=== PATIENT | male | born 1955 | race African-American/Black ===

== ENCOUNTER 2016-10-13 08:24 | Inpatient (IN) | payer MEDICAID ==
[~2016-10-13] VITALS: Ht 172.7 cm; Wt 66.5 kg
[2016-10-13] VITALS (24 sets, daily range): BP systolic 91–150; BP diastolic 56–94
[~2016-10-13 08:24] MED LIST: ALBUTEROL FS 2.5 MG/3 ML VIAL.NEB ONE
[2016-10-13] MEDS ORDERED: IPRATROPIUM NEB FS 0.5 MG/2.5 ML AMPUL.NEB ONE (08:25)
[2016-10-13] MEDS ORDERED: ALBUTEROL FS 2.5 MG/3 ML VIAL.NEB CONTNEB ONE (08:30)
[2016-10-13] MEDS ORDERED: IV NS 0.9% 500 ML IV ONE ×2 (08:30→08:31)
[2016-10-13] MEDS ORDERED: LEVOFLOXACIN 750 MG /D5W 150ML 750 MG in PREMIX 1 EA IV SCH (08:30)
[2016-10-13] MEDS ORDERED: IPRATROPIUM NEB FS 0.5 MG/2.5 ML AMPUL.NEB NEB ONE (08:30)
[2016-10-13] MEDS ORDERED: methylPREDNISolone SOD SUCC 125 MG/2ML VIAL IV ONE (08:30)
[2016-10-13] MEDS ORDERED: IV SET PRIMARY PUMP SET 1 EA INFUS.SET MC ONE ×3 (08:31→11:54)
[2016-10-13] MEDS ORDERED: methylPREDNISolone SOD SUCC 125 MG/2ML VIAL ONE (08:31)
[2016-10-13] MEDS ORDERED: LEVOFLOXACIN 750 MG /D5W 150ML 150 ML IV ONE (08:31)
[2016-10-13 08:41] LABS: ABG BASE EXCESS 1.7 mmol/L; ABG OXYGEN SATURATION 95.6 % (92.0-98.5); ABG PCO2 81.6 mmHg (35.0-45.0); ABG PH 7.213 (7.350-7.450); ABG PO2 92.1 mmHg (75.0-100.0); ABG TOTAL HEMOGLOBIN 14.1 G/dL (13.5-18.0); AaDO2 99.3 mmHg; COHb 0.7 % (0.5-1.5); MetHb 0.3 % (0.0-1.5); O2Hb 94.6 % (94.0-97.0); SITE, ABG Left Radial; VENT MODE, BG 6L MASK
--- NOTE | 2016-10-13 08:43 | NUR ---
[id number] FROM 4 SEASONS: SOB, HYPOXIA SINCE 744. ALBUTEROL GIVEN IN FIELD. PT AAO X3. PT WHEEZING. PT PLACED IN GOWN AND MONITOR. DR CRUZ AT BEDSIDE. RT AT BEDSIDE. RN AT BEDSIDE.
--- NOTE | 2016-10-13 08:51 | NUR ---
PT PLACED ON BIPAP 15/5, RATE 11, FIO2 50%. CONTINUE TO MONITOR.
[2016-10-13 09:10] LABS: CALCIUM, SERUM 8.9 mg/dL (8.5-10.1); CARBON DIOXIDE 34 mmol/L (21-32); CHLORIDE 103 mmol/L (98-107); CREATININE 0.7 mg/dL (0.6-1.3); GFR 138 mL/min (>60); GLUCOSE 153 mg/dL (74-106); POTASSIUM 4.4 mmol/L (3.5-5.1); SODIUM SERUM 142 mmol/L (136-145); UREA NITROGEN, BLOOD 9 mg/dL (7-18)
[2016-10-13] MEDS ORDERED: NA P133E RC (09:14)
[2016-10-13] MEDS ORDERED: VIT1CAPS32 PO (09:14)
[2016-10-13] MEDS ORDERED: FLUT10.62 INH (09:14)
[2016-10-13] MEDS ORDERED: FLUT1DIS INH (09:14)
[2016-10-13] MEDS ORDERED: AMLO10TA2 PO (09:14)
[2016-10-13] MEDS ORDERED: PANT40TA2 PO (09:14)
[2016-10-13] MEDS ORDERED: HYDR-552 PO (09:14)
[2016-10-13] MEDS ORDERED: ASPI81TA2 PO (09:14)
[2016-10-13] MEDS ORDERED: HYDR12.55 PO (09:14)
[2016-10-13] MEDS ORDERED: SERT25TA5 PO (09:14)
[2016-10-13] MEDS ORDERED: MAGN400O6 PO (09:14)
[2016-10-13] MEDS ORDERED: LEVE1000 PO (09:14)
[2016-10-13] MEDS ORDERED: ALBU2.5V13 INH (09:14)
[2016-10-13] MEDS ORDERED: ACET-868 PO (09:14)
[2016-10-13 09:18] LABS: TROPONIN I < 0.017 ng/mL (0.00-0.056)
[2016-10-13 09:25] LABS: ALANINE AMINOTRANSFERASE 35 U/L (12-78); ALBUMIN 3.7 g/dL (3.4-5.0); ALKALINE PHOSPHATASE 103 U/L (46-116); ASPARTATE AMINOTRANSFERASE 35 U/L (15-37); B-TYPE NATRIURETIC PEPTIDE 62 PG/ML (0-125); BILIRUBIN,DIRECT 0.1 mg/dL (0.0-0.2); BILIRUBIN,TOTAL 0.3 mg/dL (0.2-1.0); TOTAL PROTEIN, SERUM 8.3 g/dL (6.4-8.2)
[2016-10-13] MEDS ORDERED: PIPERACILLIN /TAZOBACTAM 3.375 G in IV D5W 50 ML IV ONE (09:30)
--- NOTE | 2016-10-13 09:30 | NUR ---
PT VERBALIZES RELIEF WITH BIPAP. CONTINUE TO MONITOR.
[2016-10-13 09:37] LABS: BASOPHILS % (AUTO) 0.4 % (0.0-2.0); EOSINOPHILS # (AUTO) 0.4 /CMM (0.0-0.7); EOSINOPHILS % (AUTO) 5.2 % (0.0-6.0); HEMATOCRIT 41 % (39-51); HEMOGLOBIN 13.3 g/dL (13.5-17.5); LYMPHOCYTES # (AUTO) 2.8 /CMM (0.8-4.8); LYMPHOCYTES % (AUTO) 35.6 % (20.0-44.0); MEAN CORPUSCULAR HEMOGLOBIN 29 PG (26.0-33.0); MEAN CORPUSCULAR HGB CONC 32 g/dl (31.0-36.0); MEAN CORPUSCULAR VOLUME 91 fL (80-96); MONOCYTES # (AUTO) 1.2 /CMM (0.1-1.30); MONOCYTES % (AUTO) 15.1 % (2.0-12.0); NEUTROPHILS # (AUTO) 3.5 /CMM (1.8-8.9); NEUTROPHILS % (AUTO) 43.7 % (43.0-81.0); PLATELET COUNT (AUTO) 251 /CMM (150-450); RED BLOOD CELL COUNT(AUTO) 4.52 MIL/uL (4.5-6.0)
[2016-10-13 09:51] LABS: EOSINOPHILS % (MANUAL) 5 % (0-4); LYMPHOCYTES % (MANUAL) 31 % (16-48); MONOCYTES % (MANUAL) 14 % (0-11.0); NEUTROPHILS % (MANUAL) 50 (42-76)
[2016-10-13 09:52] LABS: PLATELET ESTIMATE ADEQUATE
--- NOTE | 2016-10-13 10:08 | NUR ---
REPORT GIVEN TO SAM WOLF FOR CONTINUITY OF CARE.
--- NOTE | 2016-10-13 10:30 | NUR ---
SAMPLE WASHER NOTES RECEIVED PATIENT FROM ER DUE TO COPD EXACERBATION , AOX3 , DENIES DISCOMFORT AT THIS TIME , SPO2 OF 97% VIA BIPAP WITH SETTINGS OF 15/5 , RATE 12 FIO2 50% , ST 115 ON BEDSIDE MONITOR , SKIN ASSESSMENT DONE NO WOUNDS NOTED , SKIN IS INTACT , IV OF L FA # 18 AND R HAND # 18 PATENT AND INTACT SL , ALL NEEDS ATTENDED , BED ON LOW AND LOCKED POSITION , SIDE RAILS X2 ,CALL LIGHT WITHIN REACH , HOB @ 35 , WILL CONTINUE TO MONITOR
[2016-10-13] MEDS ORDERED: ONDANSETRON HCL/PF 4 MG/2 ML VIAL IVP PRN (11:00)
[2016-10-13] MEDS ORDERED: Z GUARD REMEDY 2 OZ OINT TP PRN (11:00)
[2016-10-13] MEDS ORDERED: ACETAMINOPHEN 325 MG TABLET PO PRN (11:00)
[2016-10-13] MEDS ORDERED: MAGNESIUM HYDROXIDE 30 ML UDC PO PRN (11:00)
[2016-10-13] MEDS ORDERED: MAG HYDROX/AL HYDROX/SIMETH 30 ML UDC PO PRN (11:00)
[2016-10-13] MEDS ORDERED: NA PHOS,M-B/NA PHOS,DI-BA 1 EA ENEMA RC PRN (11:30)
[2016-10-13] MEDS ORDERED: SECONDARY IV SET 1 EA INFUS.SET MC ONE (11:54)
[2016-10-13] MEDS: PANTOPRAZOLE 40 MG VIAL IV SCH (12:00)
[2016-10-13] MEDS: methylPREDNISolone SOD SUCC 125 MG/2ML VIAL IV SCH ×2 (12:00→16:03)
[2016-10-13] MEDS ORDERED: ALBUTEROL FS 2.5 MG/0.5 ML VIAL.NEB INH SCH (12:00)
[2016-10-13] MEDS: IV NS 0.9% 1,000 ML IV PRN ×2 (12:01→22:57)
[2016-10-13 12:20] LABS: ABG BASE EXCESS 3.2 mmol/L; ABG OXYGEN SATURATION 95.1 % (92.0-98.5); ABG PCO2 76.2 mmHg (35.0-45.0); ABG PH 7.251 (7.350-7.450); ABG PO2 90.4 mmHg (75.0-100.0); ABG TOTAL HEMOGLOBIN 13.4 G/dL (13.5-18.0); AaDO2 180.4 mmHg; COHb 0.9 % (0.5-1.5); MetHb 0.8 % (0.0-1.5); O2Hb 93.5 % (94.0-97.0); SITE, ABG Right Radial; VENT MODE, BG ST 15/5 BUR 12
[2016-10-13] MEDS: IPRATROPIUM NEB FS 0.5 MG/2.5 ML AMPUL.NEB NEB SCH ×4 (12:26→23:52)
[2016-10-13] MEDS: ALBUTEROL HALF STRENGTH 1.25 MG/3 ML VIAL.NEB NEB SCH ×4 (12:27→23:52)
--- NOTE | 2016-10-13 12:29 | NUR ---
AIRPLANE COVER MAKER NOTES RT VERNA RELAYED ABG RESULT TO DR MASCORRO , ORDERED TO CHANGE BIPAP SETTINGS TO 22/5 , FIO2 50% RATE OF 12 , ABG AFTER TWO HOURS , ORDERS CARRIED OUT
[2016-10-13] MEDS: LEVOFLOXACIN 750 MG /D5W 150ML 750 MG in PREMIX 1 EA IV SCH (12:31)
--- NOTE | 2016-10-13 13:58 | NUR ---
ART STUDIO TEACHER NOTES SPOKE WITH JAX INGRAM PUBLICATIONS INSPECTOR , NOTIFIED REGARDING HYDRODIURIL 12.5 DAILY PRN PARAMETERS , PER PUBLICATIONS INSPECTOR GIVE MEDICATION IF SBP GREATER THAN 160 , PT ALSO HAS A CRANBERRY EXTRACT , PER PHARMACY THEY DON'T CARRY THAT MEDICATION , PER MD DISCONTINUE CRANBERRY EXTRACT
--- NOTE | 2016-10-13 14:30 | NUR ---
SENIOR PATIENT ACCOUNT REPRESENTATIVE NOTES ABG RELAYED TO DR MASCORRO , NOTIFIED PT ON BIPAP 03/11 RATE 12 FIO2 50 , PER MD CHANGE FIO2 TO 30% , ORDERED CARRIED OUT .
[2016-10-13 14:56] LABS: ABG BASE EXCESS 2.1 mmol/L; ABG OXYGEN SATURATION 98.8 % (92.0-98.5); ABG PCO2 68.6 mmHg (35.0-45.0); ABG PO2 220.3 mmHg (75.0-100.0); ABG TOTAL HEMOGLOBIN 12.9 G/dL (13.5-18.0); COHb 0.6 % (0.5-1.5); O2Hb 97.2 % (94.0-97.0); SITE, ABG Right Radial; VENT MODE, BG ST 22/5 BUR 12
[2016-10-13] MEDS ORDERED: FLUTICASONE 110MCG 1 EA INHALER IH SCH (17:00)
--- NOTE | 2016-10-13 19:30 | NUR ---
RN INITIAL NOTES RECEIVED PT AWAKE ON BED, A/O X3. ON BIPAP, RATE 12, 30% FIO2, SATURATING WELL, NO S/S OF RESP DISTRESS. CURRENTLY ST ON THE MONITOR, HR 100'S. PT IS ON DIAPER AND ABLE TO USE URINAL NEEDED. LEFT FOREARM 18G AND RIGHT HAND 18G WITH NS @ 75MLS/HR, FLUSHED AND PATENT, NO S/S OF INFILTRATION/INFECTION, DRESSING CDI. BED LOW AND LOCKED, SIDERAILS UP, CALL LIGHT WITHIN REACH. WILL MONITOR CLOSELY
[2016-10-13] MEDS: LEVETIRACETAM (250 MG) 250 MG TABLET PO SCH (20:03)
[2016-10-13] MEDS: HEPARIN SODIUM, PORCINE 5000 UNITS/1 ML VIAL SQ SCH (20:04)
[2016-10-13] MEDS: FLUTICASONE/SALMETEROL DISKUS IH SCH (20:04)
[2016-10-13] MEDS: HYDROCODONE/APAP 5/325MG 1 EACH TABLET PO PRN (20:45)
[2016-10-13] MEDS ORDERED: LORAZEPAM INJ 2 MG/ML VIAL ONE (22:47)
[2016-10-13] MEDS: LORAZEPAM INJ 2 MG/ML VIAL IV PRN (22:57)
[2016-10-14] VITALS (42 sets, daily range): BP systolic 99–153; BP diastolic 60–103
[2016-10-14] MEDS: ALBUTEROL HALF STRENGTH 1.25 MG/3 ML VIAL.NEB NEB SCH ×6 (03:03→22:59)
[2016-10-14] MEDS: IPRATROPIUM NEB FS 0.5 MG/2.5 ML AMPUL.NEB NEB SCH ×6 (03:03→22:59)
[2016-10-14] MEDS: HYDROCODONE/APAP 5/325MG 1 EACH TABLET PO PRN (03:36)
[2016-10-14 04:39] LABS: BASOPHILS % (AUTO) 0.1 % (0.0-2.0); EOSINOPHILS % (AUTO) 0.3 % (0.0-6.0); HEMATOCRIT 35 % (39-51); HEMOGLOBIN 11.4 g/dL (13.5-17.5); LYMPHOCYTES # (AUTO) 1.3 /CMM (0.8-4.8); MEAN CORPUSCULAR HEMOGLOBIN 30 PG (26.0-33.0); MEAN CORPUSCULAR HGB CONC 32 g/dl (31.0-36.0); MEAN CORPUSCULAR VOLUME 92 fL (80-96); MONOCYTES # (AUTO) 0.5 /CMM (0.1-1.30); MONOCYTES % (AUTO) 6.6 % (2.0-12.0); NEUTROPHILS # (AUTO) 6.4 /CMM (1.8-8.9); PLATELET COUNT (AUTO) 226 /CMM (150-450); RED BLOOD CELL COUNT(AUTO) 3.84 MIL/uL (4.5-6.0); WHITE BLOOD COUNT (AUTO) 8.3 K/uL (4.3-11.0)
[2016-10-14 04:59] LABS: CALCIUM, SERUM 8.9 mg/dL (8.5-10.1); CREATININE 0.7 mg/dL (0.6-1.3); MAGNESIUM 1.8 mg/dL (1.8-2.4); PHOSPHORUS 3.4 mg/dL (2.5-4.9); POTASSIUM 4.4 mmol/L (3.5-5.1)
[2016-10-14 05:05] LABS: THYROID STIMULATING HORMONE 0.196 uIU/mL (0.358-3.74)
[2016-10-14] MEDS ORDERED: LORAZEPAM INJ 2 MG/ML VIAL ONE (05:12)
[2016-10-14] MEDS: LORAZEPAM INJ 2 MG/ML VIAL IV PRN ×3 (05:17→17:00)
--- NOTE | 2016-10-14 08:00 | NUR ---
SUPERVISOR CARTON AND CAN SUPPLY NOTE: RECEIVE PATIENT IN BED AWAKE AN ALERT TO SELF, CONFUSED AND AGITATED REMOVING BIPAP. BIPAP SETTINGS R 12 22/5 30%, SPO2 WNL HOWEVER PATIENT DESATURATES EASILY WHEN BIPAP IS REMOVED. STACHYCARDIA ON MONITOR HR 120'S. PATIENT NOTED WITH DIAPER AND RHAND 20G RUNNING NS @75ML/HR, IV PATENT AND INTACT. PATIENT REORIENTED AND MADE COMFORTABLE IN BED, RT AT BEDSIDE. SAFETY MEASURES OBSERVED. CALL LIGHT PLACED WITHIN REACH. ONGOING MONITORING
[2016-10-14] MEDS: PANTOPRAZOLE 40 MG VIAL IV SCH (08:21)
[2016-10-14] MEDS: methylPREDNISolone SOD SUCC 125 MG/2ML VIAL IV SCH ×3 (08:22→17:14)
[2016-10-14] MEDS: ASPIRIN 81 MG TAB.CHEW PO SCH (08:22)
[2016-10-14] MEDS: FLUTICASONE/SALMETEROL DISKUS IH SCH ×2 (08:22→21:00)
[2016-10-14] MEDS: LEVETIRACETAM (250 MG) 250 MG TABLET PO SCH ×2 (08:23→20:56)
[2016-10-14] MEDS: AMLODIPINE BESYLATE 10 MG TABLET PO SCH (08:23)
[2016-10-14] MEDS: SERTRALINE HCL 25 MG TABLET PO SCH (08:23)
[2016-10-14] MEDS: HEPARIN SODIUM, PORCINE 5000 UNITS/1 ML VIAL SQ SCH ×2 (08:23→20:58)
[2016-10-14 08:56] LABS: ABG BASE EXCESS 3.7 mmol/L; ABG OXYGEN SATURATION 93.6 % (92.0-98.5); ABG PCO2 62.3 mmHg (35.0-45.0); ABG PH 7.319 (7.350-7.450); ABG PO2 74.7 mmHg (75.0-100.0); ABG TOTAL HEMOGLOBIN 12.3 G/dL (13.5-18.0); COHb 0.4 % (0.5-1.5); MetHb 0.6 % (0.0-1.5); O2Hb 92.7 % (94.0-97.0); SITE, ABG Right Radial; VENT MODE, BG ST 22/5 BUR 12
[2016-10-14] MEDS ORDERED: Medication Not On Formulary EA (Vit C/Vitamin E Acetate/Cranb (Cranberry Concentrate Sof PO SCH (09:00)
[2016-10-14] MEDS ORDERED: HYDROCHLOROTHIAZIDE 25 MG TABLET PO PRN (09:00)
--- NOTE | 2016-10-14 09:00 | NUR ---
SLITTER CREASER SLOTTER HELPER NOTE: ABG DONE, RESULT REPORTED TO DR. MASCORRO. PATIENT CONTINUES ON BIPAP. NOTED WITH ONGOING CONFUSION AND AGITATION, REORIENTATION PROVIDED. BIPAP ADJUSTED. SAFETY MAINTAINED, CALL LIGHT WITHIN REACH. ONGOING MONITORING
--- NOTE | 2016-10-14 10:30 | NUR ---
OIL SPREADER OPERATOR NOTE: PATIENT CONTINUES TO BE CONFUSED, REMOVING BIPAP MORE FREQUENTLY, UNABLE TO REORIENT AT THIS TIME. RECEIVED ORDER FROM DR. MASCORRO FOR BILATERAL SOFT WRIST RESTRAINTS. BED BATH GIVEN, PATIENT CLEAN AND DRY. ALL LINENS CHANGED. EDUCATION PROVIDED TO PATIENT AND RESTRAINTS APPLIED. SAFETY MAINTAINED. ONGOING MONITORING
--- NOTE | 2016-10-14 11:26 | NUR ---
QUARTZ MINER BLASTING NOTE: PATIENT NOTED TO BE VERY AGITATED, LEGS OUT OF BED, PATIENT ASSISTED BACK INTO BED, REORIENTED. NOTED WITH INCREASED WORK OF BREATHING HR 130'S SPO2 91%. CHARGE NURSE AT BEDSIDE, RT AT BEDSIDE. PATIENT STATES THAT HE IS ANXIOUS. ATIVAN 0.5MG IVP ADMINISTERED PER ORDER IN AGREEMENT WITH CHARGE NURSE. SAFETY MAINTAINED. CLOSE MONITORING OF PATIENT.
--- NOTE | 2016-10-14 11:44 | NUR ---
VAC PRESS OPERATOR NOTE: DR. TRAN AT BEDSIDE MADE AWARE OF PATIENT'S CONDITION, AND INFORMED THAT PATIENT HAS RECEIVED ATIVAN 0.5MG, RECEIVED ORDER FOR ANOTHER ATIVAN 0.5MG TO BE ADMINISTERED ONCE NOW. MEDICATION ADMINISTERED ORDERED. ONGOING MONITORING.
[2016-10-14] MEDS ORDERED: LORAZEPAM INJ 2 MG/ML VIAL IV ONE (12:00)
[2016-10-14] MEDS: IV NS 0.9% 1,000 ML IV PRN (12:30)
[2016-10-14] MEDS: LEVOFLOXACIN 750 MG /D5W 150ML 750 MG in PREMIX 1 EA IV SCH (12:30)
--- NOTE | 2016-10-14 14:50 | NUR ---
PT ORALLY INTUBATED BY ER WITH 7.0 ET-TUBE SECURED AT 24CM. B/S EQUAL POSITIVE CO2 DETECTION. PATIENT PLACED ON MECH. VENT SETTINGS ORDERED ALARMS SET AND AUDIBLE. AMBUBAG AT HEAD OF BED. VENT PLUGGED INTO RED OUTLET.
--- NOTE | 2016-10-14 14:52 | NUR ---
ICU INTUBATION NOTE: DR. MASCORRO AT BEDSIDE. PATIENT NOTED TO BE ALERT TO SELF WITH INCREASED WORK OF BREATHING, TACHYPNEIC, TACHYCARDIA HR 140'S. SPO2 91% ON BIPAP SUPPORT. RECEIVED ORDER FOR INTUBATION. CALL MADE TO ER DOCTOR AND RT. RECEIVED ORDER FROM ER DOCTOR TO ADMINISTER ETOMIDATE 20MG AND ROCURONIUM 80MG. MEDICATION DRAWN AND ADMINISTERED PER ORDER. PATIENT INTUBATED WITH ETT 7.0 24 CMS AT THE LIP. OGTUBE INSERTED, STAT CHEST XRAY ORDERED AND DONE. PATIENT ON VENT WITH AC 16 TV 550 FIO2 40% AND PEEP OF 5. RECEIVED ORDER FROM DR. MASCORRO FOR DIPRIVAN DRIP. DR. TRAN MADE AWARE AND RECEIVED ORDER FOR MCKINLEY CATHETER FOR STRICT I&O MONITORING AND OGT PLACEMENT.ONGOING MONITORING.
[2016-10-14] MEDS ORDERED: ETOMIDATE 2 MG/ML VIAL IV ONE ×2 (14:58)
[2016-10-14] MEDS ORDERED: ROCURONIUM BROMIDE 50 MG/5 ML IV ONE (14:58)
[2016-10-14] MEDS ORDERED: IV SET PRIMARY PUMP SET 1 EA INFUS.SET MC ONE (15:29)
[2016-10-14] MEDS: PROPOFOL 100 ML IV PRN ×2 (16:00→20:44)
--- NOTE | 2016-10-14 16:00 | NUR ---
REACTOR FUELING SUPERVISOR NOTE: PER ORDER DIPRIVAN DRIP STARTED AT 5MCG/KG/MIN AND WILL TITRATE PER PROTOCOL IN ORDER TO KEEP PATIENT CALM AND COMFORTABLE. ONGOING MONITORING.
[2016-10-14 16:11] LABS: ABG BASE EXCESS 3.4 mmol/L; ABG OXYGEN SATURATION 97.6 % (92.0-98.5); ABG PCO2 51.9 mmHg (35.0-45.0); ABG PH 7.375 (7.350-7.450); AaDO2 119.5 mmHg; COHb 1.3 % (0.5-1.5); MetHb 0.9 % (0.0-1.5); O2Hb 95.5 % (94.0-97.0); SITE, ABG Right Brachial; VENT MODE, BG AC 16 550 40 +5
--- NOTE | 2016-10-14 16:31 | NUR ---
POULTRY VACCINATOR NOTE: RECEIVED CXR REPORT WITH ETT 7CM ABOVE PRISCILLA, RESULT REPORTED TO DR. MASCORRO RECEIVED ORDER TO ADVANCE ETT IN 3 CM. ABG IN AM AND CXR IN AM. RT MADE AWARE AND ETT ADVANCED. PATIENT RESTING COMFORTABLY IN BED. VSS, HR 118. ONGOING MONITORING.
--- NOTE | 2016-10-14 17:00 | NUR ---
HONING MACHINE OPERATOR PRODUCTION NOTE: ETT 7 NOTED TO BE 26.5CM AT THE LIP. NO DISTRESS NOTED. VS STABLE. ONGOING MONITORING
--- NOTE | 2016-10-14 17:00 | NUR ---
ET-TUBE ADVANCED TO 26.5CM PER MD ORDER.
--- NOTE | 2016-10-14 18:00 | NUR ---
MILITARY SCIENCE TEACHER NOTE: RECEIVED CALL FROM [facility] AND CRITICAL LAB REPORT THAT PATIENT IS MRSA POSITIVE, CALL MADE TO DR. TRAN AND INFORMED OF RESULT. RECEIVED TELEPHONE ORDER FOR BACTROBAN BID. ORDER READ BACK AND VERIFIED. WILL CARRY OUT.
--- NOTE | 2016-10-14 18:17 | NUR ---
ASSISTANT STORE MANAGER SALES NOTE: PATIENT RESTING IN BED INTUBATED WITH ETT 7/ 26.5CMS AT THE LIP WITH VENT SETTINGS AC 16 TV 550 FIO2 40% AND PEEP 5, NO DISTRESS NOTED. VS STABLE AT THIS TIME. SR ON TELE MONITOR. PATIENT SEDATED ON DIPRIVAN AT 50MCG/KG/MIN. [id number] RUNNING NS @ 75ML/HR, LFA 20G RUNNING DIPRIVAN. MCKINLEY CATHETER DRAINING CLEAR YELLOW URINE TO GRAVITY. BILATERAL SOFT WRIST RESTRAINTS IN PLACE TO PREVENT UNPLANNED EXTUBATION. SKIN AND CIRCULATION CHECK DONE, SAFETY MAINTAINED. PATIENT TURNED AND REPOSITIONED AND KEPT CLEAN AND DRY. EXTREMITIES OFFLOADED. ONGOING MONITORING.
--- NOTE | 2016-10-14 20:27 | NUR ---
AUTO SERVICE WRITER. INITIAL ASSESSMENT. RECEIVED THE PT REST ON THE BED. ORALLY INTUBATED. SEDATED EARL DIPRIVAN.ETT #7, LIP 26.5,AC 16,TV 550,FIO2 40%, PEEP 5. SAT 98%/ CARDIAC MONITIR SHOWING NSR. IV RT HAND 20G. IVF NS 75 ML/H,DIPRIVAN 50MCG/KG/MIN. FC PATENT. URINE DRAINING. OGT INTACT. CLAMPED. HOB ELEVATED. NPO, TAMIA SOFT WRIST RESTRAINT CHECKED AND RELEASED. NO INJURY OR REDNESS NOTED.PT IS NPO. TURN AND REPOSITION Q2H. WILL CONTINUE TO MONITOR VITALS.
[2016-10-14] MEDS: MUPIROCIN OINT 2% 22 GM TUBE SCH (20:59)
--- NOTE | 2016-10-14 22:00 | NUR ---
HUMAN RESOURCE ASSISTANT. ADVIR NOT GIVEN. PT ORALLY INTUBATED. PT GETTING BREATHING TREATMENT
[2016-10-15] VITALS (47 sets, daily range): BP systolic 92–134; BP diastolic 58–91
[2016-10-15] MEDS: PROPOFOL 100 ML IV PRN ×6 (00:15→21:13)
[2016-10-15] MEDS ORDERED: IV SET PRIMARY PUMP SET 1 EA INFUS.SET MC ONE ×2 (01:50→12:06)
[2016-10-15] MEDS: IV NS 0.9% 1,000 ML IV PRN ×2 (02:16→17:55)
--- NOTE | 2016-10-15 02:20 | NUR ---
TERMITE TREATER HELPER. AM CARE. ORAL CARE, BED BATH GIVEN. LINEN CHANGED. REMAINING SAME VENT SETTING TOLERATED WELL. SAT 99%. NO ACUTE DISTRESS NOTED. STOCK CHECKERER SHOWING NSR WITH PACS, IV RT HAND 20G. IVF NS 75 ML/H, DIPRIVAN 50 MCG/KG/MIN.TAMIA SOFT WRIST RESTRAINT CHECKED AND RELEASED. NO INJURY OR REDNESS NOTED RT NARE NGT INTACT. CLAMPED. HOB ELEVATED. NPO. AFEBRILE. TURN AND REPOSITION Q2H. WILL CONTINUE TO MONITOR VITALS.
[2016-10-15] MEDS: IPRATROPIUM NEB FS 0.5 MG/2.5 ML AMPUL.NEB NEB SCH ×6 (03:28→23:42)
[2016-10-15] MEDS: ALBUTEROL HALF STRENGTH 1.25 MG/3 ML VIAL.NEB NEB SCH ×6 (03:28→23:42)
[2016-10-15 05:00] LABS: BASOPHILS % (AUTO) 0.3 % (0.0-2.0); HEMATOCRIT 37 % (39-51); HEMOGLOBIN 12.2 g/dL (13.5-17.5); LYMPHOCYTES # (AUTO) 1.1 /CMM (0.8-4.8); LYMPHOCYTES % (AUTO) 10.2 % (20.0-44.0); MEAN CORPUSCULAR HEMOGLOBIN 30 PG (26.0-33.0); MEAN CORPUSCULAR HGB CONC 33 g/dl (31.0-36.0); MEAN CORPUSCULAR VOLUME 91 fL (80-96); MONOCYTES % (AUTO) 9.3 % (2.0-12.0); NEUTROPHILS # (AUTO) 8.4 /CMM (1.8-8.9); NEUTROPHILS % (AUTO) 80.2 % (43.0-81.0); PLATELET COUNT (AUTO) 245 /CMM (150-450); RDW COEFFICIENT OF VARIATION 13.6 (11.5-15.0); RED BLOOD CELL COUNT(AUTO) 4.11 MIL/uL (4.5-6.0); WHITE BLOOD COUNT (AUTO) 10.5 K/uL (4.3-11.0)
[2016-10-15 05:15] LABS: CALCIUM, SERUM 8.7 mg/dL (8.5-10.1); CREATININE 0.6 mg/dL (0.6-1.3); PHOSPHORUS 1.8 mg/dL (2.5-4.9); POTASSIUM 3.7 mmol/L (3.5-5.1)
--- NOTE | 2016-10-15 08:00 | NUR ---
ETCHER ENAMELING NOTE: ADVAIR NOTE GIVEN, PATIENT INTUBATED.
--- NOTE | 2016-10-15 08:00 | NUR ---
RN TRANSITIONAL NOTE: RECEIVED PATIENT RESTING IN BED INTUBATED WITH ETT 7/ 26.5CMS AT THE LIP WITH VENT SETTINGS AC 16 TV 550 FIO2 40% AND PEEP 5, TOLERATING WELL NO DISTRESS NOTED. VS STABLE AT THIS TIME. SR WITH PAC'S ON TELE MONITOR. PATIENT SEDATED ON DIPRIVAN AT 50MCG/KG/MIN. RHAND 20G RUNNING NS @ 75ML/HR, LFA 20G RUNNING DIPRIVAN. OGTUBE PATENT AND INTACT PLACEMENT VERIFIED, CLAMPED PATIENT IS NPO. MCKINLEY CATHETER DRAINING CLEAR YELLOW URINE TO GRAVITY. BILATERAL SOFT WRIST RESTRAINTS IN PLACE TO PREVENT UNPLANNED EXTUBATION. SKIN AND CIRCULATION CHECK DONE, SAFETY MAINTAINED. PATIENT TURNED AND REPOSITIONED AND KEPT CLEAN AND DRY. EXTREMITIES OFFLOADED. ONGOING MONITORING.
[2016-10-15] MEDS: HEPARIN SODIUM, PORCINE 5000 UNITS/1 ML VIAL SQ SCH ×2 (08:31→21:06)
[2016-10-15] MEDS: ASPIRIN 81 MG TAB.CHEW PO SCH (08:31)
[2016-10-15] MEDS: PANTOPRAZOLE 40 MG VIAL IV SCH (08:32)
[2016-10-15] MEDS: LEVETIRACETAM (250 MG) 250 MG TABLET PO SCH ×2 (08:32→21:06)
[2016-10-15] MEDS: methylPREDNISolone SOD SUCC 125 MG/2ML VIAL IV SCH ×3 (08:32→17:02)
[2016-10-15] MEDS: SERTRALINE HCL 25 MG TABLET PO SCH (08:32)
[2016-10-15] MEDS: FLUTICASONE/SALMETEROL DISKUS IH SCH (08:34)
[2016-10-15] MEDS: AMLODIPINE BESYLATE 10 MG TABLET PO SCH (08:34)
[2016-10-15] MEDS: MUPIROCIN OINT 2% 22 GM TUBE SCH ×2 (08:35→21:06)
--- NOTE | 2016-10-15 08:45 | NUR ---
FOAM RUBBER FABRICATOR NOTE: SEDATION VACATION PROVIDED. PATIENT NOTED TO BE ALERT AND ORIENTED TO PERSON AND PLACE ABLE TO FOLLOW COMMANDS. VS STABLE HOWEVER PATIENT VERY UNCOMFORTABLE SITTING UP. SEDATION INITIATED AND TITRATED PER PROTOCOL. DR. MASCORRO MADE AWARE OF PATIENT'S NEUROLOGIC STATUS. ONGOING MONITORING
[2016-10-15 09:04] LABS: ABG BASE EXCESS 5.7 mmol/L; ABG PCO2 42.9 mmHg (35.0-45.0); ABG PH 7.464 (7.350-7.450); ABG TOTAL HEMOGLOBIN 12.5 G/dL (13.5-18.0); AaDO2 99.9 mmHg; COHb 0.3 % (0.5-1.5); O2Hb 96.7 % (94.0-97.0); SITE, ABG Right Radial
--- NOTE | 2016-10-15 11:27 | NUR ---
POST ABG RESULTS DR MASCORRO ORDERED VENT CHANGES AC12, VT 500, +5. VENT ALARMS CHECKED + AUDIBLE. RN AWARE. Addendum: 10/15/16 at 1128 by RAMÍREZ DONOVAN RT Amended: Links added.
[2016-10-15] MEDS: LEVOFLOXACIN 750 MG /D5W 150ML 750 MG in PREMIX 1 EA IV SCH (12:14)
--- NOTE | 2016-10-15 13:43 | NUR ---
WOUND CARE CONSULT: PT PRESENTS WITH INTACT SKIN. PT TO BE TURNED AND REPOSITIONED EVERY 2 HRS PT CONDITION PERMITS, HEELS FLOATED. MCKINLEY IN USE. PT INTUBATED AT THIS TIME. ALL SKIN PROTECTION MEASURES DISCUSSED WITH NURSING STAFF. MD IN AGREEMENT WITH PLAN OF CARE.
[2016-10-15] MEDS ORDERED: K PHOS NEUTRAL 250 MG TABLET NG ONE (18:00)
--- NOTE | 2016-10-15 18:45 | NUR ---
FRICTION SAW OPERATOR NOTE: PATIENT RESTING IN BED INTUBATED WITH ETT / 26.5CMS AT THE LIP WITH VENT SETTINGS ORDERED NO DISTRESS NOTED. VS STABLE AT THIS TIME. SR ON TELE MONITOR. PATIENT SEDATED ON DIPRIVAN AT 50MCG/KG/MIN. RHAND 20G RUNNING NS @ 75ML/HR, LFA 20G RUNNING DIPRIVAN. MCKINLEY CATHETER DRAINING CLEAR YELLOW URINE TO GRAVITY. BILATERAL SOFT WRIST RESTRAINTS IN PLACE TO PREVENT UNPLANNED EXTUBATION. SKIN AND CIRCULATION CHECK DONE, SAFETY MAINTAINED. PATIENT TURNED AND REPOSITIONED AND KEPT CLEAN AND DRY. EXTREMITIES OFFLOADED. ONGOING MONITORING.
--- NOTE | 2016-10-15 19:09 | NUR ---
BATCH ATTENDANT. INITIAL ASSESSMENT. RECEIVED THE PT REST ON THE BED. ORALLY INTUBATED. ETT #7, LIP 26,AC 12,TV 500,FIO2 40%, PEEP 5. SAT 98%. RED LEADER SHOWING NSR. IV RT HAND 20G. IVF NS 75 ML/H, DIPRIVAN 50MCG/KG/MIN. OGT INTACT. CLAMPED. FC PATENT. URINE DRAINING. AFEBRILE. TURN AND REPOSITION Q2H. WILL CONTINUE TO MONITOR VITALS.
[2016-10-16] VITALS (63 sets, daily range): BP systolic 40–136; BP diastolic 19–93
[2016-10-16] MEDS: PROPOFOL 100 ML IV PRN ×6 (01:58→22:14)
--- NOTE | 2016-10-16 03:33 | NUR ---
TRAINING MANAGER. AM CARE. ORAL CARE, BED BATH GIVEN. LINEN CHANGED. REMAINING SAME VENT SETTING TOLERATED WELL.SAT 98%. NO ACUTE DISTRESS NOTED. MATTRESS FILLER SHOWING NSR. IV RT HAND 20G IVF NS 75L/ ML/H PRIVAN 50MCG/KG/MIN. FC PATENT. URINE DRAINING. TAMIA SOFT WRIST RESTRAINT CHECKED AND RELEASED. NO INJURY OR REDNESS NOTED. WILL CONTINUE TO MONITOR VITALS.
[2016-10-16] MEDS: ALBUTEROL HALF STRENGTH 1.25 MG/3 ML VIAL.NEB NEB SCH ×6 (03:55→23:39)
[2016-10-16] MEDS: IPRATROPIUM NEB FS 0.5 MG/2.5 ML AMPUL.NEB NEB SCH ×6 (03:55→23:39)
[2016-10-16] MEDS ORDERED: IV SET PRIMARY PUMP SET 1 EA INFUS.SET MC ONE ×2 (04:48→13:24)
[2016-10-16 05:18] LABS: CALCIUM, SERUM 8.5 mg/dL (8.5-10.1); CREATININE 0.6 mg/dL (0.6-1.3); PHOSPHORUS 3.1 mg/dL (2.5-4.9); POTASSIUM 3.7 mmol/L (3.5-5.1)
[2016-10-16] MEDS: PANTOPRAZOLE 40 MG VIAL IV SCH (08:36)
[2016-10-16] MEDS: methylPREDNISolone SOD SUCC 125 MG/2ML VIAL IV SCH ×3 (08:37→17:06)
[2016-10-16] MEDS: LEVETIRACETAM (250 MG) 250 MG TABLET PO SCH ×2 (08:37→21:08)
[2016-10-16] MEDS: ASPIRIN 81 MG TAB.CHEW PO SCH (08:37)
[2016-10-16] MEDS: AMLODIPINE BESYLATE 10 MG TABLET PO SCH (08:37)
[2016-10-16] MEDS: SERTRALINE HCL 25 MG TABLET PO SCH (08:37)
[2016-10-16] MEDS: HEPARIN SODIUM, PORCINE 5000 UNITS/1 ML VIAL SQ SCH ×2 (08:45→21:09)
[2016-10-16] MEDS: MUPIROCIN OINT 2% 22 GM TUBE SCH ×2 (08:45→21:08)
--- NOTE | 2016-10-16 10:16 | NUR ---
CUSTOMER DEVELOPMENT MANAGER. PT WEANING TRAIL FAILED. PT BACK ON SAME VENT SETTINGS. WILL CONTINUE TO MONITOR VITALS.
--- NOTE | 2016-10-16 12:00 | NUR ---
RN NOTES RECEIVED PT ON BED , INTUBATED, INTUBATED. ETT #7, LIP 26,AC 12,TV 500,FIO2 40%, PEEP 5. SAT 99%. CYBERATHLETE SHOWING ST IN 100'S ,IVF NS 75 ML/H RUNNING VIA R HAND IV SITE G20 , DIPRIVAN 50MCG/KG/MIN RUNNING VIA L FA IV SITE # 20 , SITES CDI, OGT INTACT CLAMPED. MCKINLEY DRAINING TO GRAVITY , PATENT. VSS STABLE , TURN AND REPOSITION Q2H. SR UP X3, WILL CONTINUE TO MONITOR PT CLOSELY AND NOTIFY MD FOR ANY SIGNIFICANT CHANGES .
[2016-10-16] MEDS: LEVOFLOXACIN 750 MG /D5W 150ML 750 MG in PREMIX 1 EA IV SCH (13:11)
--- NOTE | 2016-10-16 15:00 | NUR ---
RN NOTES VSS STABLE , PT APPEARS COMFORTABLE . DIPRIVAN AT 50 MCG/KG/MIN. CONTINUE TO MONITOR.
[2016-10-16] MEDS: IV NS 0.9% 1,000 ML IV PRN (15:57)
--- NOTE | 2016-10-16 18:11 | NUR ---
RN NOTES PT STABLE, STILL INTUBATED, TOLERATING CURRENT VENT SETTING WELL, IVF NS AT 75 RUNNING VIA R HAND IV SITE , DIPRIVAN AT 50MCG/ KG/ MIN RUNNING VIA L FA IV SITE, ELÍAS RAINING TO GRAVITY WELL, SR UP x3, BED LOCKED AND IN LOW POSITION ,MEDICATED PER MD ORDER , NO SIGNIFICANT CHANGES NOTED ON THIS SHIFT .
--- NOTE | 2016-10-16 19:30 | NUR ---
RN INITIAL NOTES RECEIVED PT SEDATED ON BED WITH DIPRIVAN 50MCG/KG/MIN, STILL ABLE TO MOVE AT TIMES, BILATERAL SOFT WRIST RESTRAINTS SECURED. CURRENTLY SR ON THE MONITOR, HR 90'S. ON VENT, AC 12, TV 500, 40% FIO2, PEEP 5, ETT 01/07, NO S/S OF RESP DISTRESS, SATURATING WELL. PT WAS ABLE TO PULL OUT HIS OGT, WILL REINSERT A NEW ONE. MCKINLEY CATH INTACT. ON DIAPERS. RIGHT HAND 20G AND LEFT FOREARM 20G WITH NS @ 75MLS/HR, BOTH FLUSHED AND PATENT, NO S/S OF INFILTRATION/INFECTION, DRESSINGS CDI. BED LOW AND LOCKED, SIDERAILS UP. WILL MONITOR
[2016-10-16] MEDS: LORAZEPAM INJ 2 MG/ML VIAL IV PRN (21:09)
[2016-10-16] MEDS: ACETYLCYSTEINE 10% SOLN 400 MG/4 ML VIAL NEB SCH (23:39)
[2016-10-17] VITALS (35 sets, daily range): BP systolic 99–137; BP diastolic 73–90
[2016-10-17] MEDS ORDERED: IV SET PRIMARY PUMP SET 1 EA INFUS.SET MC ONE ×4 (02:16→20:09)
[2016-10-17] MEDS: PROPOFOL 100 ML IV PRN ×6 (02:26→22:47)
[2016-10-17] MEDS: IPRATROPIUM NEB FS 0.5 MG/2.5 ML AMPUL.NEB NEB SCH ×6 (03:44→23:00)
[2016-10-17] MEDS: ALBUTEROL HALF STRENGTH 1.25 MG/3 ML VIAL.NEB NEB SCH ×6 (03:44→23:00)
[2016-10-17] MEDS: IV NS 0.9% 1,000 ML IV PRN ×2 (05:14→15:42)
[2016-10-17 05:18] LABS: CALCIUM, SERUM 8.5 mg/dL (8.5-10.1); CREATININE 0.6 mg/dL (0.6-1.3); POTASSIUM 3.3 mmol/L (3.5-5.1)
--- NOTE | 2016-10-17 07:00 | NUR ---
PARKING LOT CHAUFFEUR- PARKING LOT CHAUFFEUR NOTE: RECEIVED PT RESTING, SEDATED IN BED, INTUBATED WITH ETT TUBE 7, 26 CM AT THE LIP. ON MECHANICAL VENT, SETTINGS ORDERED, RESPIRATIONS EVEN AND UNLABORED, NO DISTRESS NOTED. BEDSIDE MONITOR REVEALS SINUS RHYTHM, HR= 85. TWO IVS PRESENT: RIGHT HAND 20G RUNNING NS @ 75 MLS/HR AND LFA 20G RUNNING DIPRIVAN AT 50 MCG/MIN. MCKINLEY CATHETER DRAINING TO GRAVITY CLEAR YELLOW URINE. PT CONTINUES ON BILATERAL SOFT WRIST RESTRAINTS. SAFETY MEASURES TAKEN: BED LOCKED AND IN LOW POSITION, SIDE RAILS UP X2 AND BED ALARM ON, WILL CONTINUE TO MONITOR. Addendum: 10/18/16 at 1334 by LISSY WOLF RN OG TUBE PRESENT AND CLAMPED. Addendum: 10/18/16 at 1542 by LISSY WOLF RN PLEASE DISREGARD DATE: NOTE WAS FOR 10/18/16 AT 0700..
[2016-10-17] MEDS: ACETYLCYSTEINE 10% SOLN 400 MG/4 ML VIAL NEB SCH ×3 (07:11→23:00)
--- NOTE | 2016-10-17 07:30 | NUR ---
RN INITIAL NOTES PT IN BED, SEDATED WITH DIP 50 MCG BUT STILL ABLE TO MOVE, WILL GIVE ATIVAN OR CONTACT MD IF NEEDED TO INCREASE DIP. PT HAS ETT 01/07, AC 12, TV 500, FIO2 40%, PEEP 5, TOLERATING WELL; PT ALSO HAS OGT, CDI, FLUSHING WELL, NO RESIDUAL, OGT CLAMPED. ON TELE MONITOR WITH SR 80'S. NO SIGNS OF DISTRESS NOTED. PT HAS BILATERAL SOFT WRIST RESTRAINTS, TWO FINGER SPACE WITH GOOD BLOOD CIRCULATION. SKIN CDI. PT HAS MCKINLEY CATH, CDI, CLEAR YELLOW URINE DRAINING. IV ON RIGHT HAND 20G AND LFA 20G WITH NS @ 75 CC/HR, BOTH FLUSHED AND PATENT, NO S/S OF INFILTRATION/INFECTION, DRESSINGS CDI. CALL LIGHT WITHIN EASY REACH, SAFETY MEASURES MAINTAINED, WILL CONTINUE TO MONITOR AND FOLLOW MD ORDERS.
[2016-10-17 08:57] LABS: ABG BASE EXCESS 5.8 mmol/L; ABG OXYGEN SATURATION 98.9 % (92.0-98.5); ABG PCO2 39.3 mmHg (35.0-45.0); ABG PH 7.493 (7.350-7.450); ABG PO2 201.4 mmHg (75.0-100.0); ABG TOTAL HEMOGLOBIN 13.2 G/dL (13.5-18.0); AaDO2 38.6 mmHg; MetHb 0.8 % (0.0-1.5); O2Hb 97.1 % (94.0-97.0); SITE, ABG Right Radial; VENT MODE, BG AC 12 500 40% +5
[2016-10-17] MEDS: LEVETIRACETAM (250 MG) 250 MG TABLET PO SCH ×2 (09:07→20:16)
[2016-10-17] MEDS: ASPIRIN 81 MG TAB.CHEW PO SCH (09:07)
[2016-10-17] MEDS: SERTRALINE HCL 25 MG TABLET PO SCH (09:07)
[2016-10-17] MEDS: PANTOPRAZOLE 40 MG VIAL IV SCH (09:07)
[2016-10-17] MEDS: methylPREDNISolone SOD SUCC 125 MG/2ML VIAL IV SCH ×3 (09:07→16:12)
[2016-10-17] MEDS: MUPIROCIN OINT 2% 22 GM TUBE SCH ×2 (09:08→20:16)
[2016-10-17] MEDS: AMLODIPINE BESYLATE 10 MG TABLET PO SCH (09:08)
[2016-10-17] MEDS: HEPARIN SODIUM, PORCINE 5000 UNITS/1 ML VIAL SQ SCH ×2 (09:09→20:15)
--- NOTE | 2016-10-17 09:19 | NUR ---
RT NOTE: REPORTED ABG RESULTS TO NURSE (PAMELA)
[2016-10-17] MEDS: POTASSIUM CL. PREMIX PERIPHER. 50 ML IV SCH ×2 (11:46→12:33)
[2016-10-17] MEDS: LEVOFLOXACIN 750 MG /D5W 150ML 750 MG in PREMIX 1 EA IV SCH (13:17)
--- NOTE | 2016-10-17 16:41 | NUR ---
RT NOTE: PATIENT RECEIVED ORALLY INTUBATED WITH 7.0 ETT SECURED WITH AT 26 CM MID LIP LINE ON [facility] VENT. MOVED ETT FROM LEFT TO RIGHT VIA ANCHORFAST PER POLICY. ALARMS VERIFIED AND AUDIBLE. SUCTIONED AND LAVAGED MODERATE AMOUNT OF THICK/ BLOOD TINGED SECRETIONS. VENT PLUGGED INTO RED OUTLET. AMBU BAG AT [facility].
--- NOTE | 2016-10-17 18:58 | NUR ---
RN CLOSING NOTES PT IN STABLE CONDITION, ALL MD ORDERS CARRIED OUT, VSS, AFEBRILE, IV'S CDI, NO SIGNS OF INFECTION/INFILTRATION, F/C CDI, DRAINING CLEAR YELLOW/GREEN URINE. ETT INTACT, TOLERATING VENT SETTINGS WELL. CALL LIGHT WITHIN EASY REACH, SAFETY MEASURES MAINTAINED, REPORT GIVEN TO NIGHT NURSE FOR CONTINUITY OF CARE. DIP @ 50 MCG AND NS @ 75 RUNNING.
[2016-10-17] MEDS: HYDROCODONE/APAP 5/325MG 1 EACH TABLET PO PRN (21:22)
--- NOTE | 2016-10-17 22:23 | NUR ---
rn:icu: pt grimacing and moving upper extremities despite Diprivan running at 50 mcg/kg/min. bilat soft wrist restraints in place. pt medicated for pain per md orders. will continue to monitor closely.
[2016-10-17] MEDS: LORAZEPAM INJ 2 MG/ML VIAL IV PRN (22:47)
[2016-10-18] VITALS (30 sets, daily range): BP systolic 88–128; BP diastolic 60–89
[2016-10-18] MEDS: PROPOFOL 100 ML IV PRN ×2 (03:16→07:38)
[2016-10-18] MEDS: IPRATROPIUM NEB FS 0.5 MG/2.5 ML AMPUL.NEB NEB SCH ×6 (03:19→23:27)
[2016-10-18] MEDS: ALBUTEROL HALF STRENGTH 1.25 MG/3 ML VIAL.NEB NEB SCH ×6 (03:19→23:27)
[2016-10-18] MEDS: IV NS 0.9% 1,000 ML IV PRN ×2 (04:23→17:24)
[2016-10-18 05:35] LABS: CALCIUM, SERUM 8.3 mg/dL (8.5-10.1); CREATININE 0.6 mg/dL (0.6-1.3); POTASSIUM 3.3 mmol/L (3.5-5.1)
--- NOTE | 2016-10-18 07:00 | NUR ---
LODGING HOUSE KEEPER- RECEIVED PT RESTING, SEDATED IN BED, INTUBATED WITH ETT TUBE 7, 26 CM AT THE LIP. ON MECHANICAL VENT, SETTINGS ORDERED, RESPIRATIONS EVEN AND UNLABORED, NO DISTRESS NOTED. BEDSIDE MONITOR REVEALS SINUS RHYTHM, HR= 85. TWO IVS PRESENT: RIGHT HAND 20G RUNNING NS @ 75 MLS/HR AND LFA 20G RUNNING DIPRIVAN AT 50 MCG/MIN. MCKINLEY CATHETER DRAINING TO GRAVITY CLEAR YELLOW URINE. OG TUBE PRESENT AND CURRENTLY CLAMPED. PT CONTINUES ON BILATERAL SOFT WRIST RESTRAINTS. SAFETY MEASURES TAKEN: BED LOCKED AND IN LOW POSITION, SIDE RAILS UP X2 AND BED ALARM ON, WILL CONTINUE TO MONITOR.
[2016-10-18] MEDS ORDERED: IV SET PRIMARY PUMP SET 1 EA INFUS.SET MC ONE ×2 (07:32→09:15)
[2016-10-18] MEDS: ACETYLCYSTEINE 10% SOLN 400 MG/4 ML VIAL NEB SCH ×3 (07:54→23:27)
[2016-10-18] MEDS: ASPIRIN 81 MG TAB.CHEW PO SCH (08:11)
[2016-10-18] MEDS: methylPREDNISolone SOD SUCC 125 MG/2ML VIAL IV SCH ×3 (08:11→17:25)
[2016-10-18] MEDS: PANTOPRAZOLE 40 MG VIAL IV SCH (08:11)
[2016-10-18] MEDS: LEVETIRACETAM (250 MG) 250 MG TABLET PO SCH ×2 (08:12→20:49)
[2016-10-18] MEDS: HEPARIN SODIUM, PORCINE 5000 UNITS/1 ML VIAL SQ SCH ×2 (08:12→20:50)
[2016-10-18] MEDS: AMLODIPINE BESYLATE 10 MG TABLET PO SCH (08:12)
[2016-10-18] MEDS: SERTRALINE HCL 25 MG TABLET PO SCH (08:12)
[2016-10-18] MEDS: MUPIROCIN OINT 2% 22 GM TUBE SCH ×2 (08:13→20:56)
--- NOTE | 2016-10-18 08:45 | NUR ---
VP PLATFORMS- DIPRIVAN DECREASED TO 40 MCG/MIN. PT ABLE TO NOD HEAD AND WIGGLE TOES. 0915- DIPRIVAN DECREASED TO 30 MG/MIN. VITAL SIGNS STABLE. 929- DR. LYON AT BEDSIDE. UPDATED MD WITH PT'S PLAN TO WEAN OFF VENTILATOR TODAY. MD AWARE. NO NEW ORDERS OBTAINED AT THIS TIME. 0945- DIPRIVAN DECREASED TO 20 MCG/MIN. PT TOLERATING THUS FAR. 1010- DIPRIVAN DECREASED TO 10 MCG/MIN. PT PLACED ON SIMV MODE. 1040- DIPRIVAN TURNED OFF. PT AWAKE, ALERT, ABLE TO FOLLOW SIMPLE COMMANDS. 1200- PT EXTUBATED BY RT AND PLACED ON 2L NC, SATURATING BETWEEN 90-94%. WILL CONTINUE TO MONITOR.
[2016-10-18] MEDS ORDERED: DC PROPOFOL WHEN EXTUBATED XX PRN (09:00)
[2016-10-18] MEDS: POTASSIUM CL. PREMIX PERIPHER. 50 ML IV SCH ×2 (09:20→10:20)
[2016-10-18] MEDS ORDERED: POTASSIUM CHLORIDE 20 MEQ POWDER PACKET GT SCH (10:00)
[2016-10-18 11:48] LABS: ABG BASE EXCESS 4.1 mmol/L; ABG OXYGEN SATURATION 95.8 % (92.0-98.5); ABG PCO2 43.9 mmHg (35.0-45.0); ABG PH 7.436 (7.350-7.450); ABG PO2 80.8 mmHg (75.0-100.0); ABG TOTAL HEMOGLOBIN 13.2 G/dL (13.5-18.0); AaDO2 153.9 mmHg; COHb 0.5 % (0.5-1.5); MetHb 0.8 % (0.0-1.5); O2Hb 94.6 % (94.0-97.0); SITE, ABG Right Radial; VENT MODE, BG SIMV PSV 12; VT, ABG 450 mL
--- NOTE | 2016-10-18 12:04 | NUR ---
PT EXTUBATED PER MD ORDER. PLACED ON 2LPM N/C ZERO RESP. DISTRESS NOTED AT THIS TIME. B/S EQUAL. ZERO STRIDOR NOTED.
[2016-10-18] MEDS ORDERED: SECONDARY IV SET 1 EA INFUS.SET MC ONE (12:46)
[2016-10-18] MEDS: LEVOFLOXACIN 750 MG /D5W 150ML 750 MG in PREMIX 1 EA IV SCH (12:51)
--- NOTE | 2016-10-18 16:00 | NUR ---
ROUGH PLANER TENDER- BILATERAL SOFT WRIST RESTRAINTS REMOVED AND DISCONTINUED PT NOT PULLING/REMOVING ANY LINES. PT NOT ATTEMPTING TO GET OUT OF THE BED, COMPLIANT WITH TREATMENT SO FAR. SAFETY ROUNDS COMPLETED. WILL CONTINUE TO MONITOR.
--- NOTE | 2016-10-18 17:00 | NUR ---
INSOLE CHANNELER- GAVE PT ICE CHIPS & JELLO. PT FREE OF S/S OF ASPIRATION, TOLERATED FEEDING WELL. WILL CONTINUE TO MONITOR.
--- NOTE | 2016-10-18 19:15 | NUR ---
STAFF COMMAND AND CONTROL OFFICER: RECEIVED PT ALERT AND AWAKE WT RESTLESSNESS. ABLE TO FOLLOW SIMPLE COMMANDS. ON 2L [address] ON ROTARY KILN OPERATOR WT HR IN THE 120s-130s. TACHYPNEIC WT RR IN THE 30s. 02 SAT 93%. SAFETY PRECAUTION NOTED. WILL CONTINUE TO MONITOR.
[2016-10-18] MEDS: ALBUTEROL HALF STRENGTH 1.25 MG/3 ML VIAL.NEB NEB PRN (20:03)
[2016-10-18] MEDS: IPRATROPIUM NEB FS 0.5 MG/2.5 ML AMPUL.NEB NEB PRN (20:03)
[2016-10-18] MEDS: LORAZEPAM INJ 2 MG/ML VIAL IV PRN (20:06)
--- NOTE | 2016-10-18 20:45 | NUR ---
BRIDGE ATTACHER: PLACED ON 12LPM 02 AT 40% FI02 VIA VENTURI MASK. BILAT. SOFT WRIST RESTRAINTS IN PLACE DUE TO TRYING TO PULL IV TUBINGS AND MASK. NOTED WT GOOD CIRCULATION AND NO SKIN BREAKDOWN. WILL CONTINUE TO MONITOR.
[2016-10-18] MEDS: HYDROCODONE/APAP 5/325MG 1 EACH TABLET PO PRN (20:50)
[2016-10-18 21:16] LABS: ABG BASE EXCESS 0.2 mmol/L; ABG OXYGEN SATURATION 93.2 % (92.0-98.5); ABG PCO2 58.2 mmHg (35.0-45.0); ABG PH 7.297 (7.350-7.450); ABG TOTAL HEMOGLOBIN 13.5 G/dL (13.5-18.0); AaDO2 145.3 mmHg; COHb 0.8 % (0.5-1.5); MetHb 0.9 % (0.0-1.5); O2Hb 91.6 % (94.0-97.0); SITE, ABG Right Radial; VENT MODE, BG VENTURI 40%
--- NOTE | 2016-10-18 21:17 | NUR ---
ABG DONE RN NOTIFIED
--- NOTE | 2016-10-18 21:40 | NUR ---
PT PLACED ON BIPAP. RN NOTIFIED AND CABLE INSTALLATION MANAGER. WILL CONTINUE TO MONITOR.
[2016-10-19] VITALS (34 sets, daily range): BP systolic 89–144; BP diastolic 61–95
[2016-10-19] MEDS: ALBUTEROL HALF STRENGTH 1.25 MG/3 ML VIAL.NEB NEB SCH ×7 (03:03→22:19)
[2016-10-19] MEDS: IPRATROPIUM NEB FS 0.5 MG/2.5 ML AMPUL.NEB NEB SCH ×7 (03:04→22:19)
[2016-10-19 05:20] LABS: BASOPHILS % (AUTO) 0.2 % (0.0-2.0); HEMATOCRIT 40 % (39-51); LYMPHOCYTES # (AUTO) 1.2 /CMM (0.8-4.8); LYMPHOCYTES % (AUTO) 7.2 % (20.0-44.0); MEAN CORPUSCULAR HEMOGLOBIN 30 PG (26.0-33.0); MEAN CORPUSCULAR HGB CONC 33 g/dl (31.0-36.0); MEAN CORPUSCULAR VOLUME 91 fL (80-96); MONOCYTES # (AUTO) 1.5 /CMM (0.1-1.30); MONOCYTES % (AUTO) 9.2 % (2.0-12.0); NEUTROPHILS % (AUTO) 83.4 % (43.0-81.0); PLATELET COUNT (AUTO) 296 /CMM (150-450); RDW COEFFICIENT OF VARIATION 13.8 (11.5-15.0); RED BLOOD CELL COUNT(AUTO) 4.37 MIL/uL (4.5-6.0); WHITE BLOOD COUNT (AUTO) 16.8 K/uL (4.3-11.0)
[2016-10-19 05:37] LABS: CALCIUM, SERUM 8.3 mg/dL (8.5-10.1); CREATININE 0.7 mg/dL (0.6-1.3); MAGNESIUM 2.2 mg/dL (1.8-2.4); PHOSPHORUS 2.1 mg/dL (2.5-4.9)
--- NOTE | 2016-10-19 05:57 | NUR ---
OFF BIPAP. PLACED ON 4L NC. RN NOTIFIED.
--- NOTE | 2016-10-19 06:35 | NUR ---
SUBSYSTEMS ENGINEER: PT. TOLERATED BIPAP SETTINGS THROUGHOUT THE NIGHT WT 02 SAT ABOVE 96%. HR IMPROVED IN LOW 100s AND EVEN SR AT TIMES IN THE 90s. MORE ALERT AND AWAKE. CALM AND COOPERATIVE AT THIS TIME. OFF BIPAP AND NOW ON 4L 02 VIA NC AND WT NO ACUTE DISTRESS. VERBALIZED HE WAS HUNGRY. GIVEN JUICY KANDACE WT WATER AND ABLE TO SWALLOW WT NO S/S OF ASPIRATION. HOB ELEVATED AT ALL TIMES. RESTRAINTS RELEASED WT NO EPISODES OF TRYING TO PULL TUBINGS. SAFETY PRECAUTION NOTED. WILL ENDORSE TO DAY SHIFT FOR CONTINUITY OF CARE.
[2016-10-19] MEDS: IV NS 0.9% 1,000 ML IV PRN (06:45)
--- NOTE | 2016-10-19 07:15 | NUR ---
RN INITIAL NOTES PT IN BED, A/O X2, FOLLOWS COMMANDS, HOB ELEVATED 35 DEGREES, ON NC 3L, PT SEEMS SOB, WILL HAVE RAMÍREZ RT CHANGE NC TO BIPAP. ON TELE MONITOR WITH ST LOW 100'S; DENIES CHEST PAIN. SKIN CDI. PT HAS MCKINLEY CATH, CDI, CLEAR YELLOW URINE DRAINING. IV ON LEFT HAND 20G AND LFA 20G WITH NS @ 75 CC/HR, BOTH FLUSHED AND PATENT, NO S/S OF INFILTRATION/INFECTION, DRESSINGS CDI. CALL LIGHT WITHIN EASY REACH, SAFETY MEASURES MAINTAINED, WILL CONTINUE TO MONITOR AND FOLLOW MD ORDERS.
--- NOTE | 2016-10-19 07:30 | NUR ---
RN NOTES PT PUT BACK ON BIPAP D/T SOB, WILL CONTINUE TO MONITOR.
[2016-10-19] MEDS: ACETYLCYSTEINE 10% SOLN 400 MG/4 ML VIAL NEB SCH ×3 (07:44→22:19)
[2016-10-19] MEDS: ASPIRIN 81 MG TAB.CHEW PO SCH (08:00)
[2016-10-19] MEDS: methylPREDNISolone SOD SUCC 125 MG/2ML VIAL IV SCH ×2 (08:00→12:37)
[2016-10-19] MEDS: LEVETIRACETAM (250 MG) 250 MG TABLET PO SCH ×2 (08:00→20:05)
[2016-10-19] MEDS: SERTRALINE HCL 25 MG TABLET PO SCH (08:00)
[2016-10-19] MEDS: AMLODIPINE BESYLATE 10 MG TABLET PO SCH (08:00)
[2016-10-19] MEDS: PANTOPRAZOLE 40 MG VIAL IV SCH (08:00)
--- NOTE | 2016-10-19 08:00 | NUR ---
RN NOTES PT SEEMS FOR CALM, WILL TRY TO SWITCH BACK TO NC 3L.
[2016-10-19] MEDS: MUPIROCIN OINT 2% 22 GM TUBE SCH ×2 (08:01→20:05)
[2016-10-19] MEDS: HEPARIN SODIUM, PORCINE 5000 UNITS/1 ML VIAL SQ SCH ×2 (08:02→20:05)
--- NOTE | 2016-10-19 08:10 | NUR ---
RN NOTES PT STATES HE FEELS SOB, HE IS TACHYPNEIC (25-30 BPM), WILL PUT BIPAP BACK ON.
[2016-10-19] MEDS ORDERED: POTASSIUM CHLORIDE 20 MEQ POWDER PACKET PO ONE (09:30)
[2016-10-19] MEDS: POTASSIUM CL. PREMIX PERIPHER. 50 ML IV SCH ×2 (09:59→11:13)
--- NOTE | 2016-10-19 11:32 | NUR ---
RN NOTES PT LOOKS MORE COMFORTABLE, STATES HE FEELS BETTER. WILL SWITCH BACK TO NC 3L.
--- NOTE | 2016-10-19 11:46 | NUR ---
RN NOTES PT BACK ON BIPAP, HR 142, PT STATES HE FEELS SOB AND THAT IT'S DIFFICULT TO BREATH.
[2016-10-19] MEDS ORDERED: TERBUTALINE SULFATE 1 MG/ML VIAL SQ PRN (12:30)
[2016-10-19] MEDS: LEVOFLOXACIN 750 MG /D5W 150ML 750 MG in PREMIX 1 EA IV SCH (12:37)
[2016-10-19] MEDS: IV 1/2NS 1000 ML 1,000 ML IV SCH (13:38)
[2016-10-19] MEDS ORDERED: K PHOS NEUTRAL 250 MG TABLET PO ONE (15:30)
--- NOTE | 2016-10-19 19:19 | NUR ---
RN CLOSING NOTES PT IN STABLE CONDITION, ALL MD ORDERS CARRIED OUT, TOLERATING BIPAP WELL, NO DISTRESS. MCKINLEY CATH CDI. IV'S CDI, NO SIGNS OF INFECTION/INFILTRATION. VSS, AFEBRILE. CALL LIGHT WITHIN EASY REACH, SAFETY MEASURES MAINTAINED, REPORT GIVEN TO MAGGIE FOR KEI.
[2016-10-20] VITALS (31 sets, daily range): BP systolic 80–142; BP diastolic 29–86
[2016-10-20] MEDS: IPRATROPIUM NEB FS 0.5 MG/2.5 ML AMPUL.NEB NEB SCH ×8 (01:59→22:30)
[2016-10-20] MEDS: ALBUTEROL HALF STRENGTH 1.25 MG/3 ML VIAL.NEB NEB SCH ×8 (01:59→22:30)
[2016-10-20] MEDS: LORAZEPAM INJ 2 MG/ML VIAL IV PRN (04:17)
[2016-10-20] MEDS: HYDROCODONE/APAP 5/325MG 1 EACH TABLET PO PRN ×2 (04:18→19:47)
[2016-10-20 05:09] LABS: BASOPHILS # (AUTO) 0.1 /CMM (0.0-0.2); BASOPHILS % (AUTO) 0.7 % (0.0-2.0); EOSINOPHILS % (AUTO) 0.2 % (0.0-6.0); HEMATOCRIT 39 % (39-51); HEMOGLOBIN 12.8 g/dL (13.5-17.5); LYMPHOCYTES # (AUTO) 2.1 /CMM (0.8-4.8); LYMPHOCYTES % (AUTO) 12.9 % (20.0-44.0); MEAN CORPUSCULAR HEMOGLOBIN 30 PG (26.0-33.0); MEAN CORPUSCULAR HGB CONC 33 g/dl (31.0-36.0); MEAN CORPUSCULAR VOLUME 91 fL (80-96); MONOCYTES # (AUTO) 1.3 /CMM (0.1-1.30); NEUTROPHILS # (AUTO) 12.8 /CMM (1.8-8.9); NEUTROPHILS % (AUTO) 78.2 % (43.0-81.0); PLATELET COUNT (AUTO) 308 /CMM (150-450); RDW COEFFICIENT OF VARIATION 13.6 (11.5-15.0); RED BLOOD CELL COUNT(AUTO) 4.27 MIL/uL (4.5-6.0); WHITE BLOOD COUNT (AUTO) 16.4 K/uL (4.3-11.0)
[2016-10-20 05:21] LABS: CALCIUM, SERUM 8.3 mg/dL (8.5-10.1); CREATININE 0.6 mg/dL (0.6-1.3); MAGNESIUM 1.8 mg/dL (1.8-2.4); PHOSPHORUS 1.9 mg/dL (2.5-4.9); POTASSIUM 3.5 mmol/L (3.5-5.1)
--- NOTE | 2016-10-20 07:15 | NUR ---
RN INITIAL NOTES PT IN BED, A/O X2, FOLLOWS COMMANDS, HOB ELEVATED 35 DEGREES, ON BIPAP, TOLERATING WELL. ON TELE MONITOR WITH SR-ST, HR 90'S-LOW 100'S; DENIES CHEST PAIN. SKIN CDI. PT HAS MCKINLEY CATH, CDI, CLEAR YELLOW URINE DRAINING. IV ON LEFT HAND 20G AND LFA 20G WITH 1/2 NS @ 50 CC/HR, BOTH FLUSHED AND PATENT, NO S/S OF INFILTRATION/INFECTION, DRESSINGS CDI. CALL LIGHT WITHIN EASY REACH, SAFETY MEASURES MAINTAINED, WILL CONTINUE TO MONITOR AND FOLLOW MD ORDERS.
[2016-10-20] MEDS: ACETYLCYSTEINE 10% SOLN 400 MG/4 ML VIAL NEB SCH ×3 (07:26→23:49)
--- NOTE | 2016-10-20 07:50 | NUR ---
RN NOTES PT TAKEN OFF BIPAP AND ON TO NC 3L, TOLERATING WELL, NO SOB, NO SIGNS OF DISTRESS, PT STATES HE FEELS FINE, O2 SAT STEADY 96%. WILL CONTINUE TO MONITOR.
--- NOTE | 2016-10-20 08:00 | NUR ---
RT PATIENT REMOVED FROM BIPAP TO EAT BREAKFAST. PLACED ON 3L N/C WITH NO SOB AT THIS TIME. RN AWARE
[2016-10-20] MEDS: MUPIROCIN OINT 2% 22 GM TUBE SCH ×2 (09:20→20:52)
[2016-10-20] MEDS: PANTOPRAZOLE 40 MG VIAL IV SCH (09:20)
[2016-10-20] MEDS: ASPIRIN 81 MG TAB.CHEW PO SCH (09:20)
[2016-10-20] MEDS: LEVETIRACETAM (250 MG) 250 MG TABLET PO SCH ×2 (09:20→20:53)
[2016-10-20] MEDS: IV 1/2NS 1000 ML 1,000 ML IV SCH (09:21)
[2016-10-20] MEDS: SERTRALINE HCL 25 MG TABLET PO SCH (09:21)
[2016-10-20] MEDS: AMLODIPINE BESYLATE 10 MG TABLET PO SCH (09:21)
[2016-10-20] MEDS: predniSONE 20 MG TABLET PO SCH (09:21)
[2016-10-20] MEDS: HEPARIN SODIUM, PORCINE 5000 UNITS/1 ML VIAL SQ SCH ×2 (09:23→20:53)
--- NOTE | 2016-10-20 09:44 | NUR ---
RN NOTES PT STILL ON NC 3L, TOLERATING WELL, NO SOB/DISTRESS, O2 SAT STILL STEADY 96%.
[2016-10-20 10:11] LABS: ABG BASE EXCESS 8.2 mmol/L; ABG OXYGEN SATURATION 96.2 % (92.0-98.5); ABG PCO2 55.1 mmHg (35.0-45.0); ABG PH 7.414 (7.350-7.450); ABG PO2 86.6 mmHg (75.0-100.0); ABG TOTAL HEMOGLOBIN 13.1 G/dL (13.5-18.0); AaDO2 62.6 mmHg; COHb 1.1 % (0.5-1.5); MetHb 0.8 % (0.0-1.5); O2Hb 94.4 % (94.0-97.0); SITE, ABG Right Radial; VENT MODE, BG 3 L NASAL CANNULA
[2016-10-20] MEDS: LEVOFLOXACIN 750 MG /D5W 150ML 750 MG in PREMIX 1 EA IV SCH (12:25)
[2016-10-20] MEDS ORDERED: K PHOS NEUTRAL 250 MG TABLET PO ONE (14:00)
--- NOTE | 2016-10-20 14:25 | NUR ---
RN NOTES TRIED SEDATION VACATION AGAIN AND PT WAS SLOWLY BUT SURELY ABLE TO OPEN HIS EYES (DID NOT KEEP THEM OPEN FOR LONG) AND WAS ABLE TO SQUEEZE MY HAND WITH BOTH HANDS. AFTER REINSURANCE THAT HE IS MENTALLY THERE, I TURNED THE DIPRIVAN BACK ON AND DECREASED IT FROM 60 TO 50 MCG. WILL CONTINUE TO MONITOR AND INCREASE/DECREASE NEEDED. PT IN STABLE CONDITION OVERALL.
--- NOTE | 2016-10-20 19:28 | NUR ---
RN CLOSING NOTES PT IN STABLE CONDITION, ALL MD ORDERS CARRIED OUT, VSS, AFEBRILE, IV'S CDI, NO SIGNS OF INFECTION/INFILTRATION, MCKINLEY CATH DRAINING TRISHA CLEAR URINE. TOLERATING NC WELL. CALL LIGHT WITHIN EASY REACH, SAFETY MEASURES MAINTAINED, REPORT GIVEN TO NIGHT NURSE SUBHASH FOR KEI. Addendum: 10/20/16 at 1928 by MACY DOSS RN NIGHT NURSE IS KANA Riddle
--- NOTE | 2016-10-20 22:00 | NUR ---
ROENTGENOLOGY TEACHER - REC'D PT. IN RM #[id number], C/O ABD. PAIN. 8/10 PAIN SCALE. NORCO-ONE TAB/PO ADM. FOR COMFORT. PT'S VERBAL TONE WAS MEAN & AGGRESSIVE, HOWEVER PT. APOLOGIZED FOR BEING "HARSH" HE SAID. HEART MONITOR SHOWS QY=846 W/PAC'S. SBP'S ARE IN THE LOW 100'S-90'S. AFEBRILE. A COMP. BEDBATH WAS ADM. AT 22:00 DUE TO [employer] PT.CLEANED BY 2 RN ASSIST. ORAL,PEGGY & SKIN CARE ADM.
[2016-10-20] MEDS: ALBUTEROL HALF STRENGTH 1.25 MG/3 ML VIAL.NEB NEB PRN (23:49)
[2016-10-20] MEDS: IPRATROPIUM NEB FS 0.5 MG/2.5 ML AMPUL.NEB NEB PRN (23:49)
[2016-10-21] VITALS (27 sets, daily range): BP systolic 88–138; BP diastolic 34–92
[2016-10-21] MEDS: IPRATROPIUM NEB FS 0.5 MG/2.5 ML AMPUL.NEB NEB SCH ×7 (02:07→23:19)
[2016-10-21] MEDS: ALBUTEROL HALF STRENGTH 1.25 MG/3 ML VIAL.NEB NEB SCH ×7 (02:07→23:19)
[2016-10-21] MEDS: HYDROCODONE/APAP 5/325MG 1 EACH TABLET PO PRN ×3 (02:10→21:09)
[2016-10-21 05:19] LABS: EOSINOPHILS % (AUTO) 0.1 % (0.0-6.0); HEMATOCRIT 39 % (39-51); HEMOGLOBIN 12.7 g/dL (13.5-17.5); LYMPHOCYTES # (AUTO) 2.9 /CMM (0.8-4.8); LYMPHOCYTES % (AUTO) 20.5 % (20.0-44.0); MEAN CORPUSCULAR HEMOGLOBIN 30 PG (26.0-33.0); MEAN CORPUSCULAR HGB CONC 33 g/dl (31.0-36.0); MEAN CORPUSCULAR VOLUME 91 fL (80-96); MONOCYTES # (AUTO) 1.1 /CMM (0.1-1.30); MONOCYTES % (AUTO) 7.4 % (2.0-12.0); NEUTROPHILS # (AUTO) 10.3 /CMM (1.8-8.9); PLATELET COUNT (AUTO) 270 /CMM (150-450); RDW COEFFICIENT OF VARIATION 13.1 (11.5-15.0); RED BLOOD CELL COUNT(AUTO) 4.25 MIL/uL (4.5-6.0); WHITE BLOOD COUNT (AUTO) 14.3 K/uL (4.3-11.0)
[2016-10-21 05:34] LABS: CALCIUM, SERUM 8.1 mg/dL (8.5-10.1); CREATININE 0.6 mg/dL (0.6-1.3); PHOSPHORUS 2.7 mg/dL (2.5-4.9); POTASSIUM 3.3 mmol/L (3.5-5.1)
--- NOTE | 2016-10-21 06:00 | NUR ---
CROP ROLLER - PT. C/O ABD. PAIN. NORCO 5/325/ONE TAB/PO ADM. PT. FELL ASLEEP QUICKLY. 6AM BEDBATH ADM. DUE TO [employer] PT.IS MUCH CALMER & NICER TO STAFF. PT.REMAINS ON O2/4L/NC W/O2 SATS >92%. 2-PIV'S ARE PATENT TO FLUSH. NO EDEMA. ALL PULSES PALPABLE X 4 EXT. MCKINLEY CATH TO GRAVITY W/ 1350 CC OUT FOR SEAT MENDER. CONT.POC.
[2016-10-21] MEDS: IV 1/2NS 1000 ML 1,000 ML IV SCH (06:25)
[2016-10-21] MEDS: ACETYLCYSTEINE 10% SOLN 400 MG/4 ML VIAL NEB SCH ×3 (07:41→23:19)
--- NOTE | 2016-10-21 08:00 | NUR ---
LIME PLANT OPERATOR NOTE: RECEIVED PATIENT ALERT AND ORIENTED X2, FOLLOWS COMMANDS. ON 4L 02 VIA NC NO DISTRESS NOTED. SR ON TELE MONITOR WITH OCCASIONAL PAC'S. PATIENT DENIES PAIN AT THIS TIME. IV ON LEFT HAND 20G AND LFA 20G WITH 1/2 NS @ 50 CC/HR, BOTH FLUSHED AND PATENT, NO S/S OF INFILTRATION/INFECTION, DRESSINGS CDI. PT HAS MCKINLEY CATH WITH CLEAR YELLOW URINE DRAINING TO GRAVITY. PATIENT KEPT CLEAN AND DRY, TURNED AND REPOSITIONED. CALL LIGHT WITHIN EASY REACH, SAFETY MEASURES MAINTAINED, WILL CONTINUE TO MONITOR.
[2016-10-21] MEDS: predniSONE 20 MG TABLET PO SCH (08:26)
[2016-10-21] MEDS: MUPIROCIN OINT 2% 22 GM TUBE SCH ×2 (08:26→21:04)
[2016-10-21] MEDS: LEVETIRACETAM (250 MG) 250 MG TABLET PO SCH ×2 (08:26→21:04)
[2016-10-21] MEDS: SERTRALINE HCL 25 MG TABLET PO SCH (08:26)
[2016-10-21] MEDS: ASPIRIN 81 MG TAB.CHEW PO SCH (08:26)
[2016-10-21] MEDS: PANTOPRAZOLE 40 MG VIAL IV SCH (08:26)
[2016-10-21] MEDS: AMLODIPINE BESYLATE 10 MG TABLET PO SCH (08:27)
[2016-10-21] MEDS ORDERED: POTASSIUM CHLORIDE 20 MEQ TAB.PRT.SR PO ONE (11:00)
--- NOTE | 2016-10-21 11:00 | NUR ---
ASSISTANT TECHNICIAN NOTE: DR. STEELE AT BEDSIDE, PATIENT IN STABLE CONDITION VSS. RECEIVED ORDER FOR 2GRAMS OF IV MAGNESIUM, AND 80MEQ OF KDUR. ORDER VERIFIED AND WILL CARRY OUT.
[2016-10-21] MEDS: Magnesium 1GM/D5W 100ML PREMIX 100 ML IV SCH ×2 (11:10→12:37)
[2016-10-21] MEDS: LEVOFLOXACIN 750 MG /D5W 150ML 750 MG in PREMIX 1 EA IV SCH (12:37)
--- NOTE | 2016-10-21 18:59 | NUR ---
CENTRAL STERILE SUPPLY TECHNICIAN NOTE: PATIENT RESTING COMFORTABLY IN BED. ALERT AND ORIENTED X3, ON 4L 02 VIA NC. NO DISTRESS NOTED THROUGHOUT SHIFT. SR- ST ON TELE MONITOR. PIV'S PATENT AND INTACT RUNNIGN 1./NS AT 50ML/HR. KDUR AND 2GRAMS OF MAG ADMINISTERED. PATIENT TOLERATED MEALS WELL. BED BATH GIVEN, TURNED AND REPOSITIONED AND EXTREMITIES OFFLOADED. SKIN CARE RENDERED. SKIN INTACT. SAFETY MAINTAINED. PER DR. MASCORRO'S ORDER PATIENT TO BE TRANSFERRED TO TELE WHEN ROOM IS AVAILABLE. WILL ENDORSE FOR CONTINUITY OF CARE.
[2016-10-21] MEDS: HEPARIN SODIUM, PORCINE 5000 UNITS/1 ML VIAL SQ SCH (21:13)
[2016-10-21] MEDS: LORAZEPAM INJ 2 MG/ML VIAL IV PRN (21:21)
[2016-10-22] VITALS (11 sets, daily range): BP systolic 99–155; BP diastolic 51–82
--- NOTE | 2016-10-22 01:00 | NUR ---
ORNAMENT SETTER - REC'D PT. IN A VERY BAD MOOD, RN ATTEMPTED TO GIVE PT. HIS MEDS, EVEN THE "PAIN MED" HE REQUESTED. PT. THREW A WHOLE PITCHER OF WATER AT RN. HE STATED, "I JUST WANT THE F^*#EN RESP. THERAPIST. JUN CHARLES CAME TO PT'S BEDSIDE. PT.IS SATTING 100% ON O2/3L/NC, BUT HE HIMSELF REQUESTED THE BIPAP. SO JUN RT PLACED BIPAP ON PT. AT 21:15 PM. SETTINGS WERE I:E=20:5, RATE OF 12 & 40%. PT. ENDED UP TAKING THE REST OF HIS MEDS AROUND 22:15. NORCO 3/325 ONE TAB PO WAS ADM. PT.C/O OF ABD PAIN. 8?10 PAIN SCALE,. ATIVAN ONE MG SLOW IVP WAS ALSO ADM.AT 21:21 FOR ANXIETY. AFEBRILE. HEART MONITOR SHOWS SR/ST, SBP'S ARE LABILE=90'S-150'S. PIV'S X 2 ARE PATENT TO FLUSH. 0.45%NS IS INFUSING AT 50CC/HR VIA GARIBAY PUMP. ALL PULSES PALPABLE X 4 EXT. MCKINLEY CATH TO GRAVITY. CONT. POC.
[2016-10-22] MEDS: IPRATROPIUM NEB FS 0.5 MG/2.5 ML AMPUL.NEB NEB SCH ×6 (01:53→15:56)
[2016-10-22] MEDS: ALBUTEROL HALF STRENGTH 1.25 MG/3 ML VIAL.NEB NEB SCH ×6 (01:54→15:56)
--- NOTE | 2016-10-22 05:03 | NUR ---
TELEMEDICINE PHYSICIAN - PT.IS TELE STATUS. ROOM READY. PT.IS TO GO TO BED #329. TELEPHONE REPORT WAS PHONED AT 05:00 TO ANABELLA Dobson BELONGINGS,CHART & MEDS ARE W/PT. VSS. MCKINLEY PUT OUT 825CC/THIS SHIFT. AM LABS DRAWN & SENT. TRANSFER DONE IN COMPUTER. CONT. POC.
[2016-10-22 05:15] LABS: EOSINOPHILS # (AUTO) 0.1 /CMM (0.0-0.7); EOSINOPHILS % (AUTO) 0.4 % (0.0-6.0); HEMATOCRIT 41 % (39-51); HEMOGLOBIN 13.5 g/dL (13.5-17.5); LYMPHOCYTES # (AUTO) 1.9 /CMM (0.8-4.8); MEAN CORPUSCULAR HEMOGLOBIN 30 PG (26.0-33.0); MEAN CORPUSCULAR HGB CONC 33 g/dl (31.0-36.0); MEAN CORPUSCULAR VOLUME 92 fL (80-96); MONOCYTES % (AUTO) 6.4 % (2.0-12.0); NEUTROPHILS # (AUTO) 12.6 /CMM (1.8-8.9); NEUTROPHILS % (AUTO) 81.2 % (43.0-81.0); PLATELET COUNT (AUTO) 296 /CMM (150-450); RDW COEFFICIENT OF VARIATION 13.7 (11.5-15.0); RED BLOOD CELL COUNT(AUTO) 4.48 MIL/uL (4.5-6.0); WHITE BLOOD COUNT (AUTO) 15.5 K/uL (4.3-11.0)
[2016-10-22 05:17] LABS: CALCIUM, SERUM 8.3 mg/dL (8.5-10.1); CREATININE 0.7 mg/dL (0.6-1.3); MAGNESIUM 2.2 mg/dL (1.8-2.4); PHOSPHORUS 1.8 mg/dL (2.5-4.9)
[2016-10-22 05:28] LABS: INR 1.01 (0.87-1.13); PROTHROMBIN TIME 10.8 SECS (9.5-12.7)
[2016-10-22] MEDS: IV 1/2NS 1000 ML 1,000 ML IV SCH (05:33)
[2016-10-22] MEDS: IPRATROPIUM NEB FS 0.5 MG/2.5 ML AMPUL.NEB NEB PRN (05:34)
[2016-10-22] MEDS: ALBUTEROL HALF STRENGTH 1.25 MG/3 ML VIAL.NEB NEB PRN (05:34)
--- NOTE | 2016-10-22 05:45 | NUR ---
RN NOTE; RECEIVED PT FROM ICU IN STABLE CONDITION. ALERT, OX4. BREATHING EVENLY. NO SOB. NO DISTRESS. RT MARISA ON THE FLOOR MADE AWARE . PT WAS SEEN BY THE RT AND BREATHING TX WAS GIVEN . WAS PLACED ON A HEART MONITOR, VS: WNL. REMAINED ON O2 AT 4LPM VIA NC ALFONSO WELL. BODY CHECK DONE. F/C IN PLACE DRAINING CLEAR YELLOW URINE. PT DENIED ANY PAIN OR DISCOMFORT AT THIS TIME. CLEANED AND DRIED. CALL LIGHT WITHIN REACH. WILL CONT TO MONITOR .
--- NOTE | 2016-10-22 06:49 | NUR ---
RN NOTE; PT IN BED AWAKE AND ALERT. BREATHING EVENLY. NO SOB. NO DISTRESS. NO C/O PAIN OR DISCOMFORT . REMAINED STABLE . NEEDS ATTENDED .CALL LIGHT WITHIN REACH. WILL CONT TO MONITOR AND WILL ENDORSE TO AM SHIFT FOR KEI.
--- NOTE | 2016-10-22 07:10 | NUR ---
MS RN NOTE: RECEIVED PATIENT WHILE RESTING IN BED, A/O X 3. PATIENT BREATHING EVEN AND UNLABORED ON 4L O2 VIA NC. NO SOB, NO DISTRESS. PATIENT REMAINS COMFORTABLE, ALL NEEDS ATTENDED TO, SAFETY MEASURES IN PLACE, WILL CONTINUE TO MONITOR.
[2016-10-22] MEDS: ACETYLCYSTEINE 10% SOLN 400 MG/4 ML VIAL NEB SCH ×2 (07:26→15:56)
--- NOTE | 2016-10-22 08:20 | NUR ---
MOBILE SALES EXPERT NOTE: PATIENT ASSISTED TO BATHROOM WITH FWW. AMBULATORY BUT WEAK AND UNSTEADY. ASSISTED BACK TO BED WELL. MORNING MEDICATIONS ADMINISTERED, WILL CONTINUE TO MONITOR.
[2016-10-22] MEDS: predniSONE 20 MG TABLET PO SCH (08:40)
[2016-10-22] MEDS: LEVETIRACETAM (250 MG) 250 MG TABLET PO SCH (08:40)
[2016-10-22] MEDS: ASPIRIN 81 MG TAB.CHEW PO SCH (08:40)
[2016-10-22] MEDS: PANTOPRAZOLE 40 MG VIAL IV SCH (08:40)
[2016-10-22] MEDS: SERTRALINE HCL 25 MG TABLET PO SCH (08:40)
[2016-10-22] MEDS: MUPIROCIN OINT 2% 22 GM TUBE SCH (08:41)
[2016-10-22] MEDS: AMLODIPINE BESYLATE 10 MG TABLET PO SCH (08:42)
[2016-10-22] MEDS: HEPARIN SODIUM, PORCINE 5000 UNITS/1 ML VIAL SQ SCH (08:43)
[2016-10-22] MEDS ORDERED: Sodium Phosphate 15 MMOL in IV D5W 250 ML IV ONE ×4 (11:30)
[2016-10-22] MEDS ORDERED: PRED20TA PO ×2 (11:38)
[2016-10-22] MEDS ORDERED: PRED10TA PO (11:38)
[2016-10-22] MEDS ORDERED: LEVO750T21 PO (11:38)
[2016-10-22] MEDS ORDERED: MUPI22OI7 (11:38)
[2016-10-22] MEDS ORDERED: SECONDARY IV SET 1 EA INFUS.SET MC ONE (13:01)
[2016-10-22] MEDS: LEVOFLOXACIN 750 MG /D5W 150ML 750 MG in PREMIX 1 EA IV SCH (13:05)
[2016-10-22] MEDS ORDERED: IV SET PRIMARY PUMP SET 1 EA INFUS.SET MC ONE (13:29)
--- NOTE | 2016-10-22 14:30 | NUR ---
MS RN NOTE: PATIENT PARTICIPATED WITH PT, TOLERATED FAIRLY. WILL CONTINUE TO MONITOR.
--- NOTE | 2016-10-22 16:30 | NUR ---
MS RN NOTE: CLARIFIED WITH DR. MASCORRO, PATIENT IS CLEAR FOR DISCHARGE TO SNF, WILL PROCEED WITH DISCHARGE PROCESS.
--- NOTE | 2016-10-22 17:00 | NUR ---
MS RN NOTE: MCKINLEY CATH DISCONTINUED PER MD. BALLOON DEFLATED, MCKINLEY CATH TAKEN OUT WITH NO COMPLICATIONS, WILL CONTINUE TO MONITOR.
--- NOTE | 2016-10-22 17:30 | NUR ---
MS RN NOTE: REPORT GIVEN TO SAMI WOLF AT [facility] FOR DISCHARGE. WILL PROCEED WITH DISCHARGE PROCESS, ANTICIPATING EMT PRECISION AIRCRAFT SYSTEMS ASSEMBLER AROUND 1800
--- NOTE | 2016-10-22 18:47 | NUR ---
MS RN NOTE: PATIENTS DISCHARGE ORDERED BY DR. STEELE. PATIENT REMAINS STABLE. EXIT CARE COMPLETED, ALL FORMS SIGNED AND COPIES PLACED IN CHART. PATIENT'S BELONGINGS IN PLACE. DISCHARGE TEACHING PROVIDED TO PATIENT REGARDING NEW MEDICATIONS. PATIENT'S IV'S ON LEFT FOREARM AND LEFT HAND REMOVED AND SITES SECURED. TELE MONITOR REMOVED AND RETURNED TO STATION. PATIENT TO BE PICKED UP BY EMT IN ABOUT 10 MINUTES. ALL NEEDS MET. WILL CONTINUE TO MONITOR UNTIL EMT ARRIVE.
--- NOTE | 2016-10-22 19:11 | NUR ---
MS RN NOTE: EMT ARRIVED TO BEDSIDE. REPORT GIVEN TO EMT. ALL NEEDS MET. PATIENT DISCHARGED TO [facility] VIA STRETCHER IN STABLE CONDITION.
== END 2016-10-22 19:50 | DRG 140 ==
LOC: ER 08:27 → ICU 10:02 → MED 10-22 05:20 → TELE 10-22 06:54
PROVIDERS: ADMIT Contractor; ATTEND Contractor
PROC: 5A09457 Assistance with Respiratory Ventilation, 24-96 Consecutive Hours, Continuous Positive Airway Pressure (ICD-10-PCS; principal; 2016-10-13)
PROC: 0BH17EZ Insertion of Endotracheal Airway into Trachea, Via Natural or Artificial Opening (ICD-10-PCS; 2016-10-14)
PROC: 5A1945Z Respiratory Ventilation, 24-96 Consecutive Hours (ICD-10-PCS; 2016-10-14)
DX: J44.0 Chronic obstructive pulmonary disease with (acute) lower respiratory infection (principal); J96.22 Acute and chronic respiratory failure with hypercapnia; E87.2 Acidosis; J44.1 Chronic obstructive pulmonary disease with (acute) exacerbation; J20.9 Acute bronchitis, unspecified; D64.9 Anemia, unspecified; I10 Essential (primary) hypertension; K21.9 Gastro-esophageal reflux disease without esophagitis; N40.0 Benign prostatic hyperplasia without lower urinary tract symptoms; G40.909 Epilepsy, unspecified, not intractable, without status epilepticus; F32.9 Major depressive disorder, single episode, unspecified; T38.0X5A Adverse effect of glucocorticoids and synthetic analogues, initial encounter; Y92.009 Unspecified place in unspecified non-institutional (private) residence as the place of occurrence of the external cause; D72.829 Elevated white blood cell count, unspecified; E87.6 Hypokalemia; F17.200 Nicotine dependence, unspecified, uncomplicated; D63.8 Anemia in other chronic diseases classified elsewhere
CPT/HCPCS: 31720; 36415; 36600; 71010-TC; 80048-TC; 80061-TC; 80076-TC; 82803-TC; 83605-TC; 83735-TC; 83880; 84100-TC; 84443-TC; 84484-TC; 85025-TC; 85730-TC; 87040-TC; 87070-TC; 87081-TC; 93307-TC; 94003-TC; 94640-TC; 94760-TC; 94762-TC; 94799-TC; 97001-TC; A4216; A4606; A9563; C9113; J1644; J1956; J2060; J2543; J2930; J3105; J3475; J3480; J3490; J7030; J7040; J7060; Z7610

== ENCOUNTER 2017-01-19 17:15 | Inpatient (IN) | payer MEDICAID ==
[2017-01-19] VITALS (9 sets, daily range): BP systolic 107–129; BP diastolic 72–90
[~2017-01-19] VITALS: Ht 185.4 cm; Wt 60.8 kg
[~2017-01-19 17:15] MED LIST changes: +ACET-868 PO; +ALBU2.5V13 INH; -ALBUTEROL FS 2.5 MG/3 ML VIAL.NEB ONE; +AMLO10TA2 PO; +ASPI81TA2 PO; +FLUT10.62 INH; +FLUT1DIS INH; +HYDR-552 PO; +HYDR12.55 PO; +LEVE1000 PO; +LEVO750T21 PO; +MAGN400O6 PO; +MUPI22OI7; +NA P133E RC; +PANT40TA2 PO; +PRED10TA PO; +PRED20TA PO; +SERT25TA5 PO; +VIT1CAPS32 PO
[2017-01-19] MEDS ORDERED: ALBUTEROL FS 2.5 MG/3 ML VIAL.NEB CONTNEB ONE (17:30)
[2017-01-19] MEDS ORDERED: IPRATROPIUM NEB FS 0.5 MG/2.5 ML AMPUL.NEB NEB ONE (17:30)
[2017-01-19] MEDS ORDERED: ASPIRIN 300 MG/SUPP.RECT RC ONE ×2 (17:30→17:35)
[2017-01-19] MEDS ORDERED: IV NS 0.9% 1,000 ML BAG IV ONE ×2 (17:30→18:30)
[2017-01-19] MEDS ORDERED: ACETAMINOPHEN 650 MG/SUPP.RECT RC ONE ×2 (17:30→17:33)
[2017-01-19] MEDS ORDERED: ALBUTEROL FS 2.5 MG/3 ML VIAL.NEB ONE (17:36)
[2017-01-19] MEDS ORDERED: IPRATROPIUM NEB FS 0.5 MG/2.5 ML AMPUL.NEB ONE (17:37)
[2017-01-19 17:52] LABS: INR 1.09 (0.87-1.13); PROTHROMBIN TIME 11.4 SECS (9.5-12.7)
[2017-01-19 17:54] LABS: HEMATOCRIT 32 % (39-51); HEMOGLOBIN 10.7 g/dL (13.5-17.5); MEAN CORPUSCULAR HEMOGLOBIN 27 PG (26.0-33.0); MEAN CORPUSCULAR HGB CONC 33 g/dl (31.0-36.0); MEAN CORPUSCULAR VOLUME 82 fL (80-96); PLATELET COUNT (AUTO) 333 /CMM (150-450); RDW COEFFICIENT OF VARIATION 18.8 (11.5-15.0); RED BLOOD CELL COUNT(AUTO) 3.96 MIL/uL (4.5-6.0); WHITE BLOOD COUNT (AUTO) 6.6 K/uL (4.3-11.0)
[2017-01-19] MEDS ORDERED: PIPERACILLIN /TAZOBACTAM 3.375 G in IV D5W 50 ML IV ONE (18:00)
[2017-01-19] MEDS ORDERED: VANCOMYCIN 1 GM in IV D5W 250 ML IV ONE (18:00)
[2017-01-19 18:04] LABS: ALANINE AMINOTRANSFERASE 12 U/L (12-78); ALBUMIN 2.5 g/dL (3.4-5.0); ALKALINE PHOSPHATASE 48 U/L (46-116); ASPARTATE AMINOTRANSFERASE 16 U/L (15-37); BILIRUBIN,DIRECT 0.4 mg/dL (0.0-0.2); BILIRUBIN,TOTAL 0.7 mg/dL (0.2-1.0); CALCIUM, SERUM 8.2 mg/dL (8.5-10.1); CARBON DIOXIDE 31 mmol/L (21-32); CHLORIDE 98 mmol/L (98-107); CREATININE 1.5 mg/dL (0.6-1.3); GLUCOSE 107 mg/dL (74-106); SODIUM SERUM 138 mmol/L (136-145); TOTAL PROTEIN, SERUM 7.5 g/dL (6.4-8.2); UREA NITROGEN, BLOOD 41 mg/dL (7-18)
[2017-01-19 18:06] LABS: TROPONIN I < 0.017 ng/mL (0.00-0.056)
[2017-01-19 18:09] LABS: POTASSIUM 2.7 mmol/L (3.5-5.1)
[2017-01-19 18:14] LABS: APPEARANCE,URINE Clear (CLEAR); BILIRUBIN,URINE Negative (NEGATIVE); BLOOD, URINE Trace-intact Ery/uL (NEGATIVE); COLOR,URINE Yellow (YELLOW); KETONES,URINE Negative (NEGATIVE); LEUKOCYTE ESTERASE ,URINE Negative (NEGATIVE); NITRITE, URINE Negative (NEGATIVE); PROTEIN,URINE 30 mg/dl (NEGATIVE); UGLUCOSE Negative (NEGATIVE); UROBILINOGEN,URINE 0.2 EU/dL (0.2)
[2017-01-19 18:16] LABS: ABG BASE EXCESS 3.4 mmol/L; ABG OXYGEN SATURATION 95.9 % (92.0-98.5); ABG PCO2 49.9 mmHg (35.0-45.0); ABG PH 7.384 (7.350-7.450); ABG PO2 89.1 mmHg (75.0-100.0); AaDO2 211.3 mmHg; COHb 0.4 % (0.5-1.5); MetHb 0.3 % (0.0-1.5); O2Hb 95.2 % (94.0-97.0); SITE, ABG Right Radial; VENT MODE, BG 8lpm mask
[2017-01-19] MEDS ORDERED: POTASSIUM CL. PREMIX PERIPHER. 100 ML ONE (18:33)
[2017-01-19 18:38] LABS: BACTERIA,URINE Few /HPF (None Seen); SQUAMOUS EPITHELIAL CELL,UR Few /HPF (None Seen); WBC,URINE 0-2 /HPF (0-3)
[2017-01-19 18:39] LABS: MUCUS,URINE Few /LPF (None Seen); URINE AMORPHOUS URATE Moderate /HPF (None Seen)
[2017-01-19 18:43] LABS: BAND % (MANUAL) 3 % (0.0-5.0); LYMPHOCYTES % (MANUAL) 13 % (16-48); MONOCYTES % (MANUAL) 6 % (0-11.0); NEUTROPHILS % (MANUAL) 78 (42-76)
[2017-01-19] MEDS: POTASSIUM CL. PREMIX PERIPHER. 50 ML IV SCH ×4 (18:48→22:40)
[2017-01-19] MEDS ORDERED: ONDANSETRON HCL/PF 4 MG/2 ML VIAL IVP PRN (19:30)
[2017-01-19] MEDS: PANTOPRAZOLE 40 MG TABLET.DR PO SCH (19:30)
[2017-01-19] MEDS ORDERED: MAG HYDROX/AL HYDROX/SIMETH 30 ML UDC PO PRN (19:30)
[2017-01-19] MEDS ORDERED: MAGNESIUM HYDROXIDE 30 ML UDC PO PRN (19:30)
[2017-01-19] MEDS ORDERED: ZOLPIDEM TARTRATE 5 MG TABLET PO PRN (19:30)
[2017-01-19] MEDS ORDERED: Z GUARD REMEDY 2 OZ OINT TP PRN (19:30)
[2017-01-19] MEDS ORDERED: MIDAZOLAM HCL 2 MG/2ML VIAL ONE (19:40)
[2017-01-19] MEDS ORDERED: FEE PK DOSING 1 MIN EA MC ONE (20:00)
[2017-01-19] MEDS ORDERED: CIPROFLOXACIN IV RTU 0 ML IV ONE (20:49)
[2017-01-19] MEDS ORDERED: ACETYLCYSTEINE 20% ORAL SOLN 6,000 MG/30 ML VIAL PO SCH (21:00)
[2017-01-19] MEDS ORDERED: IOHEXOL-300 100 ML VIAL IV ONE (21:00)
[2017-01-19] MEDS ORDERED: PIPERACILLIN /TAZOBACTAM 4.5 G in IV D5W 50 ML IV SCH (21:00)
[2017-01-19] MEDS ORDERED: IV NS 0.9% 250 ML IV ONE (21:00)
[2017-01-19] MEDS: IV NS 0.9% 1,000 ML IV PRN (21:30)
[2017-01-19] MEDS: ENOXAPARIN SODIUM 40 MG/0.4 ML DISP.SYRIN SQ SCH (21:35)
[2017-01-20] VITALS (54 sets, daily range): BP systolic 90–129; BP diastolic 43–79
[2017-01-20] MEDS: POTASSIUM CL. PREMIX PERIPHER. 50 ML IV SCH ×4 (00:10→11:56)
[2017-01-20] MEDS: PIPERACILLIN /TAZOBACTAM 3.375 G in IV D5W 50 ML IV SCH ×5 (00:18→23:22)
[2017-01-20] MEDS ORDERED: POTASSIUM CL. PREMIX PERIPHER. 50 ML ONE (01:14)
[2017-01-20 04:46] LABS: HEMATOCRIT 32 % (39-51); HEMOGLOBIN 10.7 g/dL (13.5-17.5); MEAN CORPUSCULAR HEMOGLOBIN 28 PG (26.0-33.0); MEAN CORPUSCULAR HGB CONC 33 g/dl (31.0-36.0); MEAN CORPUSCULAR VOLUME 84 fL (80-96); PLATELET COUNT (AUTO) 272 /CMM (150-450); RDW COEFFICIENT OF VARIATION 18.7 (11.5-15.0); RED BLOOD CELL COUNT(AUTO) 3.83 MIL/uL (4.5-6.0); WHITE BLOOD COUNT (AUTO) 8.1 K/uL (4.3-11.0)
[2017-01-20 05:06] LABS: ALBUMIN 2.1 g/dL (3.4-5.0); BILIRUBIN,TOTAL 0.7 mg/dL (0.2-1.0); CALCIUM, SERUM 8.1 mg/dL (8.5-10.1); CREATININE 1.2 mg/dL (0.6-1.3); MAGNESIUM 1.3 mg/dL (1.8-2.4); PHOSPHORUS 2.8 mg/dL (2.5-4.9); POTASSIUM 3.3 mmol/L (3.5-5.1); TOTAL PROTEIN, SERUM 7.1 g/dL (6.4-8.2)
[2017-01-20] MEDS ORDERED: VANCOMYCIN 0.75 GM in IV D5W 250 ML IV SCH (06:00)
[2017-01-20] MEDS: PANTOPRAZOLE 40 MG TABLET.DR PO SCH (07:30)
[2017-01-20] MEDS ORDERED: BENA40TA2 PO (08:14)
[2017-01-20] MEDS ORDERED: GLYC1SUP77 RC (08:14)
[2017-01-20] MEDS ORDERED: HYDR-3658 PO (08:14)
[2017-01-20] MEDS ORDERED: TAMS-12 PO (08:14)
[2017-01-20] MEDS ORDERED: BACL10TA PO (08:14)
[2017-01-20] MEDS ORDERED: LOPE2CAP40 PO (08:14)
[2017-01-20] MEDS ORDERED: ALPR0.5T PO (08:16)
[2017-01-20] MEDS ORDERED: DIPH50CA37 PO (08:50)
[2017-01-20] MEDS ORDERED: BISA10SU8 RC (08:50)
[2017-01-20 09:31] LABS: ABG BASE EXCESS 2.3 mmol/L; ABG OXYGEN SATURATION 96.3 % (92.0-98.5); ABG PCO2 52.6 mmHg (35.0-45.0); ABG PH 7.351 (7.350-7.450); ABG PO2 95.3 mmHg (75.0-100.0); COHb 0.3 % (0.5-1.5); MetHb 0.9 % (0.0-1.5); O2Hb 95.1 % (94.0-97.0); SITE, ABG Right Radial; VENT MODE, BG BIPAP 15/5
[2017-01-20] MEDS: LEVETIRACETAM (500MG) 1,000 MG in IV NS 0.9% 100 ML IV SCH ×2 (10:06→20:32)
[2017-01-20] MEDS: IPRATROPIUM NEB FS 0.5 MG/2.5 ML AMPUL.NEB NEB SCH ×3 (11:11→20:00)
[2017-01-20] MEDS: ALBUTEROL HALF STRENGTH 1.25 MG/3 ML VIAL.NEB NEB SCH ×3 (11:11→20:00)
[2017-01-20] MEDS: Magnesium 1GM/D5W 100ML PREMIX 100 ML IV SCH ×4 (11:23→14:15)
[2017-01-20] MEDS: ACETAMINOPHEN 325 MG TABLET PO PRN ×2 (16:33→23:34)
[2017-01-20] MEDS: VANCOMYCIN 1 GM in IV D5W 250 ML IV SCH (17:38)
[2017-01-20] MEDS: IV NS 0.9% 1,000 ML IV PRN (20:31)
[2017-01-20] MEDS: ENOXAPARIN SODIUM 40 MG/0.4 ML DISP.SYRIN SQ SCH (20:31)
[2017-01-20] MEDS: MUPIROCIN OINT 2% 22 GM TUBE SCH (20:34)
[2017-01-21] VITALS (25 sets, daily range): BP systolic 108–139; BP diastolic 58–92
[2017-01-21] MEDS: IPRATROPIUM NEB FS 0.5 MG/2.5 ML AMPUL.NEB NEB SCH ×5 (02:27→23:43)
[2017-01-21] MEDS: ALBUTEROL HALF STRENGTH 1.25 MG/3 ML VIAL.NEB NEB SCH ×5 (02:27→23:43)
[2017-01-21 04:58] LABS: HEMATOCRIT 29 % (39-51); HEMOGLOBIN 9.5 g/dL (13.5-17.5); MEAN CORPUSCULAR HEMOGLOBIN 28 PG (26.0-33.0); MEAN CORPUSCULAR HGB CONC 33 g/dl (31.0-36.0); MEAN CORPUSCULAR VOLUME 83 fL (80-96); PLATELET COUNT (AUTO) 259 /CMM (150-450); RDW COEFFICIENT OF VARIATION 19.3 (11.5-15.0); RED BLOOD CELL COUNT(AUTO) 3.44 MIL/uL (4.5-6.0); WHITE BLOOD COUNT (AUTO) 9.6 K/uL (4.3-11.0)
[2017-01-21 05:16] LABS: CALCIUM, SERUM 8.2 mg/dL (8.5-10.1); MAGNESIUM 1.9 mg/dL (1.8-2.4); PHOSPHORUS 2.4 mg/dL (2.5-4.9)
[2017-01-21] MEDS: PIPERACILLIN /TAZOBACTAM 3.375 G in IV D5W 50 ML IV SCH ×3 (05:19→17:47)
[2017-01-21 05:34] LABS: POTASSIUM 2.7 mmol/L (3.5-5.1)
[2017-01-21] MEDS: VANCOMYCIN 1 GM in IV D5W 250 ML IV SCH ×2 (05:53→18:46)
[2017-01-21] MEDS ORDERED: POTASSIUM CHLORIDE 10 MEQ TABLET.SA ONE (06:10)
[2017-01-21] MEDS: ACETAMINOPHEN 325 MG TABLET PO PRN ×3 (06:14→18:16)
[2017-01-21] MEDS ORDERED: POTASSIUM CHLORIDE 10 MEQ TABLET.SA PO ONE ×2 (06:30→07:30)
[2017-01-21] MEDS ORDERED: CHLORHEXIDINE GLUCONATE 4% 118 ML BOTTLE TP SCH ×2 (08:00→09:00)
[2017-01-21] MEDS: PANTOPRAZOLE 40 MG TABLET.DR PO SCH (08:43)
[2017-01-21] MEDS: LEVETIRACETAM (500MG) 1,000 MG in IV NS 0.9% 100 ML IV SCH ×2 (08:43→21:47)
[2017-01-21] MEDS: MUPIROCIN OINT 2% 22 GM TUBE SCH ×2 (08:44→21:57)
[2017-01-21] MEDS: CHLORHEXIDINE GLUCONATE 4% 118 ML BOTTLE TP SCH (09:12)
[2017-01-21] MEDS ORDERED: FLUTICASONE/SALMETEROL DISKUS IH SCH (12:00)
[2017-01-21] MEDS ORDERED: Medication Not On Formulary EA (Levetiracetam (Keppra) 1,000 MG) PO SCH (12:00)
[2017-01-21] MEDS ORDERED: ALPRAZOLAM 0.5 MG TABLET PO PRN (12:00)
[2017-01-21] MEDS ORDERED: BISACODYL SUPP (10 MG) 10 MG/SUPP.RECT SUPP.RECT RC PRN (12:00)
[2017-01-21] MEDS: BACLOFEN (10 MG) 10 MG TABLET PO SCH ×2 (13:04→17:48)
[2017-01-21] MEDS: SERTRALINE HCL 25 MG TABLET PO SCH (13:04)
[2017-01-21] MEDS: AMLODIPINE BESYLATE 10 MG TABLET PO SCH (13:04)
[2017-01-21] MEDS: FLUTICASONE/VILANTEROL 1 EACH BLST.W.DEV IH SCH (13:30)
[2017-01-21] MEDS: IV NS 0.9% 1,000 ML IV PRN (15:04)
[2017-01-21] MEDS ORDERED: NEUTRA PHOS 1 POWD.PACKET NG ONE (15:30)
[2017-01-21] MEDS: CEFEPIME 1 GM in IV D5W 50 ML IV SCH (21:00)
[2017-01-21] MEDS: TAMSULOSIN 0.4 MG CAP.SR.24H PO SCH (21:46)
[2017-01-21] MEDS: HYDROCODONE/APAP 5/325MG 1 EACH TABLET PO PRN (21:47)
[2017-01-21] MEDS: ENOXAPARIN SODIUM 40 MG/0.4 ML DISP.SYRIN SQ SCH (21:48)
[2017-01-21] MEDS: FLUTICASONE 110MCG 1 EA INHALER IH SCH (21:49)
[2017-01-22] VITALS (7 sets, daily range): BP systolic 97–146; BP diastolic 61–84
[2017-01-22] MEDS ORDERED: ALBUTEROL HALF STRENGTH 1.25 MG/3 ML VIAL.NEB ONE (04:23)
[2017-01-22] MEDS: IPRATROPIUM NEB FS 0.5 MG/2.5 ML AMPUL.NEB NEB SCH ×6 (04:24→23:30)
[2017-01-22] MEDS: ALBUTEROL HALF STRENGTH 1.25 MG/3 ML VIAL.NEB NEB SCH ×6 (04:24→23:30)
[2017-01-22] MEDS: VANCOMYCIN 1 GM in IV D5W 250 ML IV SCH ×2 (06:12→17:28)
[2017-01-22 06:32] LABS: EOSINOPHILS # (AUTO) 0.2 /CMM (0.0-0.7); EOSINOPHILS % (AUTO) 2.1 % (0.0-6.0); HEMATOCRIT 30 % (39-51); HEMOGLOBIN 9.9 g/dL (13.5-17.5); LYMPHOCYTES # (AUTO) 1.6 /CMM (0.8-4.8); LYMPHOCYTES % (AUTO) 14.1 % (20.0-44.0); MEAN CORPUSCULAR HEMOGLOBIN 27 PG (26.0-33.0); MEAN CORPUSCULAR HGB CONC 33 g/dl (31.0-36.0); MEAN CORPUSCULAR VOLUME 83 fL (80-96); MONOCYTES % (AUTO) 8.9 % (2.0-12.0); NEUTROPHILS # (AUTO) 8.6 /CMM (1.8-8.9); NEUTROPHILS % (AUTO) 74.9 % (43.0-81.0); PLATELET COUNT (AUTO) 306 /CMM (150-450); RDW COEFFICIENT OF VARIATION 18.9 (11.5-15.0); RED BLOOD CELL COUNT(AUTO) 3.63 MIL/uL (4.5-6.0); WHITE BLOOD COUNT (AUTO) 11.4 K/uL (4.3-11.0)
[2017-01-22 07:04] LABS: CALCIUM, SERUM 8.3 mg/dL (8.5-10.1); CREATININE 0.8 mg/dL (0.6-1.3); PHOSPHORUS 2.1 mg/dL (2.5-4.9); POTASSIUM 3.3 mmol/L (3.5-5.1)
[2017-01-22 07:07] LABS: MAGNESIUM 1.2 mg/dL (1.8-2.4)
[2017-01-22] MEDS: AMLODIPINE BESYLATE 10 MG TABLET PO SCH (09:36)
[2017-01-22] MEDS: BACLOFEN (10 MG) 10 MG TABLET PO SCH ×3 (09:36→16:28)
[2017-01-22] MEDS: SERTRALINE HCL 25 MG TABLET PO SCH (09:36)
[2017-01-22] MEDS: PANTOPRAZOLE 40 MG TABLET.DR PO SCH (09:36)
[2017-01-22] MEDS: LEVETIRACETAM (500MG) 1,000 MG in IV NS 0.9% 100 ML IV SCH (09:37)
[2017-01-22] MEDS: CEFEPIME 1 GM in IV D5W 50 ML IV SCH ×2 (09:37→21:12)
[2017-01-22] MEDS: CHLORHEXIDINE GLUCONATE 4% 118 ML BOTTLE TP SCH (09:54)
[2017-01-22] MEDS: FLUTICASONE/VILANTEROL 1 EACH BLST.W.DEV IH SCH (09:55)
[2017-01-22] MEDS: FLUTICASONE 110MCG 1 EA INHALER IH SCH ×2 (09:56→21:13)
[2017-01-22] MEDS: IV NS 0.9% 1,000 ML IV PRN (10:00)
[2017-01-22] MEDS: MUPIROCIN OINT 2% 22 GM TUBE SCH ×2 (10:06→21:17)
[2017-01-22] MEDS ORDERED: POTASSIUM CHLORIDE 20 MEQ POWDER PACKET PO SCH (11:00)
[2017-01-22] MEDS: HYDROCODONE/APAP 5/325MG 1 EACH TABLET PO PRN ×2 (11:55→21:11)
[2017-01-22] MEDS: Magnesium 1GM/D5W 100ML PREMIX 100 ML IV SCH ×4 (11:55→15:57)
[2017-01-22] MEDS ORDERED: NEUTRA PHOS 1 POWD.PACKET PO ONE (16:00)
[2017-01-22] MEDS: ENOXAPARIN SODIUM 40 MG/0.4 ML DISP.SYRIN SQ SCH ×2 (21:00→21:12)
[2017-01-22] MEDS: TAMSULOSIN 0.4 MG CAP.SR.24H PO SCH (21:11)
[2017-01-22] MEDS: LEVETIRACETAM SOL (5 ML) 100 MG/ML UDC PO SCH (21:12)
[2017-01-23] VITALS (8 sets, daily range): BP systolic 98–153; BP diastolic 57–108
[2017-01-23] MEDS: HYDROCODONE/APAP 5/325MG 1 EACH TABLET PO PRN ×3 (02:35→21:31)
[2017-01-23] MEDS: ALBUTEROL HALF STRENGTH 1.25 MG/3 ML VIAL.NEB NEB SCH ×6 (03:30→23:45)
[2017-01-23] MEDS: IPRATROPIUM NEB FS 0.5 MG/2.5 ML AMPUL.NEB NEB SCH ×6 (03:30→23:45)
[2017-01-23] MEDS: IV NS 0.9% 1,000 ML IV PRN ×2 (06:16→22:20)
[2017-01-23] MEDS: VANCOMYCIN 1 GM in IV D5W 250 ML IV SCH ×2 (06:16→18:00)
[2017-01-23] MEDS: PANTOPRAZOLE 40 MG TABLET.DR PO SCH (08:25)
[2017-01-23 08:50] LABS: CALCIUM, SERUM 7.7 mg/dL (8.5-10.1); CREATININE 0.8 mg/dL (0.6-1.3); PHOSPHORUS 2.9 mg/dL (2.5-4.9); POTASSIUM 2.9 mmol/L (3.5-5.1)
[2017-01-23] MEDS: AMLODIPINE BESYLATE 10 MG TABLET PO SCH (09:00)
[2017-01-23 09:08] LABS: BASOPHILS % (AUTO) 0.1 % (0.0-2.0); EOSINOPHILS # (AUTO) 0.4 /CMM (0.0-0.7); EOSINOPHILS % (AUTO) 3.2 % (0.0-6.0); HEMATOCRIT 31 % (39-51); HEMOGLOBIN 10.1 g/dL (13.5-17.5); MEAN CORPUSCULAR HEMOGLOBIN 27 PG (26.0-33.0); MEAN CORPUSCULAR HGB CONC 33 g/dl (31.0-36.0); MEAN CORPUSCULAR VOLUME 82 fL (80-96); MONOCYTES # (AUTO) 1.1 /CMM (0.1-1.30); MONOCYTES % (AUTO) 9.7 % (2.0-12.0); NEUTROPHILS # (AUTO) 8.2 /CMM (1.8-8.9); PLATELET COUNT (AUTO) 332 /CMM (150-450); RDW COEFFICIENT OF VARIATION 18.5 (11.5-15.0); RED BLOOD CELL COUNT(AUTO) 3.74 MIL/uL (4.5-6.0); WHITE BLOOD COUNT (AUTO) 11.7 K/uL (4.3-11.0)
[2017-01-23] MEDS: CEFEPIME 1 GM in IV D5W 50 ML IV SCH ×2 (09:14→21:19)
[2017-01-23] MEDS: LEVETIRACETAM SOL (5 ML) 100 MG/ML UDC PO SCH ×2 (09:15→21:20)
[2017-01-23] MEDS: BACLOFEN (10 MG) 10 MG TABLET PO SCH ×3 (09:16→16:51)
[2017-01-23] MEDS: SERTRALINE HCL 25 MG TABLET PO SCH (09:16)
[2017-01-23] MEDS: FLUTICASONE/VILANTEROL 1 EACH BLST.W.DEV IH SCH (09:22)
[2017-01-23] MEDS: FLUTICASONE 110MCG 1 EA INHALER IH SCH ×2 (09:23→21:19)
[2017-01-23] MEDS: MUPIROCIN OINT 2% 22 GM TUBE SCH ×2 (09:30→21:21)
[2017-01-23] MEDS: CHLORHEXIDINE GLUCONATE 4% 118 ML BOTTLE TP SCH (09:31)
[2017-01-23] MEDS: POTASSIUM CHLORIDE 20 MEQ TAB.PRT.SR PO SCH ×3 (12:50→15:05)
[2017-01-23] MEDS: LACTOBACILLUS RHAMNOSUS GG 1 EACH CAP.SPRINK PO SCH (16:51)
[2017-01-23] MEDS: TAMSULOSIN 0.4 MG CAP.SR.24H PO SCH (21:20)
[2017-01-23] MEDS: ENOXAPARIN SODIUM 40 MG/0.4 ML DISP.SYRIN SQ SCH (21:23)
[2017-01-24] VITALS: BP 113/76
[2017-01-24] MEDS: HYDROCODONE/APAP 5/325MG 1 EACH TABLET PO PRN (01:40)
[2017-01-24] MEDS: IPRATROPIUM NEB FS 0.5 MG/2.5 ML AMPUL.NEB NEB SCH ×3 (03:49→11:23)
[2017-01-24] MEDS: ALBUTEROL HALF STRENGTH 1.25 MG/3 ML VIAL.NEB NEB SCH ×3 (03:50→11:23)
[2017-01-24 04:00] VITALS: BP 120/73
[2017-01-24] MEDS ORDERED: VANCOMYCIN 0.75 GM in IV D5W 250 ML IV SCH (06:00)
[2017-01-24] MEDS ORDERED: LIDOCAINE 2% JEL UROJET 10 ML MM ONE ×2 (06:23→06:30)
[2017-01-24 07:10] LABS: CALCIUM, SERUM 7.4 mg/dL (8.5-10.1); CREATININE 0.7 mg/dL (0.6-1.3)
[2017-01-24 08:00] VITALS: BP 118/73
[2017-01-24] MEDS: FLUTICASONE/VILANTEROL 1 EACH BLST.W.DEV IH SCH (08:59)
[2017-01-24] MEDS: FLUTICASONE 110MCG 1 EA INHALER IH SCH (08:59)
[2017-01-24] MEDS: CEFEPIME 1 GM in IV D5W 50 ML IV SCH (09:00)
[2017-01-24] MEDS: PANTOPRAZOLE 40 MG TABLET.DR PO SCH (09:00)
[2017-01-24] MEDS: LEVETIRACETAM SOL (5 ML) 100 MG/ML UDC PO SCH (09:00)
[2017-01-24] MEDS: SERTRALINE HCL 25 MG TABLET PO SCH (09:00)
[2017-01-24 09:01] VITALS: BP 118/73
[2017-01-24] MEDS: BACLOFEN (10 MG) 10 MG TABLET PO SCH (09:01)
[2017-01-24] MEDS: AMLODIPINE BESYLATE 10 MG TABLET PO SCH (09:01)
[2017-01-24] MEDS: LACTOBACILLUS RHAMNOSUS GG 1 EACH CAP.SPRINK PO SCH (09:01)
[2017-01-24] MEDS: MUPIROCIN OINT 2% 22 GM TUBE SCH (09:01)
[2017-01-24] MEDS ORDERED: POTASSIUM CHLORIDE 20 MEQ TAB.PRT.SR PO ONE (09:30)
== END 2017-01-24 14:00 | DRG 133 ==
LOC: ER 17:17 → ICU 19:31 → TELE2 01-21 16:04 → TELE 01-21 16:33
PROVIDERS: ADMIT Internal Medicine; ATTEND Internal Medicine
PROC: 5A09357 Assistance with Respiratory Ventilation, Less than 24 Consecutive Hours, Continuous Positive Airway Pressure (ICD-10-PCS; principal; 2017-01-19)
PROC: 05H533Z Insertion of Infusion Device into Right Subclavian Vein, Percutaneous Approach (ICD-10-PCS; 2017-01-24)
DX: J96.01 Acute respiratory failure with hypoxia (principal); N17.0 Acute kidney failure with tubular necrosis; J15.6 Pneumonia due to other Gram-negative bacteria; G93.41 Metabolic encephalopathy; F03.90 Unspecified dementia, unspecified severity, without behavioral disturbance, psychotic disturbance, mood disturbance, and anxiety; E86.0 Dehydration; D63.8 Anemia in other chronic diseases classified elsewhere; E11.9 Type 2 diabetes mellitus without complications; E83.51 Hypocalcemia; E83.42 Hypomagnesemia; E87.6 Hypokalemia; F09 Unspecified mental disorder due to known physiological condition; G40.909 Epilepsy, unspecified, not intractable, without status epilepticus; I25.10 Atherosclerotic heart disease of native coronary artery without angina pectoris; I25.84 Coronary atherosclerosis due to calcified coronary lesion; I10 Essential (primary) hypertension; J44.1 Chronic obstructive pulmonary disease with (acute) exacerbation; M81.0 Age-related osteoporosis without current pathological fracture; N13.2 Hydronephrosis with renal and ureteral calculous obstruction; N40.0 Benign prostatic hyperplasia without lower urinary tract symptoms; K21.9 Gastro-esophageal reflux disease without esophagitis; Z87.891 Personal history of nicotine dependence
CPT/HCPCS: 36415; 36600; 71010-TC; 72128-TC; 76770-TC; 80048-TC; 80053-TC; 80061-TC; 80076-TC; 80202-TC; 81000-TC; 82803-TC; 83605-TC; 83735-TC; 83880; 84100-TC; 84484-TC; 85025-TC; 85730-TC; 87040-TC; 87081-TC; 87086-TC; 87186-TC; 94799-TC; A4217; A4606; A6402; A6403; J0692; J1650; J1953; J2250; J2543; J3370; J3475; J3480; J3490; J7030; J7060; Z7610

== ENCOUNTER 2017-02-09 00:09 | Emergency (ER) | payer MEDICAID ==
[~2017-02-09] VITALS: Ht 162.6 cm; Wt 59.0 kg
[~2017-02-09 00:09] MED LIST changes: +ALPR0.5T PO; -ASPI81TA2 PO; +BACL10TA PO; +BISA10SU8 RC; +DIPH50CA37 PO; +HYDR-3658 PO; -HYDR-552 PO; -LEVO750T21 PO; +LOPE2CAP40 PO; -MUPI22OI7; -PANT40TA2 PO; -PRED10TA PO; -PRED20TA PO; +TAMS-12 PO; -VIT1CAPS32 PO
--- NOTE | 2017-02-09 00:10 | NUR ---
To bed 1 an aaox4 62 yo male bb ra from [facility] for sob, 87% ra per ems. placed on o2 cannula at 2lpm. kept hob elevated. initiated cardiac and vs monitoring. comfort measures rendered.
[2017-02-09] MEDS ORDERED: ALBUTEROL FS 2.5 MG/3 ML VIAL.NEB ONE ×2 (00:29→02:29)
[2017-02-09] MEDS ORDERED: IPRATROPIUM NEB FS 0.5 MG/2.5 ML AMPUL.NEB ONE (00:29)
[2017-02-09] MEDS ORDERED: IPRATROPIUM NEB FS 0.5 MG/2.5 ML AMPUL.NEB NEB ONE (00:30)
[2017-02-09] MEDS ORDERED: DOXYCYCLINE HYCLATE (100 MG) 100 MG TABLET PO ONE (00:30)
[2017-02-09] MEDS ORDERED: ALBUTEROL FS 2.5 MG/3 ML VIAL.NEB NEB ONE ×2 (00:30→02:30)
[2017-02-09] MEDS ORDERED: DEXAMETHASONE SOD PHOSPHATE 4 MG/ML VIAL IV ONE (00:30)
[2017-02-09] MEDS ORDERED: DOXYCYCLINE HYCLATE (100 MG) 100 MG TABLET ONE (00:37)
[2017-02-09] MEDS ORDERED: DEXAMETHASONE SOD PHOSPHATE 4 MG/ML VIAL ONE (00:37)
--- NOTE | 2017-02-09 00:42 | NUR ---
MEDICATED PATIENT. ONGOING BREATHING TREATMENT.
[2017-02-09] MEDS ORDERED: ONDANSETRON 4 MG TAB.RAPDIS ONE (01:15)
--- NOTE | 2017-02-09 01:15 | NUR ---
zofran 4mg odt sl given per Dr Rodriguez verbal order for patient's c/o nausea.
[2017-02-09] MEDS ORDERED: IV NS 0.9% 1,000 ML BAG IV ONE (02:30)
--- NOTE | 2017-02-09 02:37 | NUR ---
STARTED A SALINE LOCK ON THE LFA G20, BLOOD DRAWN AND SENT TO LAB.
[2017-02-09 02:49] LABS: HEMATOCRIT 26 % (39-51); HEMOGLOBIN 8.5 g/dL (13.5-17.5); MEAN CORPUSCULAR HEMOGLOBIN 26 PG (26.0-33.0); MEAN CORPUSCULAR HGB CONC 33 g/dl (31.0-36.0); MEAN CORPUSCULAR VOLUME 81 fL (80-96); PLATELET COUNT (AUTO) 385 /CMM (150-450); RDW COEFFICIENT OF VARIATION 17.6 (11.5-15.0); RED BLOOD CELL COUNT(AUTO) 3.23 MIL/uL (4.5-6.0); WHITE BLOOD COUNT (AUTO) 17.6 K/uL (4.3-11.0)
[2017-02-09 02:52] LABS: CALCIUM, SERUM 7.8 mg/dL (8.5-10.1); CREATININE 2.6 mg/dL (0.6-1.3); POTASSIUM 3.7 mmol/L (3.5-5.1)
--- NOTE | 2017-02-09 03:02 | NUR ---
cxr at bedside.
[2017-02-09 03:04] LABS: D-DIMER 2.11 mg/L(FEU (0.17-0.50); INR 1.09 (0.87-1.13); PROTHROMBIN TIME 11.7 SECS (9.5-12.7)
[2017-02-09] MEDS ORDERED: MUPI22OI2 TP (03:38)
[2017-02-09] MEDS ORDERED: LACT1CAP57 PO (03:38)
[2017-02-09] MEDS ORDERED: ENOX40DI SUBCUT (03:38)
[2017-02-09] MEDS ORDERED: IPRA0.2S9 IH (03:38)
[2017-02-09] MEDS ORDERED: PANT40TA2 PO (03:38)
[2017-02-09] MEDS ORDERED: MAG30ORA PO (03:38)
--- NOTE | 2017-02-09 04:34 | NUR ---
ongoing le at bedside.
--- NOTE | 2017-02-09 05:20 | NUR ---
Report given to [facility] pulp house supervisor for [facility].
--- NOTE | 2017-02-09 05:28 | NUR ---
IV removed. Catheter intact and site benign. Pressure and 4x4 applied to site. No bleeding noted. Patient discharged to home in stable condition. Written and verbal after care instructions given. Patient verbalizes understanding of instruction. VSS. No further complaints. Endorsed to [facility] [employer] It ems.
[2017-02-09 05:30] VITALS: BP 118/60
== END 2017-02-09 05:34 ==
LOC: ER 00:10
DX: J44.1 Chronic obstructive pulmonary disease with (acute) exacerbation (principal); E86.0 Dehydration; F32.9 Major depressive disorder, single episode, unspecified; I10 Essential (primary) hypertension; N40.0 Benign prostatic hyperplasia without lower urinary tract symptoms; Z99.81 Dependence on supplemental oxygen
CPT/HCPCS: 36415; 71010; 80048; 85025; 85378; 85610; 93970; 94640 ×3; 99285; A4606; J1100; J7040; Q0162; Z7610

== ENCOUNTER 2017-03-01 06:24 | Inpatient (IN) | payer MEDICAID ==
[~2017-03-01] VITALS: Ht 170.2 cm; Wt 54.4 kg
[~2017-03-01 06:24] MED LIST changes: +ENOX40DI SUBCUT; +IPRA0.2S9 IH; +LACT1CAP57 PO; +MAG30ORA PO; +MUPI22OI2 TP; +PANT40TA2 PO
--- NOTE | 2017-03-01 06:30 | NUR ---
JESÚS FROM [facility] DT SOB, PATIENT RECEIVED AAO4. APPEARS IN NO APPARENT DISTRESS, RESPIRATION EVEN AND UNLABORED, SATING WELL ON ROOM AIR. SKIN IS WARM TO TOUCH AND NON DIAOHORETIC. AFEBRILE. GOWNED PT AND PLACED ON TELE MONITOR., VSS
--- NOTE | 2017-03-01 06:31 | NUR ---
MD MOYER AT BS
--- NOTE | 2017-03-01 06:41 | NUR ---
IC ACCESSED TO RFA 20 AND LFA 20. BLOOD SAMPLE COLLECTED. LAB CALLED FOR HEEL BRUSHER
--- NOTE | 2017-03-01 07:07 | NUR ---
REPORT GIVEN TO LUCIANO DIXON FOR KEI
[2017-03-01] MEDS ORDERED: HYDR-3652 PO (07:37)
[2017-03-01] MEDS ORDERED: MULT-213 PO (07:37)
[2017-03-01 07:39] LABS: HEMATOCRIT 23 % (39-51); HEMOGLOBIN 7.4 g/dL (13.5-17.5); MEAN CORPUSCULAR HEMOGLOBIN 26 PG (26.0-33.0); MEAN CORPUSCULAR HGB CONC 33 g/dl (31.0-36.0); MEAN CORPUSCULAR VOLUME 80 fL (80-96); PLATELET COUNT (AUTO) 464 /CMM (150-450); RDW COEFFICIENT OF VARIATION 16.5 (11.5-15.0); RED BLOOD CELL COUNT(AUTO) 2.84 MIL/uL (4.5-6.0); WHITE BLOOD COUNT (AUTO) 12.1 K/uL (4.3-11.0)
[2017-03-01 07:49] LABS: INR 1.03 (0.87-1.13)
[2017-03-01 07:54] LABS: CALCIUM, SERUM 8.8 mg/dL (8.5-10.1); CARBON DIOXIDE 25 mmol/L (21-32); CHLORIDE 103 mmol/L (98-107); GLUCOSE 108 mg/dL (74-106); POTASSIUM 4.5 mmol/L (3.5-5.1); SODIUM SERUM 138 mmol/L (136-145); UREA NITROGEN, BLOOD 22 mg/dL (7-18)
--- NOTE | 2017-03-01 07:55 | NUR ---
INSURANCE OFFICE CALLED BY ADMITTING FOR AUTHORIZATION, CLOSE PER ADMITTING
[2017-03-01 08:03] LABS: ALANINE AMINOTRANSFERASE 14 U/L (12-78); ALBUMIN 2.1 g/dL (3.4-5.0); ALKALINE PHOSPHATASE 67 U/L (46-116); ASPARTATE AMINOTRANSFERASE 15 U/L (15-37); BILIRUBIN,DIRECT 0.1 mg/dL (0.0-0.2); BILIRUBIN,TOTAL 0.3 mg/dL (0.2-1.0); TOTAL PROTEIN, SERUM 8.1 g/dL (6.4-8.2); TROPONIN I < 0.017 ng/mL (0.00-0.056)
[2017-03-01 09:06] LABS: LYMPHOCYTES % (MANUAL) 15 % (16-48); MONOCYTES % (MANUAL) 9 % (0-11.0); NEUTROPHILS % (MANUAL) 76 (42-76)
--- NOTE | 2017-03-01 09:53 | NUR ---
REPORT GIVEN TO LUCIANO CHAMORRO FOR ADMISSION.
[2017-03-01 11:00] VITALS: BP 106/64
--- NOTE | 2017-03-01 11:07 | NUR ---
PATIENT TRANSFERRED TO [facility] VIA ACLS PROTOCOL FOR ADMISSION. RNPEDRO PABLO TO PROVIDE KEI.
[2017-03-01 11:30] VITALS: BP 108/64
--- NOTE | 2017-03-01 11:30 | NUR ---
RIBBON CUTTER notes 62 years old male, A/O x3. Brought in from ER, admitted from [facility] facility. Leads applied for tele monitor, patient is on oxygen at 2LPM via NC. Patient able to turn and reposition in bed with assist, appears anxious, no c/o shortness of breath or any discomfort. Photos of skin place in the chart. Place call light within reach. Will cont to monitor.
[2017-03-01 12:00] VITALS: BP 110/71
[2017-03-01 16:00] VITALS: BP 107/69
[2017-03-01] MEDS: LEVOFLOXACIN 750 MG /D5W 150ML 750 MG in PREMIX 1 EA IV SCH (16:03)
[2017-03-01] MEDS: FLUTICASONE/VILANTEROL 1 EACH BLST.W.DEV IH SCH (16:12)
[2017-03-01] MEDS: Z GUARD REMEDY 2 OZ OINT TP SCH (16:12)
--- NOTE | 2017-03-01 16:30 | NUR ---
Patient is on sched breathing treatment, notified Nicolas RT.
[2017-03-01] MEDS ORDERED: FLUTICASONE 44MCG 1 EA INHALER IH SCH (17:00)
[2017-03-01] MEDS: BACLOFEN (10 MG) 10 MG TABLET PO SCH (17:30)
[2017-03-01] MEDS: LACTOBACILLUS RHAMNOSUS GG 1 EACH CAP.SPRINK PO SCH (17:30)
[2017-03-01] MEDS: ALBUTEROL FS 2.5 MG/0.5 ML VIAL.NEB NEB SCH ×2 (18:43→19:30)
[2017-03-01] MEDS: IPRATROPIUM NEB FS 0.5 MG/2.5 ML AMPUL.NEB NEB SCH ×2 (18:43→19:30)
--- NOTE | 2017-03-01 18:48 | NUR ---
LEAD NURSE notes Patient in bed, A/O x3. On oxygen at 2LPM via NC, breathing treatment will be given by RT. Patient refused to be changed diaper, on isoflex mattress. On tele monitor sinus tach HR 111. On antibiotic IV with no adverse side effect, afebrile. Place call light within reach. For wound care consult. Will endorse to retail shift supervisor RN for continuity of care.
--- NOTE | 2017-03-01 19:30 | NUR ---
TALENT PROGRAM MANAGER INITIAL NOTES PT IS IN BED SLEEPING, EASILY AROUSED. NO SIGNS OF SOB OR DISTRESS. BREATHING EVENLY AND UNLABORED ON 2L NC. PT IS ON ISOFLEX MATTRESS. IV IS INTACT AND PATENT. BED IS IN LOW AND LOCKED POSITION, CALL LIGHT WITHIN REACH. WILL CONTINUE TO MONITOR.
--- NOTE | 2017-03-01 19:30 | NUR ---
TX GIVEN EARLIER AT [id number]
[2017-03-01 20:00] VITALS: BP 101/64
[2017-03-01] MEDS ORDERED: IPRATROPIUM NEB FS 0.5 MG/2.5 ML AMPUL.NEB NEB PRN (20:30)
[2017-03-01] MEDS: TAMSULOSIN 0.4 MG CAP.SR.24H PO SCH (21:57)
[2017-03-01] MEDS: HEPARIN SODIUM, PORCINE 5000 UNITS/1 ML VIAL SQ SCH (21:57)
[2017-03-01] MEDS: LEVETIRACETAM (250 MG) 250 MG TABLET PO SCH (21:57)
[2017-03-01] MEDS: ALPRAZOLAM 0.5 MG TABLET PO PRN (22:07)
[2017-03-02] VITALS (7 sets, daily range): BP systolic 92–105; BP diastolic 57–72
[2017-03-02] MEDS: ALBUTEROL FS 2.5 MG/0.5 ML VIAL.NEB NEB PRN (02:04)
[2017-03-02] MEDS: IV NS 0.9% 1,000 ML IV PRN ×2 (05:47→18:41)
--- NOTE | 2017-03-02 06:54 | NUR ---
INSTALLATION HELPER CLOSING NOTES PT IS IN BED RESTING, NO SOB OR DISTRESS ON 2L OF O2. PT WAS CLEANED AND MEPILEX WAS APPLIED TO WOUNDS. IV FLUIDS WERE STARTED. ALL NEEDS WERE ANTICIPATED AND MET. WILL ENDORSE TO DAY SHIFT
--- NOTE | 2017-03-02 07:25 | NUR ---
AM RN NOTE Received patient sleeping comfortably in his bed, no acute distress noted. On 2L/min via NC. Resp even and non-labored. IV site intact and patent. On tele monitor. Bed in low locked position. Will continue to monitor.
[2017-03-02] MEDS: IPRATROPIUM NEB FS 0.5 MG/2.5 ML AMPUL.NEB NEB SCH ×4 (07:57→19:58)
[2017-03-02] MEDS: ALBUTEROL FS 2.5 MG/0.5 ML VIAL.NEB NEB SCH ×4 (07:57→19:58)
[2017-03-02] MEDS: BACLOFEN (10 MG) 10 MG TABLET PO SCH ×3 (08:17→16:36)
[2017-03-02] MEDS: LACTOBACILLUS RHAMNOSUS GG 1 EACH CAP.SPRINK PO SCH ×2 (08:17→16:36)
[2017-03-02] MEDS: SERTRALINE HCL 25 MG TABLET PO SCH (08:17)
[2017-03-02] MEDS: MULTIVITAMINS,THERAGRAN 1 UDTAB TABLET PO SCH (08:17)
[2017-03-02] MEDS: FLUTICASONE/VILANTEROL 1 EACH BLST.W.DEV IH SCH (08:17)
[2017-03-02] MEDS: AMLODIPINE BESYLATE 10 MG TABLET PO SCH (08:21)
[2017-03-02] MEDS: LEVETIRACETAM (250 MG) 250 MG TABLET PO SCH ×2 (08:21→22:02)
[2017-03-02] MEDS: HEPARIN SODIUM, PORCINE 5000 UNITS/1 ML VIAL SQ SCH ×2 (08:21→22:02)
[2017-03-02] MEDS: Z GUARD REMEDY 2 OZ OINT TP SCH ×2 (08:22→16:36)
--- NOTE | 2017-03-02 08:38 | NUR ---
AM RN NOTE Pt seen by Dr. Alvarez (Jewel Hole Finish Opener) with new order to D/C telemetry.
[2017-03-02] MEDS ORDERED: ENOXAPARIN SODIUM 40 MG/0.4 ML DISP.SYRIN SQ SCH (09:00)
--- NOTE | 2017-03-02 11:04 | NUR ---
WOUND CARE CONSULT: PT PRESENTS WITH SACRAL ULCER, STAGE 2 AND PERIANAL/BUTTOCK/SCROTAL EXCORIATION, ALL PRESENT ON ADMISSION. PT HAVING LOOSE STOOLS. ALL SKIN PROTECTION AND WOUND RECOMMENDATIONS DISCUSSED WITH NURSING STAFF. PT ON [place] ISOFLEX LOW AIRLOSS BED. WILL SEE PRN. CHO IN AGREEMENT WITH PLAN OF CARE. Addendum: 03/02/17 at 1106 by TURNER ENRIQUE WNDNU Amended: Links added.
[2017-03-02] MEDS: HYDROGEL DRESSING 90 GM TUBE TP SCH (13:00)
[2017-03-02 16:35] LABS: EOSINOPHILS # (AUTO) 0.1 /CMM (0.0-0.7); HEMATOCRIT 21 % (39-51); LYMPHOCYTES # (AUTO) 1.2 /CMM (0.8-4.8); LYMPHOCYTES % (AUTO) 11.2 % (20.0-44.0); MEAN CORPUSCULAR HEMOGLOBIN 26 PG (26.0-33.0); MEAN CORPUSCULAR HGB CONC 32 g/dl (31.0-36.0); MEAN CORPUSCULAR VOLUME 79 fL (80-96); MONOCYTES # (AUTO) 0.9 /CMM (0.1-1.30); MONOCYTES % (AUTO) 8.1 % (2.0-12.0); NEUTROPHILS # (AUTO) 8.8 /CMM (1.8-8.9); NEUTROPHILS % (AUTO) 79.7 % (43.0-81.0); PLATELET COUNT (AUTO) 465 /CMM (150-450); RDW COEFFICIENT OF VARIATION 17.6 (11.5-15.0); RED BLOOD CELL COUNT(AUTO) 2.69 MIL/uL (4.5-6.0); WHITE BLOOD COUNT (AUTO) 11.1 K/uL (4.3-11.0)
[2017-03-02 16:42] LABS: HEMOGLOBIN 6.9 g/dL (13.5-17.5)
[2017-03-02 16:46] LABS: CALCIUM, SERUM 8.1 mg/dL (8.5-10.1); POTASSIUM 4.5 mmol/L (3.5-5.1)
--- NOTE | 2017-03-02 16:52 | NUR ---
AM RN NOTE Lab results H/H 6.03/05 notified to Tata TYPE MAPPER with NNO at this time. Per Tata, she will wait for CXR results to give any further orders. Called X-Ray department again and spoke with Ash, per polysomnography technician is coming upstairs to do X-rays now. Pt awake, denies any pain or discomfort at this time.
--- NOTE | 2017-03-02 16:55 | NUR ---
AM RN NOTE Tech came in to do CXR at this time.
[2017-03-02 17:11] LABS: BAND % (MANUAL) 11 % (0.0-5.0); LYMPHOCYTES % (MANUAL) 15 % (16-48); MONOCYTES % (MANUAL) 10 % (0-11.0); NEUTROPHILS % (MANUAL) 64 (42-76)
--- NOTE | 2017-03-02 17:35 | NUR ---
AM RN NOTE CXR and BMP results notified to Tata CASTILLO with NNO at this time. Pt awake, eating dinner at this time. Will continue to monitor.
--- NOTE | 2017-03-02 18:35 | NUR ---
AM RN NOTE Patient resting in his bed no acute distress noted. On O2 2L/min via NC resp even and non-labored. Tata STRIPPING SHOVEL OILER was aware that pt was noted with loose stool when nurse collected stool for OB. Per Tata collect stool sample if any further loose stool noted. No loose BM noted after that, will endorse to next shift.
--- NOTE | 2017-03-02 19:40 | NUR ---
MS RN INITIAL NOTES PT IS IN BED RESTING, EASILY AROUSED. NO SIGNS OF SOB OR DISTRESS. ON 2L NC BREATHING EVENLY AND UNLABORED. IV ACCESS IS INTACT. HGB AT 6.9, PER DAY SHIFT, PUJA CASTILLO MADE AWARE AND NO FURTHER ORDERS WERE GIVEN. BED IS IN LOW AND LOCKED POSITION, CALL LIGHT WITHIN REACH. WILL CONTINUE TO MONITOR
[2017-03-02] MEDS: TAMSULOSIN 0.4 MG CAP.SR.24H PO SCH (22:02)
[2017-03-03] VITALS (12 sets, daily range): BP systolic 99–111; BP diastolic 60–74
[2017-03-03] MEDS: IV NS 0.9% 1,000 ML IV PRN (05:00)
--- NOTE | 2017-03-03 06:25 | NUR ---
MS RN CLOSING NOTES PT IS IN BED RESTING, NO SOB OR DISTRESS ON 2L OF O2. PT WAS CLEANED, HYDROGEL AND MEPILEX WAS APPLIED TO WOUNDS. IV IS INTACT AND PATENT. PENDING STOOL SAMPLE COLLECTION. ALL NEEDS WERE ANTICIPATED AND MET. WILL ENDORSE TO DAY SHIFT
[2017-03-03 06:41] LABS: BASOPHILS % (AUTO) 0.1 % (0.0-2.0); EOSINOPHILS # (AUTO) 0.2 /CMM (0.0-0.7); EOSINOPHILS % (AUTO) 1.7 % (0.0-6.0); HEMATOCRIT 21 % (39-51); LYMPHOCYTES # (AUTO) 1.7 /CMM (0.8-4.8); LYMPHOCYTES % (AUTO) 16.8 % (20.0-44.0); MEAN CORPUSCULAR HEMOGLOBIN 27 PG (26.0-33.0); MEAN CORPUSCULAR HGB CONC 33 g/dl (31.0-36.0); MEAN CORPUSCULAR VOLUME 80 fL (80-96); MONOCYTES # (AUTO) 0.9 /CMM (0.1-1.30); MONOCYTES % (AUTO) 9.1 % (2.0-12.0); NEUTROPHILS # (AUTO) 7.3 /CMM (1.8-8.9); NEUTROPHILS % (AUTO) 72.3 % (43.0-81.0); PLATELET COUNT (AUTO) 441 /CMM (150-450); RDW COEFFICIENT OF VARIATION 16.9 (11.5-15.0); RED BLOOD CELL COUNT(AUTO) 2.57 MIL/uL (4.5-6.0); WHITE BLOOD COUNT (AUTO) 10.1 K/uL (4.3-11.0)
[2017-03-03 06:56] LABS: CALCIUM, SERUM 8.2 mg/dL (8.5-10.1); CREATININE 1.8 mg/dL (0.6-1.3); MAGNESIUM 1.8 mg/dL (1.8-2.4); PHOSPHORUS 3.6 mg/dL (2.5-4.9)
[2017-03-03 07:05] LABS: POTASSIUM 4.6 mmol/L (3.5-5.1)
[2017-03-03] MEDS: IPRATROPIUM NEB FS 0.5 MG/2.5 ML AMPUL.NEB NEB SCH ×4 (07:27→19:17)
[2017-03-03] MEDS: ALBUTEROL FS 2.5 MG/0.5 ML VIAL.NEB NEB SCH ×4 (07:27→19:17)
--- NOTE | 2017-03-03 07:30 | NUR ---
RN OPENING NOTES RECEIVED PT. IN BED A&OX2-3. BREATHING UNLABORED ON OXYGEN 2L/MIN WITH NASAL CANNULA, AND NO SOB. NO S/S OF ACUTE DISTRESS. IV FLUIDS RUNNING AT 75 ML/HR. BED IS IN LOW POSITION, 2 SIDE RAILS UP, AND BED ALARM ON. INSTRUCTED PT. TO USE CALL LIGHT FOR ASSISTANCE.
[2017-03-03 07:55] LABS: HEMOGLOBIN 6.8 g/dL (13.5-17.5)
--- NOTE | 2017-03-03 08:00 | NUR ---
RN NOTES LAB CALLED TO REPORT PT.'S H&H. HEMOGLOBIN 6.8 AND HEMATOCRIT IS 20.6. PER HALVER MACHINE OPERATOR NURSE PT.'S LAST HEMOGLOBIN LEVEL WAS 6.9 AND HOUSE DECORATOR IS AWARE. WILL FOLLOW UP WITH MD TO REPORT NEW H&H RESULTS FOR ORDERS.
[2017-03-03 08:16] LABS: BAND % (MANUAL) 3 % (0.0-5.0); EOSINOPHILS % (MANUAL) 2 % (0-4); LYMPHOCYTES % (MANUAL) 17 % (16-48); MONOCYTES % (MANUAL) 10 % (0-11.0); NEUTROPHILS % (MANUAL) 68 (42-76)
[2017-03-03] MEDS: LACTOBACILLUS RHAMNOSUS GG 1 EACH CAP.SPRINK PO SCH ×2 (08:33→17:48)
[2017-03-03] MEDS: FLUTICASONE/VILANTEROL 1 EACH BLST.W.DEV IH SCH (08:33)
[2017-03-03] MEDS: MULTIVITAMINS,THERAGRAN 1 UDTAB TABLET PO SCH (08:33)
[2017-03-03] MEDS: SERTRALINE HCL 25 MG TABLET PO SCH (08:35)
[2017-03-03] MEDS: BACLOFEN (10 MG) 10 MG TABLET PO SCH ×3 (08:35→17:48)
[2017-03-03] MEDS: LEVETIRACETAM (250 MG) 250 MG TABLET PO SCH ×2 (08:35→21:50)
[2017-03-03] MEDS: AMLODIPINE BESYLATE 10 MG TABLET PO SCH (08:36)
[2017-03-03] MEDS: HYDROGEL DRESSING 90 GM TUBE TP PRN (08:37)
[2017-03-03] MEDS: HEPARIN SODIUM, PORCINE 5000 UNITS/1 ML VIAL SQ SCH (08:41)
--- NOTE | 2017-03-03 08:41 | NUR ---
RN NOTES MEDICATION HEPARIN SUBQ WAS HELD DUE TO LOW H&H. PT.'S HEMOGLOBIN IS 6.8, AND HEMATOCRIT IS 21.
[2017-03-03] MEDS: Z GUARD REMEDY 2 OZ OINT TP SCH ×2 (08:51→17:50)
[2017-03-03] MEDS: HYDROGEL DRESSING 90 GM TUBE TP SCH (08:51)
--- NOTE | 2017-03-03 09:50 | NUR ---
RN NOTES NOTIFIED GARY HAGEN NP ABOUT PT.'S LOW H&H, NO NEW ORDERS AT THIS TIME.
--- NOTE | 2017-03-03 12:08 | NUR ---
RN NOTES BLOOD TRANSFUSION CONSENT PT. VERBALLY CONSENTED TO A BLOOD TRANSFUSION. RECEIVED A TELEPHONE CONSENT FROM PT.'S SISTER FOR BLOOD TRANSFUSION. WITNESSED BY CHARGE NURSE SHIKHA.
[2017-03-03 13:11] LABS: THYROID STIMULATING HORMONE 0.963 uIU/mL (0.358-3.74)
[2017-03-03] MEDS: LEVOFLOXACIN 750 MG /D5W 150ML 750 MG in PREMIX 1 EA IV SCH (15:38)
--- NOTE | 2017-03-03 19:20 | NUR ---
MS/RN NOTES RECEIVED PT. LYING IN BED. AWAKE, ALERT AND ORIENTED X2-3. BREATHING EVEN AND UNLABORED ON 2LPM O2 VIA NC. PT. IS CURRENTLY RECEIVING BREATHING TREATMENT AT THIS TIME. NO SOB, RESPIRATORY DISTRESS OR COMPLAINTS OF PAIN NOTED AT THIS TIME. PT. WITH LEFT WRIST 22 GAUGE IV PRESENT, PATENT AND INTACT ADMINISTERING TO PT. 1 UNIT PRBC'S. PT. TOLERATING BLOOD TRANSFUSION WELL. VITAL SIGNS STABLE. BED LOCKED AND IN LOWEST POSITION, CALL LIGHT WITHIN REACH, SIDE RAILS UP X2, WILL CONTINUE TO MONITOR.
--- NOTE | 2017-03-03 19:50 | NUR ---
RN CLOSING NOTES PT. IS IN BED A&OX2-3. BREATHING ON OXYGEN 2L/MIN WITH NASAL CANNULA, AND NO SOB. NO S/S OF ACUTE DISTRESS. PT. IS RECEIVING A BLOOD TRANSFUSION RUNNING AT 100 ML/HR WITHOUT COMPLICATIONS. BED IS IN LOW POSITION, 2 SIDE RAILS UP, AND CALL LIGHT WITHIN REACH.
--- NOTE | 2017-03-03 21:13 | NUR ---
MS/RN NOTES NOTIFIED EPIC FABRIC MACHINE OPERATOR JONATHAN MOLINA THAT PT. HAS HEPARIN MEDICATION SCHEDULED AT 2100. PT. HAS LOW H/H OF 6.8/21. PT. IS CURRENTLY RECEIVING ONE UNIT PRBC'S. PER JONATHAN MOLINA NEW ORDER: "DO NOT ADMINISTER HEPARIN MEDICATION, I WILL D/C IT". WILL CARRY OUT ORDER. WILL CONTINUE TO MONITOR.
--- NOTE | 2017-03-03 21:37 | NUR ---
MS/RN NOTES PT. BLOOD TRANSFUSION COMPLETE. PT. RECEIVED 1 UNIT PRBC'S. PT. TOLERATED TRANSFUSION WELL. VITAL SIGNS STABLE. PT. IS LYING IN BED AND APPEARS COMFORTABLE AT THE MOMENT. NO SOB, RESPIRATORY DISTRESS OR COMPLAINTS OF PAIN NOTED AT THIS TIME. WILL CONTINUE TO MONITOR.
[2017-03-03] MEDS: TAMSULOSIN 0.4 MG CAP.SR.24H PO SCH (21:50)
[2017-03-04] MEDS: ALPRAZOLAM 0.5 MG TABLET PO PRN ×2 (02:40→22:43)
[2017-03-04] MEDS: IV NS 0.9% 1,000 ML IV PRN ×2 (06:44→20:46)
--- NOTE | 2017-03-04 06:45 | NUR ---
MS/RN NOTES PT. IS LYING IN BED RESTING. BREATHING EVEN AND UNLABORED ON 2LPM O2 VIA NC. NO SOB, RESPIRATORY DISTRESS OR COMPLAINTS OF PAIN NOTED AT THIS TIME. PT. WITH LEFT WRIST 22 GAUGE IV PRESENT, PATENT AND INTACT ADMINISTERING TO PT. NS @ 75 ML/HR. ALL PT. NEEDS MET. BED LOCKED AND IN LOWEST POSITION, CALL LIGHT WITHIN REACH, SIDE RAILS UP X2, WILL ENDORSE TO DAYSHIFT NURSE FOR CONTINUITY OF CARE.
[2017-03-04] MEDS: IPRATROPIUM NEB FS 0.5 MG/2.5 ML AMPUL.NEB NEB SCH ×4 (07:17→19:34)
[2017-03-04] MEDS: ALBUTEROL FS 2.5 MG/0.5 ML VIAL.NEB NEB SCH ×4 (07:17→19:34)
--- NOTE | 2017-03-04 07:30 | NUR ---
RN OPENING NOTES RECEIVED PT. IN BED A&OX2. PT. IS RECEIVING A BREATHING TREATMENT, AND AM LABS ARE BEING DRAWN. NO S/S OF ACUTE DISTRESS. PT. HAS IV FLUIDS RUNNING ON LEFT WRIST. BED ALARM ON, DVT PUMPS ARE WORKING ON BOTH LEGS, AND BED IS IN LOWEST POSITION. 2 SIDE RAILS ARE UP, AND CALL LIGHT IS WITHIN REACH. ALL NEEDS ATTENDED TO.
[2017-03-04 07:46] LABS: BASOPHILS % (AUTO) 0.1 % (0.0-2.0); EOSINOPHILS # (AUTO) 0.3 /CMM (0.0-0.7); EOSINOPHILS % (AUTO) 2.8 % (0.0-6.0); HEMATOCRIT 25 % (39-51); HEMOGLOBIN 8.1 g/dL (13.5-17.5); LYMPHOCYTES # (AUTO) 1.6 /CMM (0.8-4.8); LYMPHOCYTES % (AUTO) 17.8 % (20.0-44.0); MEAN CORPUSCULAR HEMOGLOBIN 26 PG (26.0-33.0); MEAN CORPUSCULAR HGB CONC 33 g/dl (31.0-36.0); MEAN CORPUSCULAR VOLUME 80 fL (80-96); MONOCYTES # (AUTO) 1.1 /CMM (0.1-1.30); MONOCYTES % (AUTO) 11.9 % (2.0-12.0); NEUTROPHILS # (AUTO) 6.2 /CMM (1.8-8.9); NEUTROPHILS % (AUTO) 67.4 % (43.0-81.0); PLATELET COUNT (AUTO) 514 /CMM (150-450); RDW COEFFICIENT OF VARIATION 16.8 (11.5-15.0); RED BLOOD CELL COUNT(AUTO) 3.08 MIL/uL (4.5-6.0); WHITE BLOOD COUNT (AUTO) 9.2 K/uL (4.3-11.0)
[2017-03-04 08:00] VITALS: BP 101/65
[2017-03-04 08:05] LABS: CALCIUM, SERUM 8.3 mg/dL (8.5-10.1); CREATININE 1.8 mg/dL (0.6-1.3); POTASSIUM 4.9 mmol/L (3.5-5.1)
[2017-03-04 08:10] LABS: IMMUNOGLOBULIN A, SERUM 468 mg/dL (61-437); IMMUNOGLOBULIN G, SERUM 1785 mg/dL (700-1600); IMMUNOGLOBULIN M, SERUM 83 mg/dL (20-172)
[2017-03-04] MEDS: AMLODIPINE BESYLATE 10 MG TABLET PO SCH (09:00)
[2017-03-04] MEDS: LEVETIRACETAM (250 MG) 250 MG TABLET PO SCH ×2 (09:20→21:08)
[2017-03-04] MEDS: LACTOBACILLUS RHAMNOSUS GG 1 EACH CAP.SPRINK PO SCH ×2 (09:23→16:25)
[2017-03-04] MEDS: FLUTICASONE/VILANTEROL 1 EACH BLST.W.DEV IH SCH (09:23)
[2017-03-04] MEDS: SERTRALINE HCL 25 MG TABLET PO SCH (09:23)
[2017-03-04] MEDS: BACLOFEN (10 MG) 10 MG TABLET PO SCH ×3 (09:23→16:25)
[2017-03-04] MEDS: HYDROGEL DRESSING 90 GM TUBE TP PRN (09:25)
[2017-03-04] MEDS: Z GUARD REMEDY 2 OZ OINT TP SCH ×2 (09:25→16:45)
[2017-03-04] MEDS: HYDROGEL DRESSING 90 GM TUBE TP SCH (09:26)
[2017-03-04] MEDS: MULTIVITAMINS,THERAGRAN 1 UDTAB TABLET PO SCH (09:31)
--- NOTE | 2017-03-04 15:00 | NUR ---
RN NOTES PT.'S SACRAL WOUNDS WERE CLEANSED, HYDROGEL, AND MEPILEX WAS APPLIED.
[2017-03-04 16:00] VITALS: BP 115/70
[2017-03-04] MEDS: FERROUS SULFATE (325 MG) 325 MG/TAB TABLET PO SCH (16:44)
--- NOTE | 2017-03-04 18:50 | NUR ---
RN CLOSING NOTES PT. IN BED A&OX2. PT. IS BREATHING UNLABORED ON OXYGEN 1L/MIN WITH NASAL CANNULA. NO S/S OF ACUTE DISTRESS. PT. HAS IV FLUIDS RUNNING ON LEFT WRIST 75 ML/HR. BED ALARM ON, DVT PUMPS ARE WORKING ON BOTH LEGS, AND BED IS IN LOWEST POSITION. 2 SIDE RAILS ARE UP, AND CALL LIGHT IS WITHIN REACH. PT. WAS SEEN AND EXAMINED BY LOCK TECHNICIAN TODAY.
--- NOTE | 2017-03-04 19:15 | NUR ---
MS/WIND COMMISSIONING TECHNICIAN; RECEIVED PT 'S REPORTS FROM THE DAY SHIFT RN FOR CONTINUITY OF CARE. AT THIS TIME PT IN BED AWAKE, ALERT AND VERBALLY RESPONSIVE. WITH IVF INFUSING . WITH O2 2L NC ON. DENIES PAIN. BED ON LOWER BED FOR SAFETY. UPPER PART OF BED SIDE RAILS ARE UP FOR SAFETY. PT INSTRUCTED TO CALL FOR HELP AND CALL LIGHT WITHIN REACH. WILL CONTINUE TO MONITOR.
[2017-03-04 19:56] VITALS: BP 116/68
[2017-03-04] MEDS: TAMSULOSIN 0.4 MG CAP.SR.24H PO SCH (21:32)
--- NOTE | 2017-03-04 22:45 | NUR ---
MS/FEEDER CATCHER; PT IS ANXIOUS AND ASKED FOR MED. XANAX 0.5 MG 1 TAB. PO Q6 PRN GIVEN AT 2243. WILL MONITOR.
--- NOTE | 2017-03-05 | NUR ---
MS/VOIP ENGINEER; SLEEPING AT THIS TIME. BREATHING NON LABORED. IVF ON PROGRESS. WILL CONTINUE TO MONITOR.
--- NOTE | 2017-03-05 01:20 | NUR ---
MS/GLOBAL HEAD ADVERTISER SOLUTIONS; PT IN BED QUIET WITH EYES CLOSED. IVF ON PROGRESS. BREATHING NON LABORED. STILL WITH O2 2L NC ON.
--- NOTE | 2017-03-05 02:00 | NUR ---
MS/MATERIAL STOCKKEEPER YARD; PT IN BED SLEEPING. BREATHING NON LABORED. STILL WITH O2 2L NC. IVF ON PROGRESS WILL CONTINUE TO MONITOR.
--- NOTE | 2017-03-05 04:00 | NUR ---
MS/DIEING OUT MACHINE OPERATOR; PT IN BED SLEEPING. BREATHING NON LABORED. NO COUGHING NOTED.
--- NOTE | 2017-03-05 04:45 | NUR ---
MS/GREEN BUILDING ENGINEER; STEM LEAD FORMER GAVE PT MORNING CARE.
[2017-03-05 05:20] LABS: *SPE A/G RATIO 0.5 (0.7-1.7); *SPE ALBUMIN 2.1 g/dL (2.9-4.4); *SPE ALPHA-1-GLOBULIN 0.5 g/dL (0.0-0.4); *SPE ALPHA-2-GLOBULIN 1.2 g/dL (0.4-1.0); *SPE GLOBULIN, TOTAL 4.6 g/dL (2.2-3.9); *SPE M-SPIKE Not Observed g/dL (Not Observed); *SPE PROTEIN TOTAL 6.7 g/dL (6.0-8.5); *SPEGAMMA GLOBULIN 1.9 g/dL (0.4-1.8)
--- NOTE | 2017-03-05 06:10 | NUR ---
MS/RAW STOCK MACHINE FEEDER; PT SLEEPING AT THIS TIME. BREATHING NON LABORED. IVF ON PROGRESS. WILL CONTINUE TO MONITOR. WILL ENDORSE TO THE DAY SHIFT NURSE.
[2017-03-05 07:13] LABS: BASOPHILS % (AUTO) 0.1 % (0.0-2.0); EOSINOPHILS # (AUTO) 0.4 /CMM (0.0-0.7); EOSINOPHILS % (AUTO) 5.1 % (0.0-6.0); HEMATOCRIT 24 % (39-51); HEMOGLOBIN 7.7 g/dL (13.5-17.5); LYMPHOCYTES # (AUTO) 1.7 /CMM (0.8-4.8); MEAN CORPUSCULAR HEMOGLOBIN 26 PG (26.0-33.0); MEAN CORPUSCULAR HGB CONC 33 g/dl (31.0-36.0); MEAN CORPUSCULAR VOLUME 79 fL (80-96); MONOCYTES # (AUTO) 0.8 /CMM (0.1-1.30); MONOCYTES % (AUTO) 9.4 % (2.0-12.0); NEUTROPHILS # (AUTO) 5.6 /CMM (1.8-8.9); NEUTROPHILS % (AUTO) 65.4 % (43.0-81.0); PLATELET COUNT (AUTO) 510 /CMM (150-450); RDW COEFFICIENT OF VARIATION 16.4 (11.5-15.0); RED BLOOD CELL COUNT(AUTO) 2.98 MIL/uL (4.5-6.0); WHITE BLOOD COUNT (AUTO) 8.6 K/uL (4.3-11.0)
[2017-03-05 07:22] LABS: CALCIUM, SERUM 8.3 mg/dL (8.5-10.1); CREATININE 1.7 mg/dL (0.6-1.3); POTASSIUM 4.3 mmol/L (3.5-5.1)
[2017-03-05] MEDS: IPRATROPIUM NEB FS 0.5 MG/2.5 ML AMPUL.NEB NEB SCH ×4 (07:35→20:00)
[2017-03-05] MEDS: ALBUTEROL FS 2.5 MG/0.5 ML VIAL.NEB NEB SCH ×4 (07:35→20:00)
[2017-03-05 08:00] VITALS: BP 131/79
--- NOTE | 2017-03-05 08:51 | NUR ---
RN NOTES PATIENT ALERT AND ORIENTED X2. VS STABLE. NO C/O PAIN. IV PATENT. NO REDNESS OR INFILTRATION NOTED. BED IN LOW POSITION. RESPIRATIONS EVEN AND UNLABORED. SIDE RAILS X2. BED IN LOW POSITION. CALL LIGHT WITHIN REACH. CONTINUE TO MONITOR.
[2017-03-05] MEDS: SERTRALINE HCL 25 MG TABLET PO SCH (09:23)
[2017-03-05] MEDS: LACTOBACILLUS RHAMNOSUS GG 1 EACH CAP.SPRINK PO SCH ×2 (09:23→17:34)
[2017-03-05] MEDS: LEVETIRACETAM (250 MG) 250 MG TABLET PO SCH ×2 (09:24→21:34)
[2017-03-05] MEDS: MULTIVITAMINS,THERAGRAN 1 UDTAB TABLET PO SCH (09:24)
[2017-03-05] MEDS: BACLOFEN (10 MG) 10 MG TABLET PO SCH ×3 (09:24→17:34)
[2017-03-05] MEDS: AMLODIPINE BESYLATE 10 MG TABLET PO SCH (09:25)
[2017-03-05] MEDS: FERROUS SULFATE (325 MG) 325 MG/TAB TABLET PO SCH ×2 (09:25→17:34)
[2017-03-05] MEDS: FLUTICASONE/VILANTEROL 1 EACH BLST.W.DEV IH SCH (09:28)
[2017-03-05] MEDS: Z GUARD REMEDY 2 OZ OINT TP SCH ×2 (09:28→17:34)
[2017-03-05] MEDS: HYDROGEL DRESSING 90 GM TUBE TP PRN ×2 (09:28→09:35)
[2017-03-05] MEDS: HYDROGEL DRESSING 90 GM TUBE TP SCH (11:10)
[2017-03-05] MEDS: IV NS 0.9% 1,000 ML IV PRN (11:15)
[2017-03-05] MEDS: LEVOFLOXACIN 750 MG /D5W 150ML 750 MG in PREMIX 1 EA IV SCH (15:11)
[2017-03-05 16:00] VITALS: BP 128/71
--- NOTE | 2017-03-05 19:09 | NUR ---
RN NOTES PATIENT ALERT AND ORIENTED X2. VS STABLE. NO C/O PAIN. NO SOB. NO RESPIRATORY DISTRESS. IV PATENT. NO REDNESS OR INFILTRATION NOTED. SKIN CLEAN AND INTACT. WOUND IRRIGATED WITH NS. HYDROGEL APPLIED. COVERED WITH MEPILEX. BED IN LOW POSITION. SIDE RAILS X3. CALL LIGHT WITHIN REACH. WILL ENDORSE TO THE PAINT BOOTH OPERATOR RN FOR CONTINUITY OF CARE.
--- NOTE | 2017-03-05 19:35 | NUR ---
RN OPENING NOTES RECEIVED REPORT FROM STEVE LOMAS RN. FOUND Pt AWAKE RESTING IN BED. Pt IS A/OX2, FORGETFUL. NO S/S OF ACUTE DISTRESS OR SEVERE SOB NOTED. NO C/O PAIN AT THIS TIME. IV ACCESS ON L WRIST IVF NS @75ML/HR, INFUSING WELL. SAFETY MEASURES IN PLACE. BED LOW, LOCKED, HOB ELEVATED, SIDE RAILS UP, CALL LIGHT AND BEDSIDE TABLE WITHIN REACH. WILL CONTINUE TO MONITOR Pt THROUGHOUT THE NIGHT FOR SAFETY.
[2017-03-05 20:00] VITALS: BP 106/71
--- NOTE | 2017-03-05 20:35 | NUR ---
RN NOTES SPOKE WITH DR. SPRAGUE ON THE PHONE TO VERIFY MEDICATION FOR EPOGEN 10,000UNITS 3xWEEK. DR. SPRAGUE WANTS THE MED STARTED TONIGHT, AND THEN ADMINISTERED EVERY THURSDAY, THURSDAY, & THURSDAY. CALLED PHARMACY TO CONFIRM.
[2017-03-05] MEDS: EPOETIN ALFA (10,000 UNIT) 10,000 UNIT/ML VIAL SQ SCH (21:35)
[2017-03-05] MEDS: TAMSULOSIN 0.4 MG CAP.SR.24H PO SCH (21:35)
[2017-03-05 22:00] VITALS: BP 106/71
[2017-03-06] VITALS (46 sets, daily range): BP systolic 83–121; BP diastolic 44–77
[2017-03-06] MEDS: ALBUTEROL FS 2.5 MG/0.5 ML VIAL.NEB NEB PRN (00:49)
[2017-03-06] MEDS: IPRATROPIUM NEB FS 0.5 MG/2.5 ML AMPUL.NEB NEB PRN ×2 (00:49→03:18)
--- NOTE | 2017-03-06 01:20 | NUR ---
RN NOTES Pt IS BECOMING AGITATED WITH ELEVATED HR IN THE 150's. WILL CONTINUE TO MONITOR Pt.
[2017-03-06] MEDS: ALPRAZOLAM 0.5 MG TABLET PO PRN (01:21)
--- NOTE | 2017-03-06 01:55 | NUR ---
RN NOTES HR ELEVATED TO 170's - 180's. INFORMED DR. KINGSLEY OF Pt's CONDITION. DR. KINGSLEY ORDERED FOR AMIODARON DRIP, TITRATE FOR HR <120.
--- NOTE | 2017-03-06 02:00 | NUR ---
RN NOTES WILL HAVE TO TRANSFER Pt TO [facility], TO ADMINISTER AMIODARON DRIP. MD ORDER GIVEN TO TRANSFER TO [facility].
--- NOTE | 2017-03-06 02:30 | NUR ---
RN NOTES REPORT GIVEN TO [facility] LUCIANO CALHOUN.
--- NOTE | 2017-03-06 03:00 | NUR ---
RN NOTES RECEIVED PATIENT FROM MS WITH SHORTNESS OF BREATH, BREATHING USING ACCESSORY MUSCLES, MOANING WITH HEART RATE OF 174BPM. FEBRILE, TEMOP 101.8. COOLING MEASURES PROVIDED. GOT ORDER FOR TYLENOL 650MG PRN EVERY 6 HOURS FOR PAIN OR FEVER. ADMINSTERED 2 TABLETS 325MG, WITH HELP. ADMINISTERED AMIODARONE 150MG BOLUS AT 0346 AND STARTED IV 900MG @3:56. NO ADVERSE EFFECT NOTED. WILL CONTINUE TO MONITOR.
--- NOTE | 2017-03-06 03:10 | NUR ---
RN NOTES Pt TRANSFERRED SAFELY TO [id number], VIA HOSPITAL BED.
[2017-03-06] MEDS ORDERED: IPRATROPIUM NEB FS 0.5 MG/2.5 ML AMPUL.NEB ONE ×4 (03:16)
[2017-03-06] MEDS ORDERED: AMIODARONE 150 MG/3 ML VIAL IV ONE ×8 (03:17→03:27)
[2017-03-06] MEDS ORDERED: AMIODARONE 900 MG in IV D5W 482 ML IV PRN (03:30)
[2017-03-06] MEDS ORDERED: AMIODARONE 150 MG in IV D5W 100 ML IV ONE (04:00)
[2017-03-06] MEDS ORDERED: ACETAMINOPHEN 325 MG TABLET ONE ×4 (04:07)
[2017-03-06] MEDS: ACETAMINOPHEN 650 MG/20.3 ML UDC PO PRN ×3 (04:18→21:36)
[2017-03-06 05:40] LABS: ABG BASE EXCESS -5.3 mmol/L; ABG OXYGEN SATURATION 94.5 % (92.0-98.5); ABG PCO2 27.4 mmHg (35.0-45.0); ABG PH 7.438 (7.350-7.450); ABG PO2 73.1 mmHg (75.0-100.0); AaDO2 94.2 mmHg; COHb 0.6 % (0.5-1.5); MetHb 1.1 % (0.0-1.5); O2Hb 92.9 % (94.0-97.0); SITE, ABG Right Radial; VENT MODE, BG NASAL CANNULA
--- NOTE | 2017-03-06 06:35 | NUR ---
RN CLOSING NOTES RESTING COMFORTABLY IN BED. CONTINUOUS AMIODARONE DRIP FOR 6 HOURS, NO ADVERSE EFFECT NOTED. TEMPERATURE WENT DOWN TO 99.2. WILL ENDORSE TO AM SHIFT FOR CONTINUITY OF CARE.
[2017-03-06] MEDS: ALBUTEROL FS 2.5 MG/0.5 ML VIAL.NEB NEB SCH ×6 (07:15→19:16)
[2017-03-06] MEDS: IPRATROPIUM NEB FS 0.5 MG/2.5 ML AMPUL.NEB NEB SCH ×6 (07:15→19:17)
--- NOTE | 2017-03-06 07:42 | NUR ---
PT REFUSING AM LABS, SAYS TO COME BACK LATER. I EXPLAINED TO HIM THE NEED AND REASON FOR LABS CONCERNING HIS HEART AND BREATHING. PT STILL REFUSING SAYS COME BACK LATER, I ASKED FOR SPECIFIC TIME WHEN TO COME BACK HE SAYS 10 AM.
[2017-03-06] MEDS: AMLODIPINE BESYLATE 10 MG TABLET PO SCH (08:42)
[2017-03-06] MEDS: MULTIVITAMINS,THERAGRAN 1 UDTAB TABLET PO SCH (08:55)
[2017-03-06] MEDS: SERTRALINE HCL 25 MG TABLET PO SCH (08:55)
[2017-03-06] MEDS: BACLOFEN (10 MG) 10 MG TABLET PO SCH ×3 (08:55→16:33)
[2017-03-06] MEDS: FERROUS SULFATE (325 MG) 325 MG/TAB TABLET PO SCH ×2 (08:55→16:33)
[2017-03-06] MEDS: LEVETIRACETAM (250 MG) 250 MG TABLET PO SCH ×2 (08:55→20:38)
[2017-03-06] MEDS: LACTOBACILLUS RHAMNOSUS GG 1 EACH CAP.SPRINK PO SCH ×2 (08:55→16:33)
[2017-03-06] MEDS: Z GUARD REMEDY 2 OZ OINT TP SCH ×2 (08:58→17:43)
[2017-03-06] MEDS: FLUTICASONE/VILANTEROL 1 EACH BLST.W.DEV IH SCH (08:58)
[2017-03-06] MEDS: HYDROGEL DRESSING 90 GM TUBE TP SCH (08:58)
[2017-03-06] MEDS: IV NS 0.9% 1,000 ML IV PRN (09:32)
[2017-03-06 09:59] LABS: HEMATOCRIT 22 % (39-51); HEMOGLOBIN 7.2 g/dL (13.5-17.5); LYMPHOCYTES # (AUTO) 1.2 /CMM (0.8-4.8); LYMPHOCYTES % (AUTO) 2.8 % (20.0-44.0); MEAN CORPUSCULAR HEMOGLOBIN 26 PG (26.0-33.0); MEAN CORPUSCULAR HGB CONC 33 g/dl (31.0-36.0); MEAN CORPUSCULAR VOLUME 78 fL (80-96); MONOCYTES # (AUTO) 0.6 /CMM (0.1-1.30); MONOCYTES % (AUTO) 1.3 % (2.0-12.0); NEUTROPHILS # (AUTO) 39.3 /CMM (1.8-8.9); NEUTROPHILS % (AUTO) 95.9 % (43.0-81.0); PLATELET COUNT (AUTO) 514 /CMM (150-450); RDW COEFFICIENT OF VARIATION 16.7 (11.5-15.0); RED BLOOD CELL COUNT(AUTO) 2.81 MIL/uL (4.5-6.0)
[2017-03-06 10:18] LABS: BAND % (MANUAL) 6 % (0.0-5.0); LYMPHOCYTES % (MANUAL) 3 % (16-48); MONOCYTES % (MANUAL) 5 % (0-11.0); NEUTROPHILS % (MANUAL) 86 (42-76)
[2017-03-06 10:19] LABS: CALCIUM, SERUM 8.1 mg/dL (8.5-10.1); CREATININE 1.9 mg/dL (0.6-1.3); POTASSIUM 4.6 mmol/L (3.5-5.1)
--- NOTE | 2017-03-06 10:21 | NUR ---
NOTIFIED GARY OF CRITICAL LAB WBC 41, PT TEMPERATURE IS 99.4, SBP 90'S (ALSO ON AMIO GTT), SINUS TACH AT 112, RECVD ORDERS FOR BLOOD CULTURES FROM GARY.
[2017-03-06 10:26] LABS: ALBUMIN 1.7 g/dL (3.4-5.0); BILIRUBIN,TOTAL 0.2 mg/dL (0.2-1.0); PHOSPHORUS 2.9 mg/dL (2.5-4.9); TOTAL PROTEIN, SERUM 6.9 g/dL (6.4-8.2)
[2017-03-06 10:28] LABS: MAGNESIUM 1.2 mg/dL (1.8-2.4)
[2017-03-06] MEDS ORDERED: VANCOMYCIN 1 GM in IV D5W 250 ML IV ONE (11:30)
[2017-03-06] MEDS ORDERED: IV NS 0.9% 500 ML IV ONE (12:00)
[2017-03-06] MEDS ORDERED: NOREPINEPHRINE 16 MG in IV D5W 500 ML IV PRN (12:00)
[2017-03-06 12:04] LABS: HEMATOCRIT 21 % (39-51); LYMPHOCYTES # (AUTO) 1.4 /CMM (0.8-4.8); LYMPHOCYTES % (AUTO) 3.6 % (20.0-44.0); MEAN CORPUSCULAR HEMOGLOBIN 26 PG (26.0-33.0); MEAN CORPUSCULAR HGB CONC 33 g/dl (31.0-36.0); MEAN CORPUSCULAR VOLUME 79 fL (80-96); MONOCYTES # (AUTO) 1.2 /CMM (0.1-1.30); MONOCYTES % (AUTO) 3.1 % (2.0-12.0); NEUTROPHILS # (AUTO) 36.8 /CMM (1.8-8.9); NEUTROPHILS % (AUTO) 93.3 % (43.0-81.0); PLATELET COUNT (AUTO) 496 /CMM (150-450); RDW COEFFICIENT OF VARIATION 16.8 (11.5-15.0); RED BLOOD CELL COUNT(AUTO) 2.68 MIL/uL (4.5-6.0)
[2017-03-06] MEDS ORDERED: FEE PK DOSING 1 MIN EA MC ONE (12:09)
[2017-03-06 12:12] LABS: HEMOGLOBIN 6.9 g/dL (13.5-17.5); WHITE BLOOD COUNT (AUTO) 39.4 K/uL (4.3-11.0)
--- NOTE | 2017-03-06 12:15 | NUR ---
PT TRASNFERRED TO ICU PER ORDERS FROM GARY HAGEN. SBP IS IN THE 80'S HE ORDERS FLUID BOLUS NS 500ML, OKAY TO INSERT MIDLINE. INSERT MCKINLEY WITH PUSS FLUIDS DRAINING, SAMPLE SENT FOR URINE CULTURE. REPORT GIVEN TO SHEEP STICKER FOR CONTINUITY OF CARE. PT TRANSFERRED ACLS PROTOCOL.
[2017-03-06] MEDS ORDERED: PIPERACILLIN /TAZOBACTAM 3.375 G in IV D5W 50 ML IV SCH (13:00)
--- NOTE | 2017-03-06 13:00 | NUR ---
HEAD OF LOSS PREVENTION; ADMIT RECEIVED PT FROM [facility] VIA BED WITH ACLS PROTOCOL. PT IS LETHARGIC BUT AROUSABLE. PT AT THIS TIME RECEIVING NORMAL SALINE BOLUS, DUE TO LOW BLOOD PRESSURE ON THE FLOOR. MCKINLEY CATH INTACT DRAINING YELLOW CLOUDY URINE. PT PLACED ON MACHINE TURNER SHOWING SINUS RHYTHM AT THIS TIME AMIODARONE DRIP INFUSING SCHEDULED COMPLETION AT 0345 03/07/17, PER PROTOCOL. WILL DISCUSS WITH
[2017-03-06 14:10] LABS: IRON, SERUM 5 ug/dl (50-175); TOTAL IRON BINDING CAPACITY 144 ug/dl (250-450)
[2017-03-06] MEDS: VANCOMYCIN 0.75 GM in IV D5W 250 ML IV SCH (14:20)
[2017-03-06] MEDS: IV D5/ 0.9% NACL 1,000 ML IV PRN (14:20)
[2017-03-06 14:26] LABS: CHOLESTEROL 88 mg/dL (<200); FERRITIN 508 ng/mL (8-388); HDL CHOLESTEROL 25 mg/dL (40-60); LDL 49 mg/dL (0-99); THYROID STIMULATING HORMONE 0.637 uIU/mL (0.358-3.74); TRIGLYCERIDES 61 mg/dL (30-150)
[2017-03-06 14:34] LABS: TROPONIN I < 0.017 ng/mL (0.00-0.056)
[2017-03-06] MEDS: methylPREDNISolone SOD SUCC 125 MG/2ML VIAL IV SCH ×2 (14:47→20:38)
[2017-03-06] MEDS ORDERED: AMIODARONE HCL 200 MG TABLET PO SCH (17:00)
[2017-03-06] MEDS: PIPERACILLIN /TAZOBACTAM 2.25 G in IV D5W 50 ML IV SCH (17:42)
--- NOTE | 2017-03-06 20:00 | NUR ---
BOLT LOADER NOTES RECEIVED PT IN BED. A/O X3, SLEEPING INTERMITTENTLY. TELE READS SR AT 97 BPM. ON NC AT 2 LPM, ALFONSO WELL. MCKINLEY CATH IN PLACE, DRAINING WELL. PT HAS PRUDENCIO 18G MIDLINE, PRUDENCIO 20G IV AND LW 20G IV, RUNNING AMIO, D5NS AND PRBC. PT DENIES PAIN AT THIS TIME. ALL NEEDS MET. PT PULLED UP IN BED, TURNED AND REPOSITIONED. CALL LIGHT WITHIN REACH.
[2017-03-06 20:59] LABS: APPEARANCE,URINE CLOUDY (CLEAR); BILIRUBIN,URINE NEGATIVE (NEGATIVE); BLOOD, URINE 3+ Ery/uL (NEGATIVE); KETONES,URINE NEGATIVE (NEGATIVE); LEUKOCYTE ESTERASE ,URINE 3+ (NEGATIVE); NITRITE, URINE NEGATIVE (NEGATIVE); PH,URINE 6.5 (5.0-8.0); PROTEIN,URINE 2+ mg/dl (NEGATIVE); UGLUCOSE NEGATIVE (NEGATIVE); UROBILINOGEN,URINE 0.2 EU/dL (0.2)
[2017-03-06 21:05] LABS: COLOR,URINE STRAW (YELLOW)
[2017-03-06] MEDS: TAMSULOSIN 0.4 MG CAP.SR.24H PO SCH (21:10)
[2017-03-06 21:16] LABS: BACTERIA,URINE Many /HPF (None Seen); RBC,URINE NONE SEEN /HPF (0-2); SQUAMOUS EPITHELIAL CELL,UR Few /HPF (None Seen); WBC,URINE TOO NUMEROUS TO COUN /HPF (0-3)
--- NOTE | 2017-03-06 22:03 | NUR ---
COMPRESSION MOLDING MACHINE SETTER NOTES PT RECEIVING SECOND UNIT OF PRBC AT THIS TIME. COMPLAINING OF HEADACHE, PAIN 3/10, TYLENOL 650MG GIVEN.
[2017-03-06] MEDS ORDERED: MORPHINE SULFATE INJ 2 MG/ML DISP.SYRIN ONE (22:48)
[2017-03-06] MEDS: MORPHINE SULFATE INJ 2 MG/ML DISP.SYRIN IV PRN (22:50)
[2017-03-07] VITALS (35 sets, daily range): BP systolic 101–135; BP diastolic 61–82
[2017-03-07] MEDS: PIPERACILLIN /TAZOBACTAM 2.25 G in IV D5W 50 ML IV SCH ×5 (00:15→23:44)
[2017-03-07] MEDS: IV D5/ 0.9% NACL 1,000 ML IV PRN (00:21)
--- NOTE | 2017-03-07 03:45 | NUR ---
FIREWOOD CUTTER NOTES PT IS SLEEPING INTERMITTENTLY, DENIES PAIN AT THIS TIME. REFUSED BED BATH AND LINEN CHANGE, STATING HE WANTS IT LATER IN THE DAY. PT AGREED TO TURNING AND REPOSITIONING. NO BM AT THIS TIME. LINENS APPEAR CLEAN AND DRY.
[2017-03-07] MEDS: methylPREDNISolone SOD SUCC 125 MG/2ML VIAL IV SCH ×3 (04:33→20:46)
[2017-03-07] MEDS: AMIODARONE HCL 200 MG TABLET PO SCH ×4 (04:34→17:37)
[2017-03-07 04:46] LABS: HEMATOCRIT 28 % (39-51); LYMPHOCYTES % (AUTO) 4.1 % (20.0-44.0); MEAN CORPUSCULAR HEMOGLOBIN 26 PG (26.0-33.0); MEAN CORPUSCULAR HGB CONC 32 g/dl (31.0-36.0); MEAN CORPUSCULAR VOLUME 81 fL (80-96); MONOCYTES # (AUTO) 0.2 /CMM (0.1-1.30); MONOCYTES % (AUTO) 0.9 % (2.0-12.0); NEUTROPHILS # (AUTO) 23.3 /CMM (1.8-8.9); PLATELET COUNT (AUTO) 419 /CMM (150-450); RDW COEFFICIENT OF VARIATION 17.4 (11.5-15.0); RED BLOOD CELL COUNT(AUTO) 3.45 MIL/uL (4.5-6.0); WHITE BLOOD COUNT (AUTO) 24.5 K/uL (4.3-11.0)
[2017-03-07 04:59] LABS: CALCIUM, SERUM 7.9 mg/dL (8.5-10.1); CREATININE 1.6 mg/dL (0.6-1.3); MAGNESIUM 1.5 mg/dL (1.8-2.4); PHOSPHORUS 3.6 mg/dL (2.5-4.9); POTASSIUM 4.4 mmol/L (3.5-5.1)
[2017-03-07 05:26] LABS: BAND % (MANUAL) 1 % (0.0-5.0); LYMPHOCYTES % (MANUAL) 5 % (16-48); NEUTROPHILS % (MANUAL) 94 (42-76)
[2017-03-07] MEDS: VANCOMYCIN 0.75 GM in IV D5W 250 ML IV SCH (06:01)
--- NOTE | 2017-03-07 07:30 | NUR ---
ICU/RN: Pt sitting in bed comfortably, breathing even and unlabored on O2 2L/min via NC. IV HL and ML patent, flushed. Pt A&Ox3, guarded. FC draining cloudy urine to gravity. BM smear noted; cleansed. Pt with severe excoriation of perineal and scrotal area. Z-guard applied. Will cont to monitor
[2017-03-07] MEDS: ALBUTEROL FS 2.5 MG/0.5 ML VIAL.NEB NEB SCH ×4 (07:57→20:59)
[2017-03-07] MEDS: IPRATROPIUM NEB FS 0.5 MG/2.5 ML AMPUL.NEB NEB SCH ×4 (07:57→20:56)
[2017-03-07] MEDS: LACTOBACILLUS RHAMNOSUS GG 1 EACH CAP.SPRINK PO SCH ×2 (08:14→17:37)
[2017-03-07] MEDS: LEVETIRACETAM (250 MG) 250 MG TABLET PO SCH ×2 (08:14→20:46)
[2017-03-07] MEDS: Magnesium 1GM/D5W 100ML PREMIX 100 ML IV SCH ×2 (08:14→09:00)
[2017-03-07] MEDS: MULTIVITAMINS,THERAGRAN 1 UDTAB TABLET PO SCH (08:15)
[2017-03-07] MEDS: BACLOFEN (10 MG) 10 MG TABLET PO SCH ×3 (08:15→17:37)
[2017-03-07] MEDS: SERTRALINE HCL 25 MG TABLET PO SCH (08:15)
[2017-03-07] MEDS: AMLODIPINE BESYLATE 10 MG TABLET PO SCH (08:16)
[2017-03-07] MEDS: Z GUARD REMEDY 2 OZ OINT TP SCH ×2 (08:16→17:37)
[2017-03-07] MEDS: FLUTICASONE/VILANTEROL 1 EACH BLST.W.DEV IH SCH (08:16)
[2017-03-07] MEDS: HYDROGEL DRESSING 90 GM TUBE TP SCH (08:16)
--- NOTE | 2017-03-07 09:00 | NUR ---
TELE1/RATE SETTER FROM ICU - 120#1 PT ARRIVED VIA BED, ACCOMPANIED BY ICU NURSE JOSE. REPORT GIVEN AT BEDSIDE. PT A/O X 3. WAS ADMITTED FOR SOB AND ANEMIA. IV SITES FLUSHED, PATENT. PT IS COMFORTABLE AT THIS TIME. TO CONTINUE CARE. CL WITHIN REACHED AND SAFETY MAINTAINED. ON GOING MONITORING.
--- NOTE | 2017-03-07 09:00 | NUR ---
ICU/RN: Pt transferred to [facility] 120-1 accompanied by RN. All belongings, meds and chart transferred with pt. Bedside report given to Leena Huber RN and Clara WOLF for [facility].
[2017-03-07] MEDS ORDERED: Magnesium 1GM/D5W 100ML PREMIX 100 ML IV SCH (10:30)
[2017-03-07] MEDS: LEVOFLOXACIN 750 MG /D5W 150ML 750 MG in PREMIX 1 EA IV SCH (13:37)
--- NOTE | 2017-03-07 13:44 | NUR ---
TELE1/RN ROUNDS - PHYSICAL THERAPY PT BEING SEEN BY PHYSICAL THERAPIST. MONITORING. Addendum: 03/07/17 at 1919 by BERTIN GAGNON RN ADDENDUM: PER PHYSICAL THERAPIST ASSESSMENT PT IS TOO WEAK EVEN WITH FEET DANGLING SITTING IN BED. UNABLE TO AMBULATE.
[2017-03-07] MEDS: SOD FERRIC GLUC 125 MG in IV NS 0.9% 100 ML IV SCH (15:51)
[2017-03-07] MEDS: EPOETIN ALFA (10,000 UNIT) 10,000 UNIT/ML VIAL SQ SCH (15:51)
[2017-03-07] MEDS ORDERED: BOOST PLUS FOOD-CHOCLATE 237 ML BOX PO SCH (17:00)
--- NOTE | 2017-03-07 17:30 | NUR ---
TELE1/RN PM ROUNDS NO ACUTE CHANGE OF CONDITION. PM CARE PROVIDED. MONITORING CONTINUED.
--- NOTE | 2017-03-07 19:30 | NUR ---
RN NOTES: -RECEIVED PATIENT ASLEEP,ON SEMI FOWLERS POSITION, CALL LIGHT WITHIN EASY REACH,ON AT 1L/MIN VIA NC,NO SIGN OF RESPIRATORY DISTRESS AND SOB NOTED,IVF ONGOING ON PRUDENCIO MIDLINE,MCKINLEY CATH IN SITE DRAINING INTO YELLOWISH COLORED URINE AT 100CC LEVEL,ON TELE MONITOR RATE-96 SINUS RHYTHM,FALL,SAFETY AND ASPIRATION PRECAUTION OBSERVE, BED LOW AND LOCKED, CALL LIGHT WITHIN EASY REACH,KEPT ON CLOSE VISUAL CHECK.
--- NOTE | 2017-03-07 19:30 | NUR ---
TELE1/RN AM SHIFT END NOTES NO ACUTE CHANGE OF CONDITION NOTED SINCE PT WAS TRANSFERRED FROM ICU THIS MORNING. ALL NEEDS MET. PT ENDORSED TO PM NURSE TO CONTINUE CARE.
[2017-03-07] MEDS: TAMSULOSIN 0.4 MG CAP.SR.24H PO SCH (22:16)
[2017-03-08] VITALS: BP 135/80
[2017-03-08] MEDS: VANCOMYCIN 0.75 GM in IV D5W 250 ML IV SCH ×2 (00:24→18:21)
--- NOTE | 2017-03-08 02:34 | NUR ---
RN NOTES: ABLE TO SLEEP AT SHORT INTERVALS, NO SOB NOTED,HE VERBALIZED HE FEELS HUNGRY AT AROUND 0220,ABLE TO CONSUME 1 JELLO,ASSISTED, ASPIRATION PRECAUTION OBSERVED.
[2017-03-08 04:00] VITALS: BP 140/84
[2017-03-08] MEDS: methylPREDNISolone SOD SUCC 125 MG/2ML VIAL IV SCH ×3 (05:04→21:00)
[2017-03-08] MEDS: PIPERACILLIN /TAZOBACTAM 2.25 G in IV D5W 50 ML IV SCH (05:04)
[2017-03-08 06:58] LABS: HEMATOCRIT 31 % (39-51); HEMOGLOBIN 10.3 g/dL (13.5-17.5); MEAN CORPUSCULAR HEMOGLOBIN 27 PG (26.0-33.0); MEAN CORPUSCULAR HGB CONC 33 g/dl (31.0-36.0); MEAN CORPUSCULAR VOLUME 80 fL (80-96); PLATELET COUNT (AUTO) 496 /CMM (150-450); RDW COEFFICIENT OF VARIATION 17.8 (11.5-15.0); RED BLOOD CELL COUNT(AUTO) 3.88 MIL/uL (4.5-6.0); WHITE BLOOD COUNT (AUTO) 22.9 K/uL (4.3-11.0)
--- NOTE | 2017-03-08 07:10 | NUR ---
RN NOTES: LATEST RNTKL=721.9.SPONGE BATH RENDERED, CLEAN AND CHANGE, DRESSING APPLIED ON THE SACRAL AND SCROTAL AREA,KEPT COMFORTABLE IN BED,NO SOB OR DISCOMFORT NOTED ENDORSED FOR CONTINUITY OF CARE.
[2017-03-08 07:47] LABS: CALCIUM, SERUM 8.2 mg/dL (8.5-10.1); CREATININE 1.5 mg/dL (0.6-1.3); POTASSIUM 3.8 mmol/L (3.5-5.1)
--- NOTE | 2017-03-08 07:50 | NUR ---
LINE MAINTAINER NOTES: -RECEIVED PATIENT AWAKE ,CALL LIGHT WITHIN EASY REACH,ON AT 1L/MIN VIA NC,NO SIGN OF RESPIRATORY DISTRESS AND SOB NOTED,IVF ONGOING ON PRUDENCIO MIDLINE,MCKINLEY CATH IN SITE DRAINING INTO YELLOWISH COLORED URINE ,ON TELE MONITOR SINUS RHYTHM,FALL,SAFETY AND ASPIRATION PRECAUTION OBSERVE, BED LOW AND LOCKED, CALL LIGHT WITHIN EASY REACH,WILL CONT TO MONITOR CLOSELY CHECK.
[2017-03-08 08:00] VITALS: BP 127/78
[2017-03-08] MEDS: IPRATROPIUM NEB FS 0.5 MG/2.5 ML AMPUL.NEB NEB SCH ×4 (08:20→19:09)
[2017-03-08] MEDS: ALBUTEROL FS 2.5 MG/0.5 ML VIAL.NEB NEB SCH ×4 (08:20→19:09)
[2017-03-08] MEDS: SERTRALINE HCL 25 MG TABLET PO SCH (09:00)
[2017-03-08] MEDS: LACTOBACILLUS RHAMNOSUS GG 1 EACH CAP.SPRINK PO SCH ×2 (09:00→16:12)
[2017-03-08] MEDS: LEVETIRACETAM (250 MG) 250 MG TABLET PO SCH ×2 (09:00→21:46)
[2017-03-08] MEDS: BACLOFEN (10 MG) 10 MG TABLET PO SCH ×3 (09:00→16:12)
[2017-03-08] MEDS: MULTIVITAMINS,THERAGRAN 1 UDTAB TABLET PO SCH (09:00)
[2017-03-08] MEDS: AMLODIPINE BESYLATE 10 MG TABLET PO SCH (09:01)
[2017-03-08] MEDS: AMIODARONE HCL 200 MG TABLET PO SCH ×3 (09:01→16:12)
[2017-03-08] MEDS: Z GUARD REMEDY 2 OZ OINT TP SCH ×2 (09:02→16:14)
[2017-03-08] MEDS: FLUTICASONE/VILANTEROL 1 EACH BLST.W.DEV IH SCH (09:02)
[2017-03-08] MEDS: HYDROGEL DRESSING 90 GM TUBE TP SCH (09:02)
[2017-03-08 09:56] LABS: BAND % (MANUAL) 17 % (0.0-5.0); LYMPHOCYTES % (MANUAL) 5 % (16-48); MONOCYTES % (MANUAL) 3 % (0-11.0); NEUTROPHILS % (MANUAL) 75 (42-76)
--- NOTE | 2017-03-08 11:36 | NUR ---
FINAL CLEANER NOTE ON BREATHING TX BY RT ORDERED ,WILL CONT TO MONITOR CLOSELY
[2017-03-08] MEDS: PIPERACILLIN /TAZOBACTAM 3.375 G in IV D5W 50 ML IV SCH ×2 (12:21→17:07)
[2017-03-08] MEDS: SOD FERRIC GLUC 125 MG in IV NS 0.9% 100 ML IV SCH (13:45)
--- NOTE | 2017-03-08 14:10 | NUR ---
BATCHER OPERATOR NOTE ' PATIENT C\O PAIN ON BUTTOCKS AREA, HAS EXCORIATION ON SACRAL AREA , KEEP CLEAN DRY , TYLENOL PO GIVEN ORDERED, WILL CONT TO MONITOR CLOSELY
[2017-03-08] MEDS: ACETAMINOPHEN 650 MG/20.3 ML UDC PO PRN (14:11)
[2017-03-08 16:00] VITALS: BP 105/65
[2017-03-08] MEDS: IV NS 0.9% 250 ML IV PRN (16:40)
--- NOTE | 2017-03-08 17:13 | NUR ---
MS RN NOTE NEW MID LINE ON RT UPPER ARM INSERTED LION 18 BY JOSIAH WOLF BECAUSE OLD MID LINE IS NOT WORKING WELL ,GARY WOLF CAREER CENTER DIRECTOR NOTIFIED , PATIENT REFUED TO REMOVE OLD MIDLINE ON LT UPPER ARM, EXPLAINED OF RISK TO LEAVING IN PLACE ,STILL REFUSING AND BECOME AGITATED AND UNCOOPERATIVE, WILL F\U
--- NOTE | 2017-03-08 18:00 | NUR ---
RETORT LOAD EXPEDITER NOTE STRONGLY REFUSING TO DRAW BLOOD FOR VANCO LEVEL GET EASILY AGITATED AND UNCOOPERATIVE , DESPITE EXPLANATION OF DRAWING LAB, STATED LEAVE ME ALONE AND BECOME VERBALLY ABUSING TOWARD NURSING STUFF AND HOME TEACHING GRADES 7 AND 8 TEACHER PERSONAL , CALLED PHARMACIST SPOKE WITH MANDY , AWARE THAT PATIENT NONCOMPLYING WITH DRAWING LAB FOR VANCO , UNABLE TO ADMINISTER DOSE AT 1900 . ALSO CALLED TO GARY WOLF AIR ANALYST ,LEFT A MESSAGE
--- NOTE | 2017-03-08 18:18 | NUR ---
MS RN NOTE GARY RN SLEEP MEDICINE PHYSICIAN AWARE THAT PAINTING REFUSING LAB TO [facility] LEVEL NON NEW ORDER GIVEN AT THIS TIME
--- NOTE | 2017-03-08 18:31 | NUR ---
MS RN NOTE PER DR CHURCH TRANSFERRED TO MED [facility] [place] [id number] , KEEP CLEAN DRY, WILL CONT TO MONITOR ACCORDANTLY
[2017-03-08] MEDS: MORPHINE SULFATE INJ 2 MG/ML DISP.SYRIN IV PRN (19:51)
[2017-03-08 20:00] VITALS: BP 117/71
[2017-03-08] MEDS: TAMSULOSIN 0.4 MG CAP.SR.24H PO SCH (21:46)
[2017-03-09] MEDS: PIPERACILLIN /TAZOBACTAM 3.375 G in IV D5W 50 ML IV SCH ×4 (00:28→17:28)
[2017-03-09 04:00] VITALS: BP 125/77
[2017-03-09] MEDS: methylPREDNISolone SOD SUCC 125 MG/2ML VIAL IV SCH ×2 (05:00→12:33)
--- NOTE | 2017-03-09 07:15 | NUR ---
RN NOTE RECEIVED PT ON BED, A/Ox3, RESPIRATION EVEN AND UNLABORED, ON 02 2L N/C , NO SOB NOTED, R UPPER ARM AND L UPPER ARM MIDLINE CDI, C/O R HIP PAIN 12/20 , MEDICATED PER MD ORDER , SR UP x3, CALL LIGHT WITHIN EASY REACH, CONTINUE TO MONITOR PT CLOSELY AND NOTIFY MD FOR ANY SIGNIFICANT CHANGES .
--- NOTE | 2017-03-09 07:18 | NUR ---
RN NOTE RECEIVED PT IN NO ACUTE DISTRESS IN BED. PT IS A/O X 3 AND ABLE TO MAKE NEEDS KNOWN. PT IS VERBALLY AGGRESSIVE WITH STAFF USING FOUL LANGUAGE AND REFUSING CARE. PT IS ON O2 VIA NC @ 2LPM AND TOLERATING WELL @ 98%. PT HAS NEW SHARIFA MIDLINE THAT IS CLEAN DRY INTACT AND PATENT WITH NS @ TKO. PT HAS PRUDENCIO MIDLINE THAT WAS NOT PATENT, BUT PT REFUSED TO ALLOW STAFF TO REMOVE LINE FROM PT. ALL NEEDS MET, ALL ORDERS CARRIED OUT TO THE BEST OF MY ABILITY. WILL ENDORSE CARE TO AM RN FOR CONTINUITY OF CARE.
[2017-03-09] MEDS: MORPHINE SULFATE INJ 2 MG/ML DISP.SYRIN IV PRN ×2 (07:27→19:50)
[2017-03-09] MEDS: ALBUTEROL FS 2.5 MG/0.5 ML VIAL.NEB NEB SCH ×4 (07:34→20:13)
[2017-03-09] MEDS: IPRATROPIUM NEB FS 0.5 MG/2.5 ML AMPUL.NEB NEB SCH ×4 (07:34→20:13)
[2017-03-09 08:00] VITALS: BP 101/65
[2017-03-09] MEDS: LACTOBACILLUS RHAMNOSUS GG 1 EACH CAP.SPRINK PO SCH ×2 (08:29→17:28)
[2017-03-09] MEDS: MULTIVITAMINS,THERAGRAN 1 UDTAB TABLET PO SCH (08:29)
[2017-03-09] MEDS: SERTRALINE HCL 25 MG TABLET PO SCH (08:29)
[2017-03-09] MEDS: BACLOFEN (10 MG) 10 MG TABLET PO SCH ×3 (08:29→17:28)
[2017-03-09] MEDS: LEVETIRACETAM (250 MG) 250 MG TABLET PO SCH ×2 (08:29→21:24)
[2017-03-09] MEDS: AMIODARONE HCL 200 MG TABLET PO SCH ×3 (08:30→17:28)
[2017-03-09] MEDS: HYDROGEL DRESSING 90 GM TUBE TP PRN (08:31)
[2017-03-09] MEDS: Z GUARD REMEDY 2 OZ OINT TP SCH ×2 (08:31→17:27)
[2017-03-09] MEDS: HYDROGEL DRESSING 90 GM TUBE TP SCH (08:31)
[2017-03-09] MEDS: FLUTICASONE/VILANTEROL 1 EACH BLST.W.DEV IH SCH (08:33)
[2017-03-09] MEDS: AMLODIPINE BESYLATE 10 MG TABLET PO SCH (08:36)
[2017-03-09 09:27] LABS: HEMATOCRIT 32 % (39-51); HEMOGLOBIN 10.6 g/dL (13.5-17.5); MEAN CORPUSCULAR HEMOGLOBIN 27 PG (26.0-33.0); MEAN CORPUSCULAR HGB CONC 33 g/dl (31.0-36.0); MEAN CORPUSCULAR VOLUME 81 fL (80-96); PLATELET COUNT (AUTO) 541 /CMM (150-450); RDW COEFFICIENT OF VARIATION 18.3 (11.5-15.0); RED BLOOD CELL COUNT(AUTO) 3.97 MIL/uL (4.5-6.0); WHITE BLOOD COUNT (AUTO) 25.6 K/uL (4.3-11.0)
[2017-03-09 09:58] VITALS: BP 101/65
[2017-03-09 10:21] LABS: CALCIUM, SERUM 8.3 mg/dL (8.5-10.1); CREATININE 1.7 mg/dL (0.6-1.3); POTASSIUM 3.5 mmol/L (3.5-5.1)
[2017-03-09 10:33] LABS: LYMPHOCYTES % (MANUAL) 12 % (16-48); MONOCYTES % (MANUAL) 5 % (0-11.0); NEUTROPHILS % (MANUAL) 83 (42-76)
[2017-03-09] MEDS ORDERED: VANCOMYCIN 0.75 GM in IV D5W 250 ML IV SCH (11:00)
--- NOTE | 2017-03-09 12:00 | NUR ---
RN NOTES PT STABLE , MCKINLEY INTACT AND DRINING TO GRAVITY , KETURAH ANY DISTRESS , CONTINUE TO MONITOR
[2017-03-09] MEDS: SOD FERRIC GLUC 125 MG in IV NS 0.9% 100 ML IV SCH (13:46)
[2017-03-09] MEDS: LEVOFLOXACIN 750 MG /D5W 150ML 750 MG in PREMIX 1 EA IV SCH (15:33)
[2017-03-09 16:00] VITALS: BP 96/60
--- NOTE | 2017-03-09 18:35 | NUR ---
RN NOTES RESPIRATION EVEN AND UNLABORED, MEDICATED PER MD ORDER , SR UP x3, CALL LIGHT WITHIN EASY REACH, BED LOCKED AND IN LOWEST POSITION , NO SIGNIFICANT CHANGES NOTED ON THIS SHIFT .
--- NOTE | 2017-03-09 19:10 | NUR ---
RN OPENING NOTES RECEIVED REPORT FROM AM RN. PATIENT IN BED, A/A/O X3, VERBALLY RESPONSIVE AND ABLE TO MAKE NEEDS KNOWN. BREATHING EVEN AND UNLABORED, ON O2 2L VIA NC. DENIES SOB OR DIFFICULTY BREATHING. PULSES PRESENT. SKIN WARM TO TOUCH. RIGHT UPPER ARM MIDLINE PATENT W/ DRESSING CDI & ON SALINE LOCK. MCKINLEY INTACT & DRAINING YELLOW URINE. DENIES ANY PAIN OR DISCOMFORT @ THIS TIME. SAFETY MEASURES IN PLACE W/ SIDE RAILS UP, BED LOCKED IN LOWEST POSITION, CALL LIGHT WITHIN REACH. WILL CONTINUE TO MONITOR.
[2017-03-09 20:00] VITALS: BP 107/67
[2017-03-09] MEDS: MEROPENEM 500 MG in IV NS 0.9% 50 ML IV SCH (20:25)
[2017-03-09] MEDS: TAMSULOSIN 0.4 MG CAP.SR.24H PO SCH (21:24)
--- NOTE | 2017-03-10 04:00 | NUR ---
RN NOTES PATIENT REFUSED 0400 VITAL SIGNS TO BE TAKEN. CHARGE NURSE AWARE.
--- NOTE | 2017-03-10 07:00 | NUR ---
RN NOTES PT REFUSED MORNING LABS TO BE DRAWN.
--- NOTE | 2017-03-10 07:10 | NUR ---
RN NOTES RECEIVED PT ON BED, A/Ox3, RESPIRATION EVEN AND UNLABORED, ON O2 2L N/C . KETURAH ANY DISTRESS , RIGHT UPPER ARM MIDLINE SITE CDI, MCKINLEY INTACT ,DRAINING YELLOW URINE TO GRAVITY , DENIES ANY PAIN OR DISCOMFORT @ THIS TIME. SR UP x3, BED LOCKED AND IN LOWEST POSITION , CALL LIGHT WITHIN REACH. WILL CONTINUE TO MONITOR PT CLOSELY AND NOTIFY MD FOR ANY SIGNIFICANT CHANGES .
[2017-03-10] MEDS: IPRATROPIUM NEB FS 0.5 MG/2.5 ML AMPUL.NEB NEB SCH ×4 (07:35→19:30)
[2017-03-10] MEDS: ALBUTEROL FS 2.5 MG/0.5 ML VIAL.NEB NEB SCH ×4 (07:35→19:30)
[2017-03-10 08:00] VITALS: BP_SYST 100; BP_SYST 95; BP_DIAS 63; BP_DIAS 65
[2017-03-10] MEDS: MEROPENEM 500 MG in IV NS 0.9% 50 ML IV SCH ×2 (08:14→21:16)
[2017-03-10] MEDS: FLUTICASONE/VILANTEROL 1 EACH BLST.W.DEV IH SCH (08:14)
[2017-03-10] MEDS: MORPHINE SULFATE INJ 2 MG/ML DISP.SYRIN IV PRN ×2 (08:14→21:16)
[2017-03-10] MEDS: methylPREDNISolone SOD SUCC 125 MG/2ML VIAL IV SCH (08:15)
[2017-03-10] MEDS: LEVETIRACETAM (250 MG) 250 MG TABLET PO SCH ×2 (08:16→21:22)
[2017-03-10] MEDS: LACTOBACILLUS RHAMNOSUS GG 1 EACH CAP.SPRINK PO SCH ×2 (08:16→17:02)
[2017-03-10] MEDS: MULTIVITAMINS,THERAGRAN 1 UDTAB TABLET PO SCH (08:17)
[2017-03-10] MEDS: BACLOFEN (10 MG) 10 MG TABLET PO SCH ×3 (08:17→17:02)
[2017-03-10] MEDS: AMIODARONE HCL 200 MG TABLET PO SCH ×3 (08:17→17:02)
[2017-03-10] MEDS: SERTRALINE HCL 25 MG TABLET PO SCH (08:17)
[2017-03-10] MEDS: AMLODIPINE BESYLATE 10 MG TABLET PO SCH (08:18)
[2017-03-10] MEDS: Z GUARD REMEDY 2 OZ OINT TP SCH ×2 (08:19→17:00)
[2017-03-10] MEDS: HYDROGEL DRESSING 90 GM TUBE TP SCH (08:20)
[2017-03-10 11:05] LABS: CALCIUM, SERUM 8.2 mg/dL (8.5-10.1); CREATININE 1.5 mg/dL (0.6-1.3)
[2017-03-10 12:13] LABS: *PEU PROTEIN,TOTAL 101.5 mg/dL (Not Estab.); *PEUR ALBUMIN 33.3 % (.); *PEUR ALPHA-1-GLOBULIN 5.2 % (.); *PEUR ALPHA-2-GLOBULIN 13.4 % (.); *PEUR BETA GLOBULIN 26.8 % (.); *PEUR GAMMA GLOBULIN 21.2 % (.)
[2017-03-10 13:14] LABS: *HGBFR CHEMOGLOBIN SOLUBILITY Negative (Negative); *HGBFRC HEMOGLOBIN A 97.5 % (94.0-98.0); *HGBFRC HEMOGLOBIN A2 2.5 % (0.7-3.1)
[2017-03-10] MEDS: SOD FERRIC GLUC 125 MG in IV NS 0.9% 100 ML IV SCH (14:45)
[2017-03-10] MEDS: EPOETIN ALFA (10,000 UNIT) 10,000 UNIT/ML VIAL SQ SCH (15:42)
[2017-03-10 16:00] VITALS: BP 100/66
--- NOTE | 2017-03-10 16:56 | NUR ---
RN NOTES PT REFUSED AM AND EVENING HYGIENES CARE .
--- NOTE | 2017-03-10 18:00 | NUR ---
RN NOTES RESPIRATION EVEN AND UNLABORED, NO DISTRESS NOTED, MEDICATED PER MD ORDER, REFUSED SACRAL AND WOUND CARE , R UPPER ARM MIDLINE CDI, WILL ENDORSE TO DINING SERVICE WORKER NURSE FOR CONTINUITY OF CARE .
--- NOTE | 2017-03-10 19:25 | NUR ---
RN NOTES RECEIVED PT AWAKE WATCHING TV ONBED. BREATHING EVEN AND UNLABORED. AOX 3 VERBALIZED NEEDS. SATING 96% IV SITE ON SHARIFA MIDLINE INTACT AND PATENT. F/C DRAINED WITH YELLOW COLOR URINE. CALL LIGHT KEPT WITHIN EASY REACH. REMINDED TO USED WHEN NEEDS HELP OR ASSISTANCE. BED LOCKED AND SECURED. SAFETY MEASURES OPROVIDED. PLAN OF CARE EDUCATED. PER PREVIOUS NURSE PATIENT REFUSED TO CHANGED. OFFERED AND ENCOURAGED TO BE CLEANED. PT STILL REFUSED. WILL CONTINUE TO MONITOR.
[2017-03-10 20:00] VITALS: BP 95/63
[2017-03-10 20:56] VITALS: BP 111/73
[2017-03-10] MEDS: TAMSULOSIN 0.4 MG CAP.SR.24H PO SCH (21:18)
[2017-03-11 00:42] VITALS: BP 119/78
[2017-03-11 04:00] VITALS: BP 123/73
[2017-03-11 04:30] VITALS: BP 123/73
[2017-03-11 06:51] LABS: CALCIUM, SERUM 8.6 mg/dL (8.5-10.1); CREATININE 1.4 mg/dL (0.6-1.3)
[2017-03-11 06:52] LABS: POTASSIUM 5.4 mmol/L (3.5-5.1)
--- NOTE | 2017-03-11 07:13 | NUR ---
RN NOTES PATIENT REMAINED IN STABLE CONDITION. NO SIGNIFICANT CHANGES NOTED. TOLERATED O2 2LPM VIA NC. AFEBRILE. NO ACUTE RESP DISTRESS. REFUSED TO BE CLEAN IN THIS SHIFT TRIED HOW MANY TIMES. IV SITE INTACT AND PATENT WITH GOOD BLOOD RETURN. WILL ENDORSED CONTINUITY OF CARE
[2017-03-11] MEDS: IPRATROPIUM NEB FS 0.5 MG/2.5 ML AMPUL.NEB NEB SCH ×4 (07:23→19:56)
[2017-03-11] MEDS: ALBUTEROL FS 2.5 MG/0.5 ML VIAL.NEB NEB SCH ×4 (07:23→19:56)
[2017-03-11 08:00] VITALS: BP 117/69
[2017-03-11] MEDS: MORPHINE SULFATE INJ 2 MG/ML DISP.SYRIN IV PRN ×2 (08:03→19:35)
[2017-03-11] MEDS: methylPREDNISolone SOD SUCC 125 MG/2ML VIAL IV SCH (08:03)
[2017-03-11] MEDS: MEROPENEM 500 MG in IV NS 0.9% 50 ML IV SCH ×2 (08:03→20:27)
[2017-03-11] MEDS: LACTOBACILLUS RHAMNOSUS GG 1 EACH CAP.SPRINK PO SCH ×2 (09:41→18:04)
[2017-03-11] MEDS: AMIODARONE HCL 200 MG TABLET PO SCH ×2 (09:41→17:00)
[2017-03-11] MEDS: LEVETIRACETAM (250 MG) 250 MG TABLET PO SCH ×2 (09:41→20:27)
[2017-03-11] MEDS: BACLOFEN (10 MG) 10 MG TABLET PO SCH ×3 (09:42→18:05)
[2017-03-11] MEDS: MULTIVITAMINS,THERAGRAN 1 UDTAB TABLET PO SCH (09:42)
[2017-03-11] MEDS: SERTRALINE HCL 25 MG TABLET PO SCH (09:42)
[2017-03-11] MEDS: Z GUARD REMEDY 2 OZ OINT TP SCH ×2 (09:43→17:00)
[2017-03-11] MEDS: HYDROGEL DRESSING 90 GM TUBE TP SCH (09:43)
[2017-03-11] MEDS: AMLODIPINE BESYLATE 10 MG TABLET PO SCH (09:43)
[2017-03-11] MEDS: FLUTICASONE/VILANTEROL 1 EACH BLST.W.DEV IH SCH (09:47)
[2017-03-11] MEDS: SOD FERRIC GLUC 125 MG in IV NS 0.9% 100 ML IV SCH (15:10)
[2017-03-11] MEDS: predniSONE 20 MG TABLET PO SCH (15:13)
[2017-03-11 18:30] VITALS: BP 102/60
[2017-03-11 20:00] VITALS: BP 103/68
--- NOTE | 2017-03-11 20:00 | NUR ---
RN NOTES RECEIVED PATIENT AWAKE IN BED WITH NO DISTRESS NOTED, BREATHING EVEN AND UNLABORED. COMPLAINED OF PAIN RIGHT HIP 8/10 AND ASKING FOR MORPHINE. ALERT AND ORIENTED. VERBALLY ABLE TO COMMUNICATE NEEDS. MCKINLEY CATHETER IN PLACE AND INTACT DRAINING CLEAR YELLOW WITH NO FOUL ODOR URINE. ABDOMEN SOFT AND NON TENDER. BOWEL SOUNDS PRESENT IN ALL FOUR QUADRANT. WILL CONTINUE TO MONITOR.
[2017-03-11] MEDS: TAMSULOSIN 0.4 MG CAP.SR.24H PO SCH (22:29)
[2017-03-12] VITALS: BP 103/68
[2017-03-12 04:00] VITALS: BP 113/72
[2017-03-12] MEDS: MORPHINE SULFATE INJ 2 MG/ML DISP.SYRIN IV PRN ×3 (05:44→18:56)
--- NOTE | 2017-03-12 06:58 | NUR ---
RN CLOSING NOTES IN BED SLEEPING WITH NO RESPIRATORY DISTRESS OR SHORTNESS OF BREATH. BREATHING EVEN AND UNLABORED. COMPLAINT OF PAIN AT ABOUT 5AM, MORPHIN 1MG ADMINISTERED, WITH RELIEF. WOUND TREATMENT DONE. REFUSE BLOOD DRAW. NO SIGNIFICANT CHANGE OF CONDITION. KEPT CLEAN AND DRY. WILL ENDORSE TO AM SHIFT FOR CONTINUITY OF CARE.
[2017-03-12] MEDS: ALBUTEROL FS 2.5 MG/0.5 ML VIAL.NEB NEB SCH ×4 (07:23→20:17)
[2017-03-12] MEDS: IPRATROPIUM NEB FS 0.5 MG/2.5 ML AMPUL.NEB NEB SCH ×4 (07:23→20:16)
--- NOTE | 2017-03-12 07:30 | NUR ---
RN NOTES RECEIVED PATIENT IN BED ALERT, AWAKE, ORIENTED X3 WITH BREATHING NORMAL, EVEN AND UNLABORED. NO SOB NOTED. ON 2L O2 VIA NC, SATURATING WELL. NO ACUTE DISTRESS NOTED. SHARIFA MIDLINE IS PATENT AND INTACT. BOWEL SOUND PRESENT. PULSES PRESENT. SAFETY MEASURE OBSERVED. ALL NEEDS ATTENDED. CALL LIGHT WITH IN REACH. WILL CONT TO MONITOR.
[2017-03-12 08:00] VITALS: BP 106/67
[2017-03-12] MEDS: FLUTICASONE/VILANTEROL 1 EACH BLST.W.DEV IH SCH (08:28)
[2017-03-12] MEDS: MEROPENEM 500 MG in IV NS 0.9% 50 ML IV SCH ×2 (08:28→20:50)
[2017-03-12] MEDS: LEVETIRACETAM (250 MG) 250 MG TABLET PO SCH ×2 (08:29→20:50)
[2017-03-12] MEDS: predniSONE 20 MG TABLET PO SCH (08:29)
[2017-03-12] MEDS: BACLOFEN (10 MG) 10 MG TABLET PO SCH ×3 (08:29→17:20)
[2017-03-12] MEDS: LACTOBACILLUS RHAMNOSUS GG 1 EACH CAP.SPRINK PO SCH ×2 (08:29→17:20)
[2017-03-12] MEDS: MULTIVITAMINS,THERAGRAN 1 UDTAB TABLET PO SCH (08:29)
[2017-03-12] MEDS: AMIODARONE HCL 200 MG TABLET PO SCH ×2 (08:29→17:20)
[2017-03-12] MEDS: SERTRALINE HCL 25 MG TABLET PO SCH (08:30)
[2017-03-12] MEDS: AMLODIPINE BESYLATE 10 MG TABLET PO SCH (08:30)
[2017-03-12] MEDS: Z GUARD REMEDY 2 OZ OINT TP SCH ×2 (08:30→17:21)
[2017-03-12] MEDS: HYDROGEL DRESSING 90 GM TUBE TP SCH (08:31)
[2017-03-12 10:12] LABS: EOSINOPHILS % (AUTO) 0.1 % (0.0-6.0); HEMATOCRIT 37 % (39-51); HEMOGLOBIN 11.5 g/dL (13.5-17.5); LYMPHOCYTES # (AUTO) 2.1 /CMM (0.8-4.8); LYMPHOCYTES % (AUTO) 7.8 % (20.0-44.0); MEAN CORPUSCULAR HEMOGLOBIN 26 PG (26.0-33.0); MEAN CORPUSCULAR HGB CONC 31 g/dl (31.0-36.0); MEAN CORPUSCULAR VOLUME 83 fL (80-96); MONOCYTES # (AUTO) 1.8 /CMM (0.1-1.30); MONOCYTES % (AUTO) 6.8 % (2.0-12.0); NEUTROPHILS # (AUTO) 22.5 /CMM (1.8-8.9); NEUTROPHILS % (AUTO) 85.3 % (43.0-81.0); PLATELET COUNT (AUTO) 513 /CMM (150-450); RDW COEFFICIENT OF VARIATION 18.6 (11.5-15.0); RED BLOOD CELL COUNT(AUTO) 4.44 MIL/uL (4.5-6.0); WHITE BLOOD COUNT (AUTO) 26.4 K/uL (4.3-11.0)
[2017-03-12 10:18] LABS: CALCIUM, SERUM 8.2 mg/dL (8.5-10.1); CREATININE 1.4 mg/dL (0.6-1.3); POTASSIUM 4.1 mmol/L (3.5-5.1)
[2017-03-12 10:43] LABS: EOSINOPHILS % (MANUAL) 1 % (0-4); LYMPHOCYTES % (MANUAL) 8 % (16-48); MONOCYTES % (MANUAL) 14 % (0-11.0); NEUTROPHILS % (MANUAL) 77 (42-76)
[2017-03-12] MEDS: EPOETIN ALFA (10,000 UNIT) 10,000 UNIT/ML VIAL SQ SCH (15:00)
[2017-03-12 16:00] VITALS: BP 101/63
--- NOTE | 2017-03-12 19:14 | NUR ---
RN NOTES PATIENT ENDORSED TO NEXT SHIFT IN STABLE CONDITION FOR CONTINUITY OF CARE. NO SGNIFICANT CHANGES NOTED. KEPT CLEAN, DRY AND COMFORTABLE. ALL NEEDS ATTENDED. CALL LIGHT WITH IN REACH. WILL CONT TO MONITOR.
[2017-03-12 20:00] VITALS: BP_SYST 104; BP_SYST 106; BP_DIAS 63; BP_DIAS 66
--- NOTE | 2017-03-12 20:00 | NUR ---
RN NOTES PATIENT IN BED, AWAKE WATCHING TV WITH NO RESPIRATORY DISTRESS OR SHORTNESS OF BREATH. BREATHING EVEN AND UNLABORED. NOTED WITH ANXIETY, XANAX 0.5MG GIVEN WITH HELP. WILL CONTINUE TO MONITOR
[2017-03-12] MEDS: ALPRAZOLAM 0.5 MG TABLET PO PRN (21:00)
[2017-03-12] MEDS: TAMSULOSIN 0.4 MG CAP.SR.24H PO SCH (22:13)
[2017-03-13] VITALS: BP 105/68
[2017-03-13 04:00] VITALS: BP 110/59
[2017-03-13 06:37] LABS: HEMATOCRIT 35 % (39-51); HEMOGLOBIN 11.3 g/dL (13.5-17.5); MEAN CORPUSCULAR HEMOGLOBIN 27 PG (26.0-33.0); MEAN CORPUSCULAR HGB CONC 32 g/dl (31.0-36.0); MEAN CORPUSCULAR VOLUME 84 fL (80-96); PLATELET COUNT (AUTO) 462 /CMM (150-450); RDW COEFFICIENT OF VARIATION 19.6 (11.5-15.0); RED BLOOD CELL COUNT(AUTO) 4.19 MIL/uL (4.5-6.0); WHITE BLOOD COUNT (AUTO) 26.4 K/uL (4.3-11.0)
[2017-03-13 06:41] LABS: INR 1.12 (0.87-1.13); PROTHROMBIN TIME 11.7 SECS (9.5-12.7)
[2017-03-13 06:59] LABS: CALCIUM, SERUM 8.3 mg/dL (8.5-10.1); CREATININE 1.3 mg/dL (0.6-1.3); POTASSIUM 4.2 mmol/L (3.5-5.1)
[2017-03-13] MEDS: ALBUTEROL FS 2.5 MG/0.5 ML VIAL.NEB NEB SCH ×4 (07:35→19:30)
[2017-03-13] MEDS: IPRATROPIUM NEB FS 0.5 MG/2.5 ML AMPUL.NEB NEB SCH ×4 (07:35→19:30)
[2017-03-13 08:00] VITALS: BP 111/70
--- NOTE | 2017-03-13 08:20 | NUR ---
MS RN RECEIVED ON BED, AWAKE,ALERT,ORIENTED X3,NOT IN ANY FORM OF DISTRESS, RESPIRATIONS EVEN AND UNLABORED,NO SOB NOTED,LUNGS ARE CLEAR,ABDOMEN SOFT,POSITIVE BOWEL SOUNDS, DENIES PAIN AT THIS TIME, WILL MONITOR PATIENT'S CONDITION.
[2017-03-13 08:25] LABS: BAND % (MANUAL) 1 % (0.0-5.0); LYMPHOCYTES % (MANUAL) 9 % (16-48); MONOCYTES % (MANUAL) 7 % (0-11.0); NEUTROPHILS % (MANUAL) 83 (42-76)
[2017-03-13] MEDS: LACTOBACILLUS RHAMNOSUS GG 1 EACH CAP.SPRINK PO SCH ×2 (09:00→16:26)
[2017-03-13] MEDS: BACLOFEN (10 MG) 10 MG TABLET PO SCH ×3 (09:00→16:26)
[2017-03-13] MEDS: LEVETIRACETAM (250 MG) 250 MG TABLET PO SCH ×2 (09:00→20:55)
[2017-03-13] MEDS: SERTRALINE HCL 25 MG TABLET PO SCH (09:00)
[2017-03-13] MEDS: MULTIVITAMINS,THERAGRAN 1 UDTAB TABLET PO SCH (09:00)
--- NOTE | 2017-03-13 09:00 | NUR ---
MS WOLF BREAKFAST SERVED, DUE MEDS GIVEN,TOLERATED WELL.
[2017-03-13] MEDS: predniSONE 20 MG TABLET PO SCH (09:01)
[2017-03-13] MEDS: AMIODARONE HCL 200 MG TABLET PO SCH ×2 (09:01→16:32)
[2017-03-13] MEDS: AMLODIPINE BESYLATE 10 MG TABLET PO SCH (09:02)
[2017-03-13] MEDS: FLUTICASONE/VILANTEROL 1 EACH BLST.W.DEV IH SCH (09:08)
[2017-03-13] MEDS: MEROPENEM 500 MG in IV NS 0.9% 50 ML IV SCH ×2 (09:08→19:59)
[2017-03-13] MEDS: Z GUARD REMEDY 2 OZ OINT TP SCH ×2 (09:10→16:42)
[2017-03-13] MEDS: HYDROGEL DRESSING 90 GM TUBE TP SCH (09:10)
[2017-03-13] MEDS: MORPHINE SULFATE INJ 2 MG/ML DISP.SYRIN IV PRN ×3 (10:40→21:02)
--- NOTE | 2017-03-13 11:10 | NUR ---
MS RN WAS SEEN BT PT, STANDING EXERCISES DONE,20% TOLERANCE.
[2017-03-13] MEDS ORDERED: LIDOCAINE 1% INJ 50 ML MDV IJ ONE (12:30)
[2017-03-13] MEDS: BOOST PLUS FOOD-VANILLA 237 ML BOX PO SCH ×2 (13:58→16:38)
--- NOTE | 2017-03-13 15:30 | NUR ---
MS RN WAS SEEN BY DR. SPRAGUE, BONE MARROW EXAMINATION/ EXTRACTION WAS DONE UNDER LOCAL ANESTHESIA, SPECIMEN SENT TO LAB.
[2017-03-13 16:00] VITALS: BP 97/62
--- NOTE | 2017-03-13 17:50 | NUR ---
MS RN ON BED, NO DISTRESS NOTED, WILL ENDORSE TO MANUFACTURING ENGINEER PAINT FOR KEI.
[2017-03-13 20:00] VITALS: BP 104/69
[2017-03-13] MEDS: TAMSULOSIN 0.4 MG CAP.SR.24H PO SCH (22:20)
[2017-03-14] VITALS: BP 108/65
[2017-03-14 04:00] VITALS: BP_SYST 104; BP_DIAS 64; BP_DIAS 70
--- NOTE | 2017-03-14 06:53 | NUR ---
RN CLOSING NOTES RESTING COMFORTABLY IN BED WITH NO DISTRESS NOTED. NO COMPLAINT OF PAIN OF THIS TIME. VITAL SIGNS WNL. NO ADVERSE EFFECT NOTED ON ATB MERREM. FC PATENT AND INTACT. WILL ENDORSE TO AM SHIFT FOR CONTINUITY OF CARE
[2017-03-14] MEDS: ALBUTEROL FS 2.5 MG/0.5 ML VIAL.NEB NEB SCH ×4 (07:35→19:53)
[2017-03-14] MEDS: IPRATROPIUM NEB FS 0.5 MG/2.5 ML AMPUL.NEB NEB SCH ×4 (07:35→19:54)
[2017-03-14 08:00] VITALS: BP_SYST 121; BP_DIAS 73; BP_DIAS 75
[2017-03-14] MEDS: BOOST PLUS FOOD-VANILLA 237 ML BOX PO SCH ×2 (08:00→17:28)
--- NOTE | 2017-03-14 08:00 | NUR ---
MS WOLF AM NOTES RECEIVED PATIENT IN BED ALERT, AWAKE, ORIENTED X3 WITH BREATHING NORMAL, EVEN AND UNLABORED. NO SOB NOTED. ON 2L O2 VIA NC, SATURATING WELL. NO ACUTE DISTRESS NOTED. SHARIFA MIDLINE IS PATENT AND INTACT. BOWEL SOUND PRESENT. PULSES PRESENT. SAFETY MEASURE OBSERVED. NEEDS ATTENDED. CALL LIGHT WITH IN REACH. WILL CONT TO MONITOR.
--- NOTE | 2017-03-14 08:12 | NUR ---
RT PATIENT AWAKE, ALERT, ZERO SOB, REFUSED RESP HHN TX. RN AWARE
[2017-03-14] MEDS: MORPHINE SULFATE INJ 2 MG/ML DISP.SYRIN IV PRN ×4 (09:16→21:21)
[2017-03-14] MEDS: AMLODIPINE BESYLATE 10 MG TABLET PO SCH (09:17)
[2017-03-14] MEDS: MULTIVITAMINS,THERAGRAN 1 UDTAB TABLET PO SCH (09:17)
[2017-03-14] MEDS: LACTOBACILLUS RHAMNOSUS GG 1 EACH CAP.SPRINK PO SCH ×2 (09:17→17:27)
[2017-03-14] MEDS: BACLOFEN (10 MG) 10 MG TABLET PO SCH ×3 (09:17→17:27)
[2017-03-14] MEDS: AMIODARONE HCL 200 MG TABLET PO SCH ×2 (09:17→17:00)
[2017-03-14] MEDS: Z GUARD REMEDY 2 OZ OINT TP SCH ×2 (09:18→17:28)
[2017-03-14] MEDS: SERTRALINE HCL 25 MG TABLET PO SCH (09:18)
[2017-03-14] MEDS: HYDROGEL DRESSING 90 GM TUBE TP SCH (09:20)
[2017-03-14] MEDS: LEVETIRACETAM (250 MG) 250 MG TABLET PO SCH ×2 (09:26→21:20)
[2017-03-14] MEDS: predniSONE 20 MG TABLET PO SCH (09:26)
[2017-03-14] MEDS: MEROPENEM 500 MG in IV NS 0.9% 50 ML IV SCH ×2 (09:42→21:20)
[2017-03-14] MEDS: FLUTICASONE/VILANTEROL 1 EACH BLST.W.DEV IH SCH (09:42)
[2017-03-14 10:41] LABS: BASOPHILS # (AUTO) 0.1 /CMM (0.0-0.2); BASOPHILS % (AUTO) 0.3 % (0.0-2.0); EOSINOPHILS # (AUTO) 0.1 /CMM (0.0-0.7); EOSINOPHILS % (AUTO) 0.7 % (0.0-6.0); HEMATOCRIT 37 % (39-51); HEMOGLOBIN 11.8 g/dL (13.5-17.5); LYMPHOCYTES # (AUTO) 2.3 /CMM (0.8-4.8); LYMPHOCYTES % (AUTO) 11.1 % (20.0-44.0); MEAN CORPUSCULAR HEMOGLOBIN 27 PG (26.0-33.0); MEAN CORPUSCULAR HGB CONC 32 g/dl (31.0-36.0); MEAN CORPUSCULAR VOLUME 84 fL (80-96); MONOCYTES % (AUTO) 4.8 % (2.0-12.0); NEUTROPHILS # (AUTO) 17.5 /CMM (1.8-8.9); NEUTROPHILS % (AUTO) 83.1 % (43.0-81.0); PLATELET COUNT (AUTO) 435 /CMM (150-450); RDW COEFFICIENT OF VARIATION 20.1 (11.5-15.0); RED BLOOD CELL COUNT(AUTO) 4.41 MIL/uL (4.5-6.0)
[2017-03-14 10:46] LABS: CALCIUM, SERUM 8.1 mg/dL (8.5-10.1); CREATININE 1.2 mg/dL (0.6-1.3); POTASSIUM 3.9 mmol/L (3.5-5.1)
--- NOTE | 2017-03-14 11:18 | NUR ---
RT PATIENT CONTINUES TO REFUSE RESP HHN TX'S. NO SOB NOTED. RN NOTIFIED
[2017-03-14] MEDS: EPOETIN ALFA (10,000 UNIT) 10,000 UNIT/ML VIAL SQ SCH (15:00)
--- NOTE | 2017-03-14 15:00 | NUR ---
EPOGEN HELD DUE TO HGB LEVEL OF 11.8.PHARMACIST,VINNIE ARAMBULA.
[2017-03-14 16:00] VITALS: BP 104/64
--- NOTE | 2017-03-14 19:30 | NUR ---
MS RN NOTE RECEIVED PATIENT IN BED ALERT, AWAKE, ORIENTED X3 WITH BREATHING NORMAL, EVEN AND UNLABORED. NO SOB NOTED. ON 2L O2 VIA NC, SATURATING WELL. NO ACUTE DISTRESS NOTED. SHARIFA MIDLINE IS PATENT AND INTACT. BOWEL SOUND PRESENT. PULSES PRESENT. SAFETY MEASURE OBSERVED. NEEDS ATTENDED. CALL LIGHT WITH IN REACH. WILL CONT TO MONITOR.
[2017-03-14] MEDS: TAMSULOSIN 0.4 MG CAP.SR.24H PO SCH (21:20)
[2017-03-15] VITALS: BP 104/66
--- NOTE | 2017-03-15 | NUR ---
MS RN NOTE TRANSFERRED BY WHEELCHAIR TO ROOM 201 WITH ANTIBIOTICS AND ALL BELONGINGS IN STABLE CONDITION.
--- NOTE | 2017-03-15 00:15 | NUR ---
MS RN NOTES RECEIVED TRANSFER FROM [facility] PER WHEELCHAIR,A/O X3,NO SOB.O2 SAT 99% ON ROOM AIR.WITH RIGHT UPPER ARM MIDLINE INFUSING NS AT TKO RATE.NOTED SACRAL ULCER DRESSING INTACT AND DRY.WITH MCKINLEY CATH IN PLACE DRAINING YELLOWISH OUTPUT.CALL LIGHT IN REACH,NEEDS ANTICIPATED.
[2017-03-15 01:19] VITALS: BP 106/69
[2017-03-15] MEDS: MORPHINE SULFATE INJ 2 MG/ML DISP.SYRIN IV PRN ×6 (02:48→21:08)
--- NOTE | 2017-03-15 02:48 | NUR ---
MS RN NOTES C/O RIGHT HIP PAIN 9/10 ON PAIN SCALE,MORPHINE 1MG IV ADMINISTERED ORDERED AND PER PATIENT REQUEST.BP 110/70
--- NOTE | 2017-03-15 06:26 | NUR ---
MS RN NOTES FAIRLY RESTED.REMAINS ALERT X 3,PLACE ON ISOLATION PRECAUTION FOR ESBL URINE.CALL LIGHT IN REACH,NEEDS ATTENDED.IN NO ACUTE DISTRESS.
--- NOTE | 2017-03-15 07:30 | NUR ---
MS/RN Patient received Patient received from fast food shift lead. Denies pain or discomfort, vital signs stable. Call light within reach, side rails X3 in upright position, brakes locked, bed in low setting. Will continue to monitor and ensure safety.
[2017-03-15] MEDS: IPRATROPIUM NEB FS 0.5 MG/2.5 ML AMPUL.NEB NEB SCH ×3 (07:35→20:20)
[2017-03-15] MEDS: ALBUTEROL FS 2.5 MG/0.5 ML VIAL.NEB NEB SCH ×3 (07:35→20:20)
[2017-03-15 08:00] VITALS: BP 117/91
[2017-03-15] MEDS: BOOST PLUS FOOD-VANILLA 237 ML BOX PO SCH ×2 (08:00→17:00)
[2017-03-15 08:23] LABS: CALCIUM, SERUM 8.3 mg/dL (8.5-10.1); CREATININE 1.2 mg/dL (0.6-1.3); POTASSIUM 4.4 mmol/L (3.5-5.1)
[2017-03-15 08:26] LABS: HEMATOCRIT 38 % (39-51); HEMOGLOBIN 11.9 g/dL (13.5-17.5); LYMPHOCYTES # (AUTO) 2.1 /CMM (0.8-4.8); LYMPHOCYTES % (AUTO) 10.7 % (20.0-44.0); MEAN CORPUSCULAR HEMOGLOBIN 27 PG (26.0-33.0); MEAN CORPUSCULAR HGB CONC 32 g/dl (31.0-36.0); MEAN CORPUSCULAR VOLUME 85 fL (80-96); MONOCYTES # (AUTO) 0.6 /CMM (0.1-1.30); MONOCYTES % (AUTO) 3.1 % (2.0-12.0); NEUTROPHILS # (AUTO) 17.1 /CMM (1.8-8.9); NEUTROPHILS % (AUTO) 86.2 % (43.0-81.0); PLATELET COUNT (AUTO) 341 /CMM (150-450); RDW COEFFICIENT OF VARIATION 21.7 (11.5-15.0); RED BLOOD CELL COUNT(AUTO) 4.47 MIL/uL (4.5-6.0); WHITE BLOOD COUNT (AUTO) 19.9 K/uL (4.3-11.0)
[2017-03-15] MEDS: BACLOFEN (10 MG) 10 MG TABLET PO SCH ×3 (08:50→17:08)
[2017-03-15] MEDS: MEROPENEM 500 MG in IV NS 0.9% 50 ML IV SCH ×2 (08:50→20:21)
[2017-03-15] MEDS: SERTRALINE HCL 25 MG TABLET PO SCH (08:50)
[2017-03-15] MEDS: predniSONE 20 MG TABLET PO SCH (08:50)
[2017-03-15] MEDS: MULTIVITAMINS,THERAGRAN 1 UDTAB TABLET PO SCH (08:50)
[2017-03-15] MEDS: LEVETIRACETAM (250 MG) 250 MG TABLET PO SCH ×2 (08:51→20:21)
[2017-03-15] MEDS: AMLODIPINE BESYLATE 10 MG TABLET PO SCH (08:51)
[2017-03-15] MEDS: LACTOBACILLUS RHAMNOSUS GG 1 EACH CAP.SPRINK PO SCH ×2 (08:51→17:08)
[2017-03-15] MEDS: AMIODARONE HCL 200 MG TABLET PO SCH ×2 (08:51→17:00)
[2017-03-15] MEDS: HYDROGEL DRESSING 90 GM TUBE TP PRN (08:52)
[2017-03-15] MEDS: FLUTICASONE/VILANTEROL 1 EACH BLST.W.DEV IH SCH (08:53)
[2017-03-15] MEDS: HYDROGEL DRESSING 90 GM TUBE TP SCH (08:55)
[2017-03-15] MEDS: Z GUARD REMEDY 2 OZ OINT TP SCH ×2 (08:55→17:10)
--- NOTE | 2017-03-15 09:10 | NUR ---
MS/RN Pain Complaining of generalized pain (12/22). Morphine 1mg given as ordered, will monitor effectiveness.
[2017-03-15] MEDS: IV NS 0.9% 250 ML IV PRN (09:19)
[2017-03-15 09:52] LABS: LYMPHOCYTES % (MANUAL) 8 % (16-48); METAMYELOCYTES % 1 % (0-0); MONOCYTES % (MANUAL) 9 % (0-11.0); NEUTROPHILS % (MANUAL) 82 (42-76)
--- NOTE | 2017-03-15 11:00 | NUR ---
MS/RN S/B Dr Hernandez Seen by Dr Hernandez - awaiting results of bone marrow biopsy.
--- NOTE | 2017-03-15 11:32 | NUR ---
MS/RN RT RT at bedside for scheduled breathing treatment. No shortness of breath observed, saturation >94%
--- NOTE | 2017-03-15 12:30 | NUR ---
MS/RN S/B Dr Champagne Seen by Dr Champagne - labs ordered for tomorrow, to continue with current plan of care.
--- NOTE | 2017-03-15 13:19 | NUR ---
MS/RN Morphine 1mg morphine given for pain scale 6/10 generalized pain. Will monitor effectiveness.
[2017-03-15 16:00] VITALS: BP 102/69
--- NOTE | 2017-03-15 16:29 | NUR ---
MS/RN Dressing Dressing to sacral area changed, redressed with hydrogel and mepilex.
[2017-03-15 16:55] VITALS: BP 102/69
--- NOTE | 2017-03-15 18:31 | NUR ---
MS/RN End note No shortness of breath throughout the shift, saturation remains greater than 94%. Vital signs stable. Last pain medication administered at 1705. Will continue to monitor and endorse to overnight associate.
--- NOTE | 2017-03-15 19:35 | NUR ---
RN INITIAL NOTES: RECEIVED PT, A/O X3 ON 2L VIA NC RESPIRATION EVEN AND UNLABORED, C/O 4/10 PAIN ON LEFT HIP AREA AWARE OF HIS NEXT MORPHINE DUE AT 2107, STATED HE WILL WAIT FOR MORPHINE. PT HAS SHARIFA MIDLINE PATENT AND FLUSHING WELL, INFUSING WITH NS AT TKO. RECEIVED WITH MCKINLEY CATHETER IN PLACED. SAFETY PRECAUTIONS FOR FALL INITIATED CALL LIGHT IN REACH, WILL CONTINUE TO MONITOR.
[2017-03-15 20:00] VITALS: BP 113/68
[2017-03-15] MEDS: TAMSULOSIN 0.4 MG CAP.SR.24H PO SCH (21:08)
--- NOTE | 2017-03-15 21:09 | NUR ---
PRN MORPHINE: PT C/O 01/22 LEFT HIP PAIN REQUESTING FOR MORPHINE, PRN MORPHINE 1MG IVP ADMINISTERED TO THE PT AT THIS TIME, EDUCATE PT REGARDING MEDICATION SIDE EFFECT, WILL CONTINUE TO MONITOR AND REASSESS
[2017-03-15] MEDS: ALPRAZOLAM 0.5 MG TABLET PO PRN (23:19)
--- NOTE | 2017-03-15 23:19 | NUR ---
prn xanax: pt requested for anxiety pill, prn xanax 0.5mg tab po administered to the pt at this time
[2017-03-16] MEDS: MORPHINE SULFATE INJ 2 MG/ML DISP.SYRIN IV PRN ×4 (01:08→15:17)
--- NOTE | 2017-03-16 01:08 | NUR ---
prn morphine: pt c/o 12/22 left hip pain, requesting for morphine, prn morphine 1mg ivp administered to the pt at this time, will continue to monitor and reassess
--- NOTE | 2017-03-16 04:41 | NUR ---
REFUSAL FOR PICTURES: PT REFUSED FOR PICTURES TO BE TAKEN, HE STATED "LEAVE ME ALONE" EDUCATION PROVIDED TO THE PT
--- NOTE | 2017-03-16 06:30 | NUR ---
RN NOTES: PT FINALLY AGREE TO HAVE PICTURE TAKEN FOR SKIN ISSUES, PRINTED AND ATTACHED TO CHART.
[2017-03-16] MEDS: IV NS 0.9% 250 ML IV PRN (06:42)
--- NOTE | 2017-03-16 07:06 | NUR ---
PRN MORPHINE: PT C/O 12/22 LEFT HIP PAIN REQUESTING FOR MORPHINE, PRN MORPHINE 1MG IVP ADMINISTERED TO THE PT AT THIS TIME, WILL CONTINUE TO MONITOR AND REASSESS
--- NOTE | 2017-03-16 07:10 | NUR ---
RN CLOSING NOTES: PT IN BED, AWAKE, REMAINS ON 2L VIA NC, LAST PAIN MEDICATION ADMINISTERED 0706AM, SHARIFA MIDLINE REMAINS PATENT AND FLUSHING WELL, INFUSING WITH NS AT TKO. MCKINLEY REMAINS IN PLACED. POSSIBLE DC TODAY, EXIT CARE COMPLETED. VS REMAINS STABLE, NEEDS ATTENDED, SAFETY PRECAUTIONS FOR FALL REMAINS ENGAGED, CALL LIGHT IN REACH, WILL ENDORSE TO DAY RN FOR KEI.
--- NOTE | 2017-03-16 07:25 | NUR ---
RN OPENING NOTES PATIENT RESTING COMFORTABLY IN BED WITH EYES CLOSED. PATIENT A/OX3. PATIENT COMPLAINING OF HIP PAIN 01/22. DENIES CP, SOB. RESPIRATION EVEN AND UNLABORED. NO SIGNS OF ACUTE DISTRESS. PATIENT ON 2L SATURATING AT 99%. PATIENT HAS SHARIFA MIDLINE IN PLACE. NS TKO. MIDLINE PATENT AND INTACT. AWAITING BIOPSY RESULTS. BED LOCKED IN THE LOWEST POSITION WITH SIDE RAILS UP X2. CALL LIGHT WITHIN REACH. WILL CONTINUE TO MONITOR, EDUCATE AND ASSESS PATIENT THROUGHOUT SHIFT.
[2017-03-16] MEDS: IPRATROPIUM NEB FS 0.5 MG/2.5 ML AMPUL.NEB NEB SCH ×3 (07:42→15:05)
[2017-03-16] MEDS: ALBUTEROL FS 2.5 MG/0.5 ML VIAL.NEB NEB SCH ×3 (07:42→15:05)
[2017-03-16 08:00] VITALS: BP 117/70
[2017-03-16] MEDS: MEROPENEM 500 MG in IV NS 0.9% 50 ML IV SCH (08:31)
[2017-03-16] MEDS: Z GUARD REMEDY 2 OZ OINT TP SCH ×2 (08:32→17:09)
[2017-03-16] MEDS: HYDROGEL DRESSING 90 GM TUBE TP SCH (08:32)
[2017-03-16] MEDS: FLUTICASONE/VILANTEROL 1 EACH BLST.W.DEV IH SCH (08:32)
[2017-03-16] MEDS: LACTOBACILLUS RHAMNOSUS GG 1 EACH CAP.SPRINK PO SCH ×2 (08:40→17:08)
[2017-03-16] MEDS: SERTRALINE HCL 25 MG TABLET PO SCH (08:40)
[2017-03-16] MEDS: LEVETIRACETAM (250 MG) 250 MG TABLET PO SCH (08:40)
[2017-03-16] MEDS: MULTIVITAMINS,THERAGRAN 1 UDTAB TABLET PO SCH (08:40)
[2017-03-16] MEDS: BACLOFEN (10 MG) 10 MG TABLET PO SCH ×3 (08:40→17:08)
[2017-03-16] MEDS: predniSONE 20 MG TABLET PO SCH (08:41)
[2017-03-16] MEDS: AMLODIPINE BESYLATE 10 MG TABLET PO SCH (08:45)
[2017-03-16] MEDS: AMIODARONE HCL 200 MG TABLET PO SCH ×2 (08:45→17:08)
[2017-03-16] MEDS: BOOST PLUS FOOD-VANILLA 237 ML BOX PO SCH ×2 (09:25→17:08)
[2017-03-16 11:16] LABS: HEMATOCRIT 38 % (39-51); MEAN CORPUSCULAR HEMOGLOBIN 27 PG (26.0-33.0); MEAN CORPUSCULAR HGB CONC 31 g/dl (31.0-36.0); MEAN CORPUSCULAR VOLUME 85 fL (80-96); PLATELET COUNT (AUTO) 378 /CMM (150-450); RDW COEFFICIENT OF VARIATION 24.5 (11.5-15.0); RED BLOOD CELL COUNT(AUTO) 4.49 MIL/uL (4.5-6.0); WHITE BLOOD COUNT (AUTO) 21.3 K/uL (4.3-11.0)
[2017-03-16 11:30] LABS: CALCIUM, SERUM 8.2 mg/dL (8.5-10.1); CREATININE 1.3 mg/dL (0.6-1.3)
[2017-03-16 11:48] LABS: LYMPHOCYTES % (MANUAL) 6 % (16-48); MONOCYTES % (MANUAL) 2 % (0-11.0); NEUTROPHILS % (MANUAL) 92 (42-76)
[2017-03-16] MEDS ORDERED: EPOE1VIA7 SQ (12:55)
[2017-03-16 16:00] VITALS: BP 119/72
[2017-03-16 17:08] VITALS: BP 119/66
--- NOTE | 2017-03-16 19:59 | NUR ---
RN CLOSING NOTES PT DISCHARGED IN STABLE CONDITION. REPORT GIVEN TO RN AT [facility]. PT SENT WITH SHARIFA MIDLINE AND F/C IN PLACE. PATIENT VERBALIZED UNDERSTANDING OF DISCHARGE INSTRUCTIONS. EXITCARE DONE. PATIENT SIGNED APPROPRIATE DOCUMENTATION. PT AOX3. NO ACUTE DISTRESS NOTED. RESPIRATIONS EVEN AND UNLABORED. PT ON 2L SATURATING ADEQUATELY. ALL NEEDS MET ALL MEDS GIVEN APPROPRIATE.
== END 2017-03-16 18:54 | DRG 720 ==
LOC: ER 06:25 → TELE 11:08 → MED 03-02 08:30 → TELE-TD 03-06 02:57 → ICU 03-06 12:04 → TELE1 03-07 09:33 → TELE-TD 03-08 03:13 → MEDSG1 03-08 18:36 → MEDSG2 03-15 00:13
PROVIDERS: ADMIT Nurse Practitioner Acute Care; ATTEND Nurse Practitioner Acute Care
PROC: 30233N1 Transfusion of Nonautologous Red Blood Cells into Peripheral Vein, Percutaneous Approach (ICD-10-PCS; principal; 2017-03-03)
PROC: B546ZZA Ultrasonography of Right Subclavian Vein, Guidance (ICD-10-PCS; 2017-03-08)
PROC: 05H533Z Insertion of Infusion Device into Right Subclavian Vein, Percutaneous Approach (ICD-10-PCS; 2017-03-08)
PROC: 07DR3ZX Extraction of Iliac Bone Marrow, Percutaneous Approach, Diagnostic (ICD-10-PCS; 2017-03-13)
DX: A41.9 Sepsis, unspecified organism (principal); N17.0 Acute kidney failure with tubular necrosis; J96.01 Acute respiratory failure with hypoxia; R65.21 Severe sepsis with septic shock; G93.41 Metabolic encephalopathy; E43 Unspecified severe protein-calorie malnutrition; L89.152 Pressure ulcer of sacral region, stage 2; R64 Cachexia; J15.6 Pneumonia due to other Gram-negative bacteria; G20 Parkinson's disease; N40.0 Benign prostatic hyperplasia without lower urinary tract symptoms; G40.909 Epilepsy, unspecified, not intractable, without status epilepticus; J44.9 Chronic obstructive pulmonary disease, unspecified; D63.8 Anemia in other chronic diseases classified elsewhere; E87.1 Hypo-osmolality and hyponatremia; F09 Unspecified mental disorder due to known physiological condition; I48.91 Unspecified atrial fibrillation; I70.0 Atherosclerosis of aorta; Z79.899 Other long term (current) drug therapy; Z79.51 Long term (current) use of inhaled steroids; Z68.1 Body mass index [BMI] 19.9 or less, adult; N39.0 Urinary tract infection, site not specified; B96.20 Unspecified Escherichia coli [E. coli] as the cause of diseases classified elsewhere; E87.6 Hypokalemia; F17.200 Nicotine dependence, unspecified, uncomplicated; F32.9 Major depressive disorder, single episode, unspecified; G89.29 Other chronic pain; N18.3 Chronic kidney disease, stage 3 (moderate); K59.00 Constipation, unspecified; K21.9 Gastro-esophageal reflux disease without esophagitis; I12.9 Hypertensive chronic kidney disease with stage 1 through stage 4 chronic kidney disease, or unspecified chronic kidney disease; E86.0 Dehydration; J15.9 Unspecified bacterial pneumonia
CPT/HCPCS: 36415; 36569; 36600; 71010-TC; 80048-TC; 80053-TC; 80061-TC; 80076-TC; 80202-TC; 81000-TC; 82272-TC; 82306; 82533; 82728-TC; 82746; 82784; 83021; 83540-TC; 83605-TC; 83735-TC; 83880; 84100-TC; 84155; 84156; 84165; 84166; 84439-TC; 84443-TC; 84484-TC; 85025-TC; 85045-TC; 85610-TC; 85660; 85730-TC; 86334; 86850-TC; 86921-TC; 87040-TC; 87081-TC; 87086-TC; 87186-TC; 93307-TC; 94799-TC; 97110-TC; 97116-TC; 97530-TC; A4216; A4606; A6248; A6402; A6403; J0282; J0885; J1644; J1956; J2185; J2270; J2543; J2916; J2930; J3370; J3475; J3490; J7030; J7040; J7042; J7050; J7060; P9016-BL; Z7610